=== PATIENT | male | born 1955 | race Caucasian/White ===

== ENCOUNTER 2018-10-26 09:11 | Outpatient (CLI) | payer MEDICARE | END 2018-10-26 09:12 | disposition critical access hospital (66) | LOC: EMS 09:11 | PROVIDERS: ATTEND Surgery | DX: M54.2 Cervicalgia (principal); S01.111A Laceration without foreign body of right eyelid and periocular area, initial encounter; R11.2 Nausea with vomiting, unspecified; R07.81 Pleurodynia; W18.30XA Fall on same level, unspecified, initial encounter; Y92.009 Unspecified place in unspecified non-institutional (private) residence as the place of occurrence of the external cause | CPT/HCPCS: A0425; A0427 ==

== ENCOUNTER 2018-10-26 09:36 | Emergency (ER) | payer MEDICARE ==
[2018-10-26] MEDS ORDERED: SODIUM CHLORIDE 0.9% 1,000 ML IV ONE (09:45)
[2018-10-26] MEDS ORDERED: PROMETHAZINE INJ 25 MG in SODIUM CHLORIDE 0.9% 50 ML IV STA (09:45)
[2018-10-26] MEDS ORDERED: MORPHINE 2 MG/ML CARPUJECT IVP STA ×2 (09:45→11:02)
--- NOTE | 2018-10-26 09:50 | ED Physician Documentation ---
History of Present Illness - Stated complaint Stated Complaint: GLF - Chief complaint Chief Complaint: Trauma Hd/Nk - Additonal information Additional information: hx from pt 62 male fell 2 days ago - approx 10 PM Sat night states the power was out in his house he got up to turn off the space heater thinks he tripped and fell hit right side of head awoke 6 hr later about 4 AM Friday morning had R ALMENDAREZ, blood on floor, neck pain, R rib pain, RUQ pain no arm leg hip pain too painful to get up so was on floor another 24 + hr incont of urine no blood thinners denies illness CP palp etc prior to fall and HI with syncope only drinks rarely (so doubt DT / seizure) Review of Systems Constitutional: denies: Fever Ears: denies: Drainage/discharge Nose: denies: Epistaxis Cardiac: reports: Chest pain / pressure (R ribs) Respiratory: denies: Dyspnea GI: reports: Abdominal Pain (RUQ) : reports: Incontinent (due to not being able to get up off floor) Skin: reports: Laceration (s) Musculoskeletal: reports: Neck pain. denies: Joint pain Neurologic: reports: Generalized weakness, Headache, Head injury. denies: Focal weakness, Numbness Endocrine: denies: Easy bruising / bleeding Immunocompromised: denies: Immunocompromised PD PAST MEDICAL HISTORY - Present Medications Home Medications: Ambulatory Orders Medication Instructions Recorded Confirmed Lidocaine Patch 5% [Lidoderm Patch] 1 patch TOP DAILY PRN #10 patch 10/26/18 - Allergies Allergies/Adverse Reactions: Allergies Allergy/AdvReac Type Severity Reaction Status Date / Time No Known Drug Allergies Allergy Verified 10/26/18 09:43 PD ED PE NORMAL - Vitals Vital signs reviewed: Yes - General General: Alert and oriented X 3 (GCS 15) - HEENT HEENT: PERRL, Other (early ecchymosis to R periorbital and posterior parietal region, lac lateral to right eye appears superfical, EOMI, no proptosis, no hyphema) - Neck Neck: No: No bony TTP (+ TTP - pt could not tolerate collare or towel bolster) - Cardiac Cardiac: RRR - Respiratory Respiratory: No respiratory distress, Clear bilaterally, Other (TTP right mid to lower ribs) - Abdomen Abdomen: Other (TTP RUQ s peritoneal sx or distension) - Derm Derm: Normal color - Extremities Extremities: No deformity, No tenderness to palpate - Neuro Neuro: Alert and oriented X 3, 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, No motor deficit, No sensory deficit, Normal speech Eye Opening: Spontaneous Motor: Obeys Commands Verbal: Oriented GCS Score: 15 Results - Vitals Vitals: Vital Signs - 24 hr 10/26/18 10/26/18 10/26/18 09:38 10:00 11:00 Temperature 36.3 C L Heart Rate 99 98 100 Respiratory 12 18 18 Rate Blood Pressure 162/95 H 149/90 H 124/77 O2 Saturation 96 95 95 10/26/18 10/26/18 10/26/18 11:30 12:00 12:30 Temperature Heart Rate 100 100 96 Respiratory 20 18 18 Rate Blood Pressure 136/78 H 129/88 H 153/90 H O2 Saturation 96 97 100 10/26/18 13:11 Temperature Heart Rate 98 Respiratory 24 Rate Blood Pressure 169/89 H O2 Saturation 100 Oxygen O2 Source Room air - EKG (time done) 0950 Rate: Rate (enter#) Rhythm: NSR Intervals: Normal [place] QRS: Normal Ischemia: Normal ST segments - Labs Labs: Laboratory Tests 10/26/18 10/26/18 10/26/18 09:53 09:53 09:53 WBC 6.7 RBC 4.55 L Hgb 15.2 Hct 45.2 MCV 99.3 H MCH 33.5 H MCHC 33.7 RDW 13.9 Plt Count 208 MPV 8.4 Neut # (Auto) 5.3 Lymph # (Auto) 1.0 L [place] # (Auto) 0.3 Eos # (Auto) 0.0 Baso # (Auto) 0.0 Absolute Nucleated RBC 0.00 Nucleated RBC % 0.0 Sodium 137 Potassium 3.9 Chloride 105 Carbon Dioxide 20 L Anion Gap 12.0 BUN 15 Creatinine 0.6 Estimated GFR (MDRD) 136 Glucose 89 Calcium 8.6 Total Bilirubin 1.2 H AST 45 H ALT 28 Alkaline Phosphatase 85 Total Creatine Kinase 60 Troponin I < 0.04 Total Protein 7.4 Albumin 4.4 Globulin 3.0 Albumin/Globulin Ratio 1.5 Lipase 30 Blood Type Antibody Screen 10/26/18 09:53 WBC RBC Hgb Hct MCV MCH MCHC RDW Plt Count MPV Neut # (Auto) Lymph # (Auto) [place] # (Auto) Eos # (Auto) Baso # (Auto) Absolute Nucleated RBC Nucleated RBC % Sodium Potassium Chloride Carbon Dioxide Anion Gap BUN Creatinine Estimated GFR (MDRD) Glucose Calcium Total Bilirubin AST ALT Alkaline Phosphatase Total Creatine Kinase Troponin I Total Protein Albumin Globulin Albumin/Globulin Ratio Lipase Blood Type AB POSITIVE Antibody Screen NEGATIVE - Rads (name of study) CTH Radiology: See rad report (neg) CTCS Radiology: See rad report (neg) CT chest Radiology: See rad report (no acute) CT AP Radiology: See rad report (no acute) PD MEDICAL DECISION MAKING - ED course ED course: all CTs neg pt given IVF lac is small sup not needing repair pt up and ambulating safely will dc if friend can stay with Departure - Departure Disposition: 01 Home, Self Care Clinical Impression: Fall Qualifiers: Encounter type: initial encounter Qualified Code(s): W19.XXXA - Unspecified fall, initial encounter Head injury Qualifiers: Encounter type: initial encounter Qualified Code(s): S09.90XA - Unspecified injury of head, initial encounter Acute neck sprain Qualifiers: Encounter type: initial encounter Qualified Code(s): S13.9XXA - Sprain of join ts and ligaments of unspecified parts of neck, initial encounter Chest wall contusion Qualifiers: Encounter type: initial encounter Laterality: right Qualified Code(s): S20.211A - Contusion of right front wall of thorax, initial encounter Condition: Good Instructions: ED Contusion Chest Wall, ED Head Injury Closed, ED Sprain Strain Neck Prescriptions: Lidocaine Patch 5% [Lidoderm Patch] 1 patch TOP DAILY PRN #10 patch PRN Reason: pain Comments: Thankfully all the CT scans were fine - no skull spine or rib fracture, no brain bleeding, no liver injury. So I actually think it is safe for you to go home I have prescribed lidocaine patches for the pain to your ribs - and you can take tylenol as well. Use the incentive spirometer we gave you to keep the lungs inflated and prevent collapse and infection Also zofran for the vomiting. Please rest. Drink plenty of fluids Stay with another responsible adult who can watch over you for the next 2 days. Return if worse in any way Discharge Date/Time: 10/26/18 14:00
[2018-10-26] MEDS ORDERED: IOVERSOL 320 100 ML VIAL IVP ONE ×2 (09:55→11:48)
[2018-10-26 10:04] LABS: BASOPHILS % (AUTO) 0.7 %; EOSINOPHILS % (AUTO) 0.3 %; HGB - HEMOGLOBIN 15.2 g/dL (14.0-18.0); LYMPHOCYTES % (AUTO) 14.4 %; MEAN CORPUSCULAR HEMOGLOBIN 33.5 pg (27.0-31.0); MEAN CORPUSCULAR HGB CONC 33.7 g/dL (32.0-36.0); MEAN CORPUSCULAR VOLUME 99.3 fL (80.0-94.0); MEAN PLATELET VOLUME 8.4 fL (7.4-11.4); MONOCYTES # (AUTO) 0.3 10^3/uL (0.0-1.0); MONOCYTES % (AUTO) 5.1 %; NEUTROPHILS # (AUTO) 5.3 10^3/uL (1.5-6.6); NEUTROPHILS % (AUTO) 79.5 %; PLT - PLATELET COUNT 208 10^3/uL (130-450); RED BLOOD COUNT 4.55 10^6/uL (4.70-6.10); RED CELL DISTRIBUTION WIDTH 13.9 % (12.0-15.0); WHITE BLOOD COUNT 6.7 x10^3/uL (4.8-10.8)
[2018-10-26 10:19] LABS: ALBUMIN 4.4 g/dL (3.2-5.5); ALBUMIN/GLOBULIN RATIO 1.5 (1.0-2.2); BILIRUBIN,TOTAL 1.2 mg/dL (0.2-1.0); CALCIUM 8.6 mg/dL (8.5-10.3); CREATININE 0.6 mg/dL (0.6-1.2); TOTAL PROTEIN 7.4 g/dL (6.7-8.2)
--- NOTE | 2018-10-26 11:12 | CT Report ---
Reason: fall HI LOC lac Procedure Date: 10/26/2018 Accession Number: [id number] / [id number] Procedure: CT - Head W/O CPT Code: FULL RESULT: EXAM: CT HEAD EXAM DATE: 10/26/2018 10:25 AM. CLINICAL HISTORY: Fall, head injury, laceration. COMPARISON: None. TECHNIQUE: Multiaxial CT images were obtained from the foramen magnum to the vertex. Reformats: Sagittal and coronal. IV contrast: None. In accordance with CT protocol optimization, one or more of the following dose reduction techniques were utilized for this exam: automated exposure control, adjustment of mA and/or KV based on patient size, or use of iterative reconstructive technique. FINDINGS: Parenchyma: No intraparenchymal hemorrhage. No evidence of mass, midline shift, or CT findings of infarction. Garvey-white differentiation is distinct. Extraaxial Spaces: Normal for age. No subdural or epidural collections identified. Ventricles: Normal in size and position. Sinuses and Orbits: Imaged paranasal sinuses, orbits, and mastoids show no significant abnormality. Bones: No evidence of fracture or calvarial defect. Other: Note is made of a bandage along the posterior head. IMPRESSION: No acute intracranial abnormalities detected. RADIA
--- NOTE | 2018-10-26 11:13 | CT Report ---
Reason: fall HI neck pain Procedure Date: 10/26/2018 Accession Number: [id number] / [id number] Procedure: CT - Cervical Spine W/O CPT Code: FULL RESULT: EXAM: CT CERVICAL SPINE WITHOUT CONTRAST DATE: 10/26/2018 10:25 AM. HISTORY: Fall, high neck pain. COMPARISONS: None. TECHNIQUE: Thin-section axial images were acquired of the cervical spine without contrast. Post-processing: Coronal and sagittal reformats. Other: None. In accordance with CT protocol optimization, one or more of the following dose reduction techniques were utilized for this exam: automated exposure control, adjustment of mA and/or KV based on patient size, or use of iterative reconstructive technique. FINDINGS: Alignment: No scoliosis or spondylolisthesis. Bones: No fracture or bone lesion. Interspace Levels/Facets: Mild multilevel degenerative changes are most pronounced at C6-C7. Musculature: Normal. No fatty atrophy. Other: The paravertebral and prevertebral soft tissues are unremarkable. The lung apices are clear. IMPRESSION: No acute osseous injury to the cervical spine. RADIA
--- NOTE | 2018-10-26 11:16 | CT Report ---
Reason: fall R rib pain Procedure Date: 10/26/2018 Accession Number: [id number] / [id number] Procedure: CT - Chest W/ CPT Code: FULL RESULT: EXAM: CT CHEST EXAM DATE: 10/26/2018 10:51 AM. CLINICAL HISTORY: Acute pain due to trauma. COMPARISONS: None. TECHNIQUE: Routine helical CT imaging was performed through the chest. IV contrast: 90 mL Optiray 320. Reconstructions: Coronal and sagittal. In accordance with CT protocol optimization, one or more of the following dose reduction techniques were utilized for this exam: automated exposure control, adjustment of mA and/or KV based on patient size, or use of iterative reconstructive technique. FINDINGS: Lungs/Pleura: Minor dependent atelectasis is seen. There is no effusion, pulmonary contusion, or pneumothorax. Mediastinum: Heart size is normal. Moderate calcified coronary artery disease is seen. There is no pericardial effusion or adenopathy. Bones: No displaced rib fracture or gross deformity of the osseous structures identified. Visualized Abdomen: See separate report. Other: None. IMPRESSION: No acute cardiopulmonary or osseous abnormality identified. RADIA
--- NOTE | 2018-10-26 11:20 | CT Report ---
Reason: trauma RUQ pain Procedure Date: 10/26/2018 Accession Number: [id number] / [id number] Procedure: CT - Abdomen/Pelvis W/ CPT Code: FULL RESULT: EXAM: CT ABDOMEN AND PELVIS EXAM DATE: 10/26/2018 10:51 AM. CLINICAL HISTORY: Right upper quadrant pain. Acute pain due to trauma. COMPARISONS: None. TECHNIQUE: Routine helical CT imaging was performed through the abdomen and pelvis. IV contrast: 90 mL Optiray 320. Enteric contrast: No. Reconstructions: Coronal and sagittal. In accordance with CT protocol optimization, one or more of the following dose reduction techniques were utilized for this exam: automated exposure control, adjustment of mA and/or KV based on patient size, or use of iterative reconstructive technique. FINDINGS: Lung Bases: See separate report. Liver: Normal. No masses. Gallbladder/Bile Ducts: Cholecystectomy changes are seen. There is no biliary dilation. Spleen: Normal. Pancreas: Normal. Adrenal Glands: Normal. Kidneys: Small exophytic cyst in the mid left kidney is seen. No masses or hydronephrosis. Peritoneal Cavity/Bowel: There is mild predominantly left hemicolon diverticulosis without evidence of diverticulitis. There is no obstruction or ileus. No free fluid or free air. The appendix is well visualized and normal. Pelvic Organs: Normal. The bladder and visualized pelvic organs are within normal limits. Vasculature: No aneurysms or other significant abnormality. Bones: There is deformity of bilateral obturator rings related to old trauma. Other: None. IMPRESSION: 1. No acute osseous abnormality demonstrated status post cholecystectomy. 2. Mild sigmoid diverticulosis without diverticula noticed. 3. Deformity of bilateral obturator rings related to old trauma. No acute osseous abnormality is demonstrated. RADIA
[2018-10-26] MEDS ORDERED: PROMETHAZINE INJ 12.5 MG in SODIUM CHLORIDE 0.9% 50 ML IV STA (12:08)
[2018-10-26] MEDS ORDERED: ACETAMINOPHEN 325 MG TABLET PO STA (12:18)
[2018-10-26] MEDS ORDERED: LIDOCAINE PATCH 5% TOP STA (12:18)
[2018-10-26 13:12] VITALS: BP 169/89
== END 2018-10-26 14:00 | disposition home or self-care (01) ==
LOC: EDUNIT# → ED 09:36
DX: S05.31XA Ocular laceration without prolapse or loss of intraocular tissue, right eye, initial encounter (principal); S09.90XA Unspecified injury of head, initial encounter; S13.9XXA Sprain of joints and ligaments of unspecified parts of neck, initial encounter; S20.211A Contusion of right front wall of thorax, initial encounter; W01.10XA Fall on same level from slipping, tripping and stumbling with subsequent striking against unspecified object, initial encounter; Y92.009 Unspecified place in unspecified non-institutional (private) residence as the place of occurrence of the external cause
CPT/HCPCS: 36415; 70450; 71260; 72125; 74177; 80053; 82550; 83690; 84484; 85025; 86850; 86900; 86901; 93005; 96361; 96365; 96375; 96376; 99284; A9270; J7040; Q9967

== ENCOUNTER 2019-06-24 09:40 | Outpatient (CLI) | payer MEDICARE | END 2019-06-24 09:41 | disposition short-term general hospital (02) | LOC: EMS 09:40 | PROVIDERS: ATTEND Surgery | DX: R51 Headache (principal); R11.2 Nausea with vomiting, unspecified ==

== ENCOUNTER 2020-01-01 16:47 | Outpatient (CLI) | payer MEDICARE | END 2020-01-01 23:59 | disposition critical access hospital (66) | LOC: EMS 16:47 | PROVIDERS: ATTEND Surgery | DX: R11.2 Nausea with vomiting, unspecified (principal); R19.7 Diarrhea, unspecified | CPT/HCPCS: A0425; A0427 ==

== ENCOUNTER 2020-01-01 17:14 | Emergency (ER) | payer MEDICARE ==
[2020-01-01] MEDS ORDERED: SODIUM CHLORIDE 0.9% 1,000 ML IV ONE (17:18)
[2020-01-01] MEDS ORDERED: LOPERAMIDE 2 MG CAPSULE PO STA (17:18)
[2020-01-01] MEDS ORDERED: PROMETHAZINE INJ 25 MG in SODIUM CHLORIDE 0.9% 50 ML IV STA ×2 (17:18→19:05)
--- NOTE | 2020-01-01 17:20 | ED Physician Documentation ---
PD HPI NVD - Stated complaint Stated Complaint: VOMITING - History obtained from History obtained from: Patient (Relatively healthy 64-year-old gentleman developed profuse vomiting and diarrhea starting last night. He tried a CBD tincture that was ineffective. There is minimal abdominal pain with it. No headache. No fevers. No recent travel.) - Additonal information Additional information: Received 4 mg of Zofran in route without improvement. Review of Systems Ten Systems: 10 systems reviewed and negative Constitutional: denies: Fever, Chills Cardiac: denies: Chest pain / pressure, Palpitations Respiratory: denies: Dyspnea, Cough GI: reports: Nausea, Vomiting, Diarrhea. denies: Abdominal Pain : denies: Dysuria, Frequency PD PAST MEDICAL HISTORY - Past Medical History Past Medical History: No - Past Surgical History Past Surgical History: Yes General: Cholecystectomy - Allergies Allergies/Adverse Reactions: Allergies Allergy/AdvReac Type Severity Reaction Status Date / Time doxycycline Allergy Unknown Verified 01/01/20 17:20 Penicillins Allergy Unknown Verified 01/01/20 17:20 - Social History Does the pt smoke?: No Smoking Status: Never smoker PD ED PE NORMAL - Vitals Vital signs reviewed: Yes - General General: Alert and oriented X 3, No acute distress - HEENT HEENT: PERRL, EOMI - Neck Neck: Supple, no meningeal sign, No bony TTP - Cardiac Cardiac: RRR, No murmur - Respiratory Respiratory: No respiratory distress, Clear bilaterally - Abdomen Abdomen: Normal bowel sounds, Soft, Non tender - Back Back: No CVA TTP, No spinal TTP - Derm Derm: Normal color, Warm and dry - Extremities Extremities: No edema, No calf tenderness / cord - Neuro Neuro: Alert and oriented X 3, No motor deficit, No sensory deficit, Normal speech Results - Vitals Vitals: Vital Signs - 24 hr 01/01/20 01/01/20 17:20 17:51 Temperature 37 C 37.2 C Heart Rate 99 105 H Respiratory 22 18 Rate Blood Pressure 167/90 H 158/89 H O2 Saturation 100 100 Oxygen O2 Source Room air - Labs Labs: Laboratory Tests 01/01/20 01/01/20 01/01/20 17:40 17:40 17:40 WBC 7.1 RBC 4.00 L Hgb 14.2 Hct 41.9 L MCV 104.8 H MCH 35.5 H MCHC 33.9 RDW 13.1 Plt Count 188 MPV 9.9 Neut # (Auto) 6.3 Lymph # (Auto) 0.4 L [place] # (Auto) 0.3 Eos # (Auto) 0.0 Baso # (Auto) 0.0 Absolute Nucleated RBC 0.00 Nucleated RBC % 0.0 Sodium 140 Potassium 3.1 L Chloride 102 Carbon Dioxide 23 Anion Gap 15.0 H BUN 12 Creatinine 0.7 Estimated GFR (MDRD) 113 Glucose 127 H Calcium 9.1 Total Bilirubin 2.2 H AST 56 H ALT 28 Alkaline Phosphatase 83 Total Protein 6.9 Albumin 4.0 Globulin 2.9 Albumin/Globulin Ratio 1.4 Lipase 35 Ethyl Alcohol < 5.0 PD MEDICAL DECISION MAKING - ED course ED course: 64-year-old gentleman with a clinical syndrome consistent with gastroenteritis with vomiting and diarrhea. Benign abdominal examination. He received Zofran in route without improvement and requested some Phenergan for specifically and this was administered along with some Imodium and IV fluids. He was doing much better after this, developed some leg cramps but that responded to Toradol. Nausea came back a little bit and was given some more Phenergan. Passed a p.o. challenge and requested discharge. Departure - Departure Disposition: 01 Home, Self Care Clinical Impression: Gastroenteritis Condition: Good Record reviewed to determine appropriate education?: Yes Instructions: ED Gastroenteritis Viral Comments: Return tomorrow morning if not better, anytime if worse. You do have mild elevation of your liver enzymes, please mention this in follow-up with your doctor, follow-up with your doctor next available appointment.
[2020-01-01 17:45] LABS: BASOPHILS % (AUTO) 0.4 %; HGB - HEMOGLOBIN 14.2 g/dL (14.0-18.0); LYMPHOCYTES # (AUTO) 0.4 10^3/uL (1.5-3.5); LYMPHOCYTES % (AUTO) 5.8 %; MEAN CORPUSCULAR HEMOGLOBIN 35.5 pg (27.0-31.0); MEAN CORPUSCULAR HGB CONC 33.9 g/dL (32.0-36.0); MEAN CORPUSCULAR VOLUME 104.8 fL (80.0-94.0); MEAN PLATELET VOLUME 9.9 fL (7.4-11.4); MONOCYTES # (AUTO) 0.3 10^3/uL (0.0-1.0); MONOCYTES % (AUTO) 4.4 %; NEUTROPHILS # (AUTO) 6.3 10^3/uL (1.5-6.6); PLT - PLATELET COUNT 188 10^3/uL (130-450); RED CELL DISTRIBUTION WIDTH 13.1 % (12.0-15.0); WHITE BLOOD COUNT 7.1 x10^3/uL (4.8-10.8)
[2020-01-01 18:00] LABS: ALBUMIN/GLOBULIN RATIO 1.4 (1.0-2.2); BILIRUBIN,TOTAL 2.2 mg/dL (0.2-1.0); CALCIUM 9.1 mg/dL (8.5-10.3); CREATININE 0.7 mg/dL (0.6-1.2); TOTAL PROTEIN 6.9 g/dL (6.7-8.2)
[2020-01-01] MEDS ORDERED: KETOROLAC 30 MG/ML VIAL IVP STA (18:14)
[2020-01-01] MEDS ORDERED: ONDANSETRON ODT 4 MG Prepack 2 TL STA (19:05)
[2020-01-01 19:54] VITALS: BP 153/68
== END 2020-01-01 19:55 | disposition home or self-care (01) ==
LOC: EDUNIT# → ED 17:14
DX: K52.9 Noninfective gastroenteritis and colitis, unspecified (principal)
CPT/HCPCS: 36415; 80053; 83690; 85025; 96365; 96366; 96375; 99283; A9270; J7040; 80320

== ENCOUNTER 2020-05-01 07:35 | Outpatient (CLI) | payer MEDICARE | END 2020-05-01 07:36 | disposition critical access hospital (66) | LOC: EMS 07:35 | PROVIDERS: ATTEND Surgery | DX: R11.2 Nausea with vomiting, unspecified (principal) | CPT/HCPCS: A0425; A0427 ==

== ENCOUNTER 2020-05-01 08:00 | Emergency (ER) | payer MEDICARE ==
[2020-05-01] MEDS ORDERED: PROMETHAZINE INJ 25 MG in SODIUM CHLORIDE 0.9% 50 ML IV STA (08:28)
[2020-05-01] MEDS ORDERED: SODIUM CHLORIDE 0.9% 1,000 ML IV STA (08:28)
--- NOTE | 2020-05-01 08:31 | ED Physician Documentation ---
History of Present Illness - Stated complaint Stated Complaint: N/V - Chief complaint Chief Complaint: Abd Pain - History obtained from History obtained from: Patient - Additonal information Additional information: Patient comes emergency department complaining of nausea and vomiting for the last 6 3 days. He states that he was previously feeling well, and was not exposed to any sick contacts that he knows of. He states he has not had any diarrhea or fevers. He states his entire abdomen feels "sore" from all the vomiting, but denies any deeper pain. He states that he has not been able to hold anything down since the symptoms started. Patient denies any chest symptoms. No other complaints at this time. He states he has had a cholecystectomy. No history of any other intra-abdominal issues. No history of cyclical vomiting. Patient states he had a similar episode 6 months ago and that Phenergan was very helpful. He had a work-up at that time, but no distinct cause of the symptoms was found. Review of Systems Ten Systems: 10 systems reviewed and negative Constitutional: reports: Reviewed and negative Eyes: reports: Reviewed and negative Ears: reports: Reviewed and negative Nose: reports: Reviewed and negative Throat: reports: Reviewed and negative Cardiac: reports: Reviewed and negative Respiratory: reports: Reviewed and negative GI: reports: Abdominal Pain, Nausea, Vomiting : reports: Reviewed and negative Skin: reports: Reviewed and negative Musculoskeletal: reports: Reviewed and negative Neurologic: reports: Reviewed and negative Psychiatric: reports: Reviewed and negative Endocrine: reports: Reviewed and negative Immunocompromised: reports: Reviewed and negative PD PAST MEDICAL HISTORY - Past Medical History Cardiovascular: None Respiratory: None Neuro: None Endocrine/Autoimmune: None GI: GERD : Other HEENT: None Psych: Depression Musculoskeletal: None Derm: None - Past Surgical History Past Surgical History: Yes General: Cholecystectomy - Present Medications Home Medications: Ambulatory Orders Medication Instructions Recorded Confirmed Ondansetron Odt [Zofran] 4 mg TL Q6H PRN #10 tablet 05/01/20 Promethazine Supp [Phenergan Supp] 25 mg MN Q6H PRN #25 supp 05/01/20 - Allergies Allergies/Adverse Reactions: Allergies Allergy/AdvReac Type Severity Reaction Status Date / Time doxycycline Allergy Unknown Verified 01/01/20 17:20 Penicillins Allergy Unknown Verified 01/01/20 17:20 - Social History Does the pt smoke?: No Smoking Status: Never smoker Does the pt drink ETOH?: Yes Does the pt have substance abuse?: Yes - Immunizations Immunizations are current?: No Immunizations: TDAP >10years/unknown - POLST Patient has POLST: No PD ED PE NORMAL - Vitals Vital signs reviewed: Yes - General General: Alert and oriented X 3, No acute distress - HEENT HEENT: Atraumatic, PERRL, EOMI, Moist mucous membranes - Neck Neck: Supple, no meningeal sign - Cardiac Cardiac: RRR, No murmur - Respiratory Respiratory: No respiratory distress, Clear bilaterally - Abdomen Abdomen: Soft, Non distended, Other (Patient has moderate diffuse tenderness without rebound or guarding) - Derm Derm: Normal color, Warm and dry, No rash - Extremities Extremities: No deformity, No edema, No calf tenderness / cord - Neuro Neuro: Alert and oriented X 3, Other (Grossly normal) - Psych Psych: Normal mood, Normal affect Results - Vitals Vitals: Vital Signs - 24 hr 05/01/20 05/01/20 12:16 13:43 Temperature 37.2 C Heart Rate 80 70 Respiratory 16 18 Rate Blood Pressure 144/76 H 140/89 H O2 Saturation 97 95 Oxygen O2 Source Room air - Labs Labs: Laboratory Tests 05/01/20 05/01/20 09:46 09:46 WBC 6.0 RBC 3.79 L Hgb 13.9 L Hct 40.5 L MCV 106.9 H MCH 36.7 H MCHC 34.3 RDW 13.1 Plt Count 107 L MPV 10.6 Neut # (Auto) 5.3 Lymph # (Auto) 0.2 L [place] # (Auto) 0.3 Eos # (Auto) 0.1 Baso # (Auto) 0.0 Absolute Nucleated RBC 0.02 Nucleated RBC % 0.3 Sodium 137 Potassium 3.5 Chloride 104 Carbon Dioxide 20 L Anion Gap 13.0 BUN 9 Creatinine 0.7 Estimated GFR (MDRD) 113 Glucose 84 Calcium 8.1 L Total Bilirubin 2.0 H AST 75 H ALT 38 Alkaline Phosphatase 86 Total Protein 6.0 L Albumin 3.5 Globulin 2.5 Albumin/Globulin Ratio 1.4 Lipase 50 PD MEDICAL DECISION MAKING - ED course Complexity details: reviewed results, re-evaluated patient, considered differential, d/w patient ED course: Patient was treated symptomatically with IV fluids and Phenergan, and worked up with labs. Labs were unremarkable. Pt had been feeling better, but vomited a couple more times in the ED. He was given a dose of Zofran, and ultimately, another 12.5 mg of Phenergan, before he was feeling well enough to go home. He has been given prescriptions for antiemetics. We have discussed home management of the sx, as well as the usual indications for return. Departure - Departure Disposition: 01 Home, Self Care Clinical Impression: Vomiting Qualifiers: Vomiting type: bilious vomiting Nausea presence: with nausea Qualified Code(s): R11.14 - Bilious vomiting Condition: Stable Instructions: ED Nausea Vomiting Prescriptions: Promethazine Supp [Phenergan Supp] 25 mg [place] Q6H PRN #25 supp PRN Reason: nausea Ondansetron Odt [Zofran] 4 mg TL Q6H PRN #10 tablet PRN Reason: Nausea / Vomiting Comments: Your labs look good. Most likely, you have contracted 1 of the many viruses that cause nausea and vomiting. In general, these are self-limited and you should be feeling better in the next few days. However, if you continue to have issues with unexplained vomiting, you may need to see your doctor for referral to gastroenterology to determine whether you have any underlying issues that may be predisposing you to nausea and vomiting. Discharge Date/Time: 05/01/20 13:45
[2020-05-01 09:52] LABS: BASOPHILS % (AUTO) 0.3 %; EOSINOPHILS # (AUTO) 0.1 10^3/uL (0.0-0.7); EOSINOPHILS % (AUTO) 1.7 %; HGB - HEMOGLOBIN 13.9 g/dL (14.0-18.0); LYMPHOCYTES # (AUTO) 0.2 10^3/uL (1.5-3.5); MEAN CORPUSCULAR HEMOGLOBIN 36.7 pg (27.0-31.0); MEAN CORPUSCULAR HGB CONC 34.3 g/dL (32.0-36.0); MEAN CORPUSCULAR VOLUME 106.9 fL (80.0-94.0); MEAN PLATELET VOLUME 10.6 fL (7.4-11.4); MONOCYTES # (AUTO) 0.3 10^3/uL (0.0-1.0); MONOCYTES % (AUTO) 5.7 %; NEUTROPHILS # (AUTO) 5.3 10^3/uL (1.5-6.6); NEUTROPHILS % (AUTO) 87.6 %; PLT - PLATELET COUNT 107 10^3/uL (130-450); RED BLOOD COUNT 3.79 10^6/uL (4.70-6.10); RED CELL DISTRIBUTION WIDTH 13.1 % (12.0-15.0)
[2020-05-01 10:04] LABS: ALBUMIN 3.5 g/dL (3.2-5.5); ALBUMIN/GLOBULIN RATIO 1.4 (1.0-2.2); CALCIUM 8.1 mg/dL (8.5-10.3); CREATININE 0.7 mg/dL (0.6-1.2)
[2020-05-01] MEDS ORDERED: diphenhydrAMINE INJ 50 MG/ML VIAL IVP STA (10:52)
[2020-05-01] MEDS ORDERED: ONDANSETRON 4 MG/2 ML VIAL IVP STA (10:52)
[2020-05-01] MEDS ORDERED: KETOROLAC 30 MG/ML VIAL IVP STA (10:52)
[2020-05-01] MEDS ORDERED: PROMETHAZINE INJ 12.5 MG in SODIUM CHLORIDE 0.9% 50 ML IV STA (12:52)
[2020-05-01 13:44] VITALS: BP 140/89
== END 2020-05-01 13:45 | disposition home or self-care (01) ==
LOC: EDUNIT# → ED 08:00
DX: R11.14 Bilious vomiting (principal); Z90.49 Acquired absence of other specified parts of digestive tract
CPT/HCPCS: 36415; 80053; 83690; 85025; 96365; 96366; 96375; 99284; J1200; J7040

== ENCOUNTER 2021-11-13 10:36 | Outpatient (CLI) | payer MEDICARE | END 2021-11-13 10:37 | disposition critical access hospital (66) | LOC: EMS 10:36 | DX: M25.562 Pain in left knee (principal); M25.462 Effusion, left knee; M54.2 Cervicalgia | CPT/HCPCS: A0425; A0429 ==

== ENCOUNTER 2021-11-13 11:01 | Emergency (ER) | payer MEDICARE ==
[2021-11-13] MEDS ORDERED: HYDROmorphone 1 MG/ML CARPUJECT IM STA (11:49)
[2021-11-13] MEDS ORDERED: ACETAMINOPHEN 325 MG TABLET PO STA (11:50)
--- NOTE | 2021-11-13 11:58 | ED Physician Documentation ---
History of Present Illness - Stated complaint Stated Complaint: LT KNEE PX - Chief complaint Chief Complaint: Ext Problem - Additonal information Additional information: 65-year-old male presents to the emergency department for evaluation of 1 week neck pain as well as left knee pain. Denies any fevers, no falls or trauma. He has been taking Advil PM but only once daily without relief of pain. He was supposed to see his primary care provider yesterday but due to pain he missed the appointment therefore he presents today via EMS. Over the last week he has had some mild swelling of the left knee. No erythema. He is ambulatory on the knee though it is painful. He is also begun to develop some cervical neck pain with radiation down his back. Difficulty moving his head to the right. No paresthesias. He did speak with his primary doctor and is scheduled to see her now on the . He is concerned that he could have psoriatic arthritis. He reports that a prescription for a steroid burst has been sent to the [email or web address] but they were out of the medication so it may be a few days before can be filled. He is requesting analgesia here in the ER. Review of Systems Constitutional: denies: Fever, Chills Eyes: reports: Reviewed and negative Nose: reports: Reviewed and negative Cardiac: reports: Reviewed and negative Respiratory: reports: Reviewed and negative GI: reports: Reviewed and negative : reports: Reviewed and negative Musculoskeletal: reports: Neck pain, Joint pain, Joint swelling Neurologic: reports: Reviewed and negative PD PAST MEDICAL HISTORY - Past Medical History Cardiovascular: None Respiratory: None Neuro: None Endocrine/Autoimmune: None GI: GERD : Other HEENT: None Psych: Depression Musculoskeletal: None Derm: None - Past Surgical History Past Surgical History: Yes General: Cholecystectomy - Present Medications Home Medications: Ambulatory Orders Medication Instructions Recorded Confirmed Ondansetron Odt [Zofran] 4 mg TL Q6H PRN #10 tablet 05/01/20 Promethazine Supp [Phenergan Supp] 25 mg [place] Q6H PRN #25 supp 05/01/20 HYDROcod/ACETAM 5/325 [[place] 5/325] 1 tab PO BID PRN #5 tablet 11/13/21 - Allergies Allergies/Adverse Reactions: Allergies Allergy/AdvReac Type Severity Reaction Status Date / Time doxycycline Allergy Unknown Verified 11/13/21 11:10 Penicillins Allergy Unknown Verified 11/13/21 11:10 - Social History Does the pt smoke?: No Smoking Status: Never smoker Does the pt drink ETOH?: Yes Does the pt have substance abuse?: Yes - Immunizations Immunizations are current?: No Immunizations: TDAP >10years/unknown - POLST Patient has POLST: No PD ED PE EXPANDED - General General: Alert, No acute distress, Well developed/nourished - Neck Neck: Limited ROM (Reduced right lateral rotation secondary to pain. No midline spinous tenderness. Mild right lateral paraspinous tenderness. No swelling or erythema. Normal forward flexion and extension.). No: Bony TTP - Cardiac Cardiac: Regular Rate, Radial strong equal, Pedal strong equal, Cap refill < 2 sec - Respiratory Respiratory: Clear to ausultation jaquan. No: Distress, Labored - Abdomen Abdomen: Normal Bowel sounds. No: Tender to palpation - Extremities Extremities: Left knee (Mild swelling without erythema. No joint laxity. No pain with micromotion tenderness but active range of motion induces pain medially. Palpable effusion.), Other (motor strength 5/5 BUE at shoulder, elbow and wrists) - Neuro Neuro: Alert and Oriented X 3, CNII-XII intact - GCS Eye Opening: Spontaneous Motor: Obeys Commands Verbal: Oriented Total: 15 Results - Vitals Vitals: Vital Signs - 24 hr 11/13/21 11:10 Temperature 37.1 C Heart Rate 86 Respiratory 16 Rate Blood Pressure 138/76 H O2 Saturation 99 Oxygen O2 Source Room air - Rads (name of study) Left knee Radiology: Final report received (Mild medial femoral-tibial compartment osteoarthritis and moderate joint effusion. No fracture or dislocation.) PD MEDICAL DECISION MAKING - ED course Complexity details: reviewed results, re-evaluated patient, considered differential, d/w patient ED course: 65-year-old male presents emergency department with 1 week of acute left knee pain as well as neck pain. He has difficulty moving his neck to the right. Denies any falls or trauma. There have been no fevers. He missed an appointment with his primary care provider yesterday to discuss the joint pain secondary to being in severe pain thus he presents here via EMS. On exam there is mild swelling and tenderness of the left knee medially. No micromotion tenderness. He is able to bear full weight though he does have an antalgic gait. X-ray is suggestive of medial knee compartment arthritis. Patient was given a dose of Dilaudid here in the emergency department with good improvement in his pain and symptoms. He does report that his primary care provider have written a prescription for some outpatient steroids that the patient has yet to fill. Given the lack of suspicion for a septic arthritis will defer any labs. A limited prescription for hydrocodone is going to be sent to the pharmacy. Patient was advised on the appropriate dosing of outpatient tnrs-cns-ugrpbpu medications for Tylenol and ibuprofen in the absence of steroids. Emergent and worsening return precautions were discussed. I am prescribing a short course of short-acting opioid pain medication for this patient. I have reviewed the patients [employer] and no concerning findings were noted. I have discussed that the opioids are for short term therapy only, and will not be refilled from the ED. Departure - Departure Disposition: Home, Self Care Clinical Impression: Arthritis of knee, left, Neck pain Condition: Stable Record reviewed to determine appropriate education?: Yes Follow-Up: THONY RUTH ARNP [Primary Care Provider] - Prescriptions: HYDROcod/ACETAM 5/325 [[place] 5/325] 1 tab PO BID PRN #5 tablet PRN Reason: Pain Comments: Pedro Pablo you are seen in the emergency department today for neck and knee pain. The x-ray of your knee suggest that it you have a mild arthritis that is developing. This is the most likely cause of the pain. Please fill the prescription for the steroid to the your primary care provider prescribed. I suspect that when she began taking these your symptoms will feel a lot better over the next 12 to 36 hours. While you are taking the steroids it is important that you avoid taking an NSAID medication like ibuprofen, Motrin or Advil. When you are not taking the steroids it is safe to take an appropriate dose of ptjj-ysx-anufacp pain medication such as ibuprofen, Motrin or Advil. The recommended dose would be 600 mg 2 or 3 times a day for any discomfort. Alternatively you can take Tylenol 500 mg with food 2-3 times a day as well. When you see your primary care provider on the please discuss this ED visit. They may want to consider outpatient laboratory testing. If at any point you find that your symptoms are worsening, he has knee redness, develop any fevers, have chest pain or shortness of air then please return immediately to the ER for second evaluation. I am prescribing a short course of narcotic pain medication for you. These are potentially dangerous and addictive medications that should be used carefully. These medications may constipate you. Take an ogvx-nks-ivnnlvt stool softener (docusate) twice daily with plenty of water while taking these medications. If you go 24 hours without a bowel movement, take bejo-bny-trgjars miralax, per package instructions. Do not drink or drive while taking these medications. If you received narcotic or sedating medications while in the emergency department, do not drive for 24 hours. Store this medication in a safe, secure place and out of reach of children. It is a violation of federal law to give or sell this medication to another person or to use in a manner other than prescribed. The ED will not refill narcotic prescriptions, including prescriptions lost or stolen. To dispose of unwanted medications: 1. [facility] at [address] in [place] has a medication drop box. They accept prescription medications (in pill form) Friday through Friday 9:00 a.m. to 5:00 p.m. 2. The [facility] [employer] accepts prescription medications (in pill form only) for disposal year round. Call for more informa tion. 3. Contact the [facility] for the next [facility] sponsored prescription drug collection event. , [phone], or [phone]; Note that many narcotic pain relievers also contain Tylenol/acetaminophen. Please ensure that your total dose of acetaminophen from all sources does not exceed 3 g (3000 mg) per day.
--- NOTE | 2021-11-13 12:18 | XRAY Report ---
PROCEDURE: Knee 2 View LT INDICATIONS: pain and swellign X 1 week TECHNIQUE: 2 views of the left knee(s) were acquired. COMPARISON: None. FINDINGS: Bones: No fractures or dislocations. Mild medial femoral tibial compartment osteoarthritis is seen with joint space narrowing. No suspicious bony lesions. Soft tissues: Moderate suprapatellar joint effusion is seen. No suspicious soft tissue calcification s. IMPRESSION: Mild medial femoral tibial compartment osteoarthritis and moderate joint effusion. No fr acture or dislocation. If indicated, MRI of knee can be done for evaluation of internal derangement. Reviewed by: Manuel Angela MD on 11/13/2021 12:16 PM PST Approved by: Manuel Angela MD on 11/13/2021 12:16 PM PST Station ID: [id number]
[2021-11-13 12:46] VITALS: BP 128/78
== END 2021-11-13 12:44 | disposition home or self-care (01) ==
LOC: EDUNIT# → EDBD → ED 11:01
DX: M17.12 Unilateral primary osteoarthritis, left knee (principal); M19.09 Primary osteoarthritis, other specified site
CPT/HCPCS: 73560; 96372; 99283; A9270; J1170

== ENCOUNTER 2022-04-15 08:17 | Outpatient (CLI) | payer MEDICARE | END 2022-04-15 08:18 | disposition short-term general hospital (02) | LOC: EMS 08:17 | DX: R11.2 Nausea with vomiting, unspecified (principal) | CPT/HCPCS: A0425; A0427 ==

== ENCOUNTER 2022-12-30 12:45 | Outpatient (CLI) | payer MEDICARE | END 2022-12-30 12:46 | disposition critical access hospital (66) | LOC: EMS 12:45 | DX: R07.9 Chest pain, unspecified (principal); M25.511 Pain in right shoulder | CPT/HCPCS: A0425; A0429 ==

== ENCOUNTER 2022-12-30 13:14 | Emergency (ER) | payer MEDICARE ==
[2022-12-30 13:50] VITALS: BP 127/85
--- NOTE | 2022-12-30 14:15 | XRAY Report ---
PROCEDURE: Chest 1 View X-Ray INDICATIONS: Chest pain TECHNIQUE: One view of the chest was acquired. COMPARISON: None. FINDINGS: Surgical changes and devices: None. Lungs and pleura: No pleural effusions or pneumothorax. Lungs are clear. Mediastinum: Mediastinal contours appear normal. Heart size is normal. Bones and chest wall: No suspicious bony lesions. Overlying soft tissues appear unremarkable. IMPRESSION: No acute cardiopulmonary process. Reviewed by: Giacomo Hinds on 12/30/2022 2:13 PM [facility] Approved by: Giacomo Hinds on 12/30/2022 2:13 PM [facility] Station ID: [id number]
[2022-12-30 14:19] LABS: BASOPHILS # (AUTO) 0.1 10^3/uL (0.0-0.1); EOSINOPHILS # (AUTO) 0.1 10^3/uL (0.0-0.7); EOSINOPHILS % (AUTO) 2.1 %; HCT - HEMATOCRIT 44.8 % (42.0-52.0); HGB - HEMOGLOBIN 14.5 g/dL (14.0-18.0); LYMPHOCYTES # (AUTO) 1.6 10^3/uL (1.5-3.5); LYMPHOCYTES % (AUTO) 30.2 %; MEAN CORPUSCULAR HEMOGLOBIN 31.7 pg (27.0-31.0); MEAN CORPUSCULAR HGB CONC 32.4 g/dL (32.0-36.0); MEAN PLATELET VOLUME 10.1 fL (7.4-11.4); MONOCYTES # (AUTO) 0.4 10^3/uL (0.0-1.0); MONOCYTES % (AUTO) 6.7 %; NEUTROPHILS # (AUTO) 3.2 10^3/uL (1.5-6.6); NEUTROPHILS % (AUTO) 59.8 %; PLT - PLATELET COUNT 200 10^3/uL (130-450); RED BLOOD COUNT 4.57 10^6/uL (4.70-6.10); RED CELL DISTRIBUTION WIDTH 13.2 % (12.0-15.0); WHITE BLOOD COUNT 5.3 x10^3/uL (4.8-10.8)
--- NOTE | 2022-12-30 14:25 | ED Physician Documentation ---
PD HPI CHEST PAIN - Stated complaint Stated Complaint: LIGHTHEADED - Chief complaint Chief Complaint: Cardiac - History obtained from History obtained from: Patient - Additional information Additional information: Patient is a 67-year-old male presenting for evaluation of chest pain that he states he has been having regularly for the last year and believes he has had this nearly every day. He has it as soon as he wakes up and it lasts all day long. He reports usually ignoring it. It is in the middle of the chest and it radiates to the right shoulder and is achy. Nothing makes it better or worse.He was at the walk-in clinic today for follow-up regarding recent carotid ultrasound. He has been having a work-up for vertigo and the carotid studies were done. Due to the reports of chest pain that they felt he required evaluation. Patient denies any cardiac history. He does not take any current medications. He did receive aspirin prior to arrival. He denies any fever, cough, difficulty breathing, back pain, abdominal pain, vomiting or diarrhea. Review of Systems Constitutional: denies: Fever Cardiac: reports: Chest pain / pressure Respiratory: denies: Dyspnea GI: denies: Abdominal Pain, Vomiting : denies: Dysuria Musculoskeletal: denies: Back pain Neurologic: denies: Headache PD PAST MEDICAL HISTORY - Past Medical History Past Medical History: Yes Cardiovascular: None Respiratory: None Neuro: None Endocrine/Autoimmune: None GI: GERD : Other HEENT: None Psych: Depression Musculoskeletal: None Derm: None - Past Surgical History Past Surgical History: Yes General: Cholecystectomy - Present Medications Home Medications: Ambulatory Orders Medication Instructions Recorded Confirmed Ondansetron Odt [Zofran] 4 mg TL Q6H PRN #10 tablet 05/01/20 Promethazine Supp [Phenergan Supp] 25 mg [place] Q6H PRN #25 supp 05/01/20 HYDROcod/ACETAM 5/325 [[place] 5/325] 1 tab PO BID PRN #5 tablet 11/13/21 - Allergies Allergies/Adverse Reactions: Allergies Allergy/AdvReac Type Severity Reaction Status Date / Time doxycycline Allergy Unknown Verified 12/30/22 13:26 Penicillins Allergy Unknown Verified 12/30/22 13:26 - Social History Does the pt smoke?: No Smoking Status: Never smoker Does the pt drink ETOH?: Yes Does the pt have substance abuse?: Yes - Immunizations Immunizations are current?: No Immunizations: TDAP >10years/unknown - POLST Patient has POLST: No PD ED PE NORMAL - General General: Alert and oriented X 3, No acute distress, Well developed/nourished - HEENT HEENT: Atraumatic - Neck Neck: Supple, no meningeal sign - Cardiac Cardiac: RRR, No murmur - Respiratory Respiratory: No respiratory distress, Clear bilaterally - Abdomen Abdomen: Soft, Non tender - Derm Derm: Warm and dry - Extremities Extremities: No edema, No calf tenderness / cord Results - Vitals Vitals: Vital Signs - 24 hr 12/30/22 12/30/22 13:20 13:48 Temperature 36.4 C L Heart Rate 85 80 Respiratory 20 19 Rate Blood Pressure 141/77 H 127/85 H O2 Saturation 99 99 Oxygen O2 Source Room air - EKG (time done) 1353 Rate: Rate (enter#) (72) Rhythm: NSR Ischemia: No: ST elevation c/w ischemia Compare to prior EKG: Unchanged from prior EKG (10/26/2018) - Labs Labs: Laboratory Tests 12/30/22 12/30/22 12/30/22 14:10 14:10 14:10 WBC 5.3 RBC 4.57 L Hgb 14.5 Hct 44.8 MCV 98.0 H MCH 31.7 H MCHC 32.4 RDW 13.2 Plt Count 200 MPV 10.1 Neut # (Auto) 3.2 Lymph # (Auto) 1.6 [place] # (Auto) 0.4 Eos # (Auto) 0.1 Baso # (Auto) 0.1 Absolute Nucleated RBC 0.00 Nucleated RBC % 0.0 Sodium 140 Potassium 3.9 Chloride 103 Carbon Dioxide 27 Anion Gap 10.0 BUN 13 Creatinine 0.7 Estimated GFR (MDRD) 112 Glucose 87 Calcium 9.1 Total Bilirubin 0.7 AST 34 ALT 25 Alkaline Phosphatase 61 Troponin I High Sens 3.2 Total Protein 7.5 Albumin 4.4 Globulin 3.1 Albumin/Globulin Ratio 1.4 Lipase 51 PD Medical Decision Making - ED course Complexity details: reviewed results, re-evaluated patient, d/w patient ED course: Patient presenting for evaluation of chest pain that he states has been ongoing for at least a year and has daily. The pain has not worsened today. Nothing makes it better or worse and there is no associated shortness of breath. His EKG is a normal sinus rhythm without signs of acute ischemia and appears unchanged from EKG in 2018. Labs are also reviewed including high-sensitivity troponin which is negative. His chest x-ray is clear. ACS seems unlikely given duration of symptoms for 1 year and negative troponin with reassuring EKG.PE and dissection also seem unlikely given the duration of his symptoms. Patient counseled on need for close follow-up with PCP. Patient counseled on concerning symptoms to return for. Departure - Departure Disposition: 01 Home, Self Care Clinical Impression: Chest pain Condition: Stable Instructions: ED Chest Pain Atypical Unkn Cause Comments: The exact cause of your Chest pain is unclear. I would recommend close follow- up with your primary care doctor. You may need further testing such as an ultrasound of your heart or a stress test.In the meanwhile please continue to take it easy and if your symptoms worsen in any way please consider return to the emergency department. Discharge Date/Time: 12/30/22 15:21
[2022-12-30 14:40] LABS: ALBUMIN 4.4 g/dL (3.2-5.5); ALBUMIN/GLOBULIN RATIO 1.4 (1.0-2.2); BILIRUBIN,TOTAL 0.7 mg/dL (0.2-1.0); CALCIUM 9.1 mg/dL (8.5-10.3); CREATININE 0.7 mg/dL (0.6-1.2); POTASSIUM 3.9 mmol/L (3.5-5.0); TOTAL PROTEIN 7.5 g/dL (6.7-8.2)
== END 2022-12-30 15:21 | disposition home or self-care (01) ==
LOC: EDUNIT# → ED 13:14
DX: R07.9 Chest pain, unspecified (principal)
CPT/HCPCS: 36415; 80053; 83690; 84484; 85025; 93005; 99284

== ENCOUNTER 2023-05-24 10:12 | Outpatient (CLI) | payer MEDICARE | END 2023-05-24 10:13 | disposition critical access hospital (66) | LOC: EMS 10:12 | DX: R11.2 Nausea with vomiting, unspecified (principal); R68.83 Chills (without fever); R19.7 Diarrhea, unspecified | CPT/HCPCS: A0425; A0427 ==

== ENCOUNTER 2023-06-18 07:27 | Outpatient (CLI) | payer MEDICARE | END 2023-06-18 07:28 | disposition critical access hospital (66) | LOC: EMS 07:27 | DX: R11.2 Nausea with vomiting, unspecified (principal); R10.84 Generalized abdominal pain | CPT/HCPCS: A0425; A0427 ==

== ENCOUNTER 2023-06-18 07:56 | Emergency (ER) | payer MEDICARE ==
--- NOTE | 2023-06-18 08:13 | ED Physician Documentation ---
History of Present Illness - Stated complaint Stated Complaint: NV - History obtained from History obtained from: Patient - History of Present Illness Pain level max: 8 Pain level now: 8 - Additonal information Additional information: Patient is a 67-year-old male who presents to the emergency department with abdominal pain since yesterday, diffuse, mainly across the lower abdomen. Started having nausea and vomiting yesterday. Similar symptoms about a month ago, emergency department work-up was negative at that time. He states he does not drink alcohol often, occasionally will use an edible marijuana gummy. He states has been unable to tolerate anything orally for the last 24 hours. He states Zofran does not work for him and he does better with Phenergan. He st ates he has not had any recent abdominal surgeries but did have a pelvic fracture when he was younger and had surgery for that. No fevers, has had chills. The pain is mainly periumbilical and lower. Review of Systems Constitutional: denies: Fever Ears: denies: Ear pain Nose: denies: Rhinorrhea / runny nose, Congestion GI: reports: Nausea, Vomiting, Constipation. denies: Diarrhea, Hematemesis : denies: Dysuria, Frequency, Hesitancy Skin: denies: Rash Musculoskeletal: denies: Neck pain, Back pain Neurologic: denies: Headache PD PAST MEDICAL HISTORY - Past Medical History Past Medical History: Yes Other Past Medical History: Psoriatic arthritis - Past Surgical History Past Surgical History: Yes Other past surgical history: Pelvic surgery - Present Medications Home Medications: Ambulatory Orders Medication Instructions Recorded Confirmed Ondansetron Odt [Zofran] 4 mg TL Q6H PRN #10 tablet 05/01/20 Promethazine Supp [Phenergan Supp] [address] Q6H PRN #25 supp 05/01/20 HYDROcod/ACETAM 5/325 [[place] 5/325] 1 tab PO BID PRN #5 tablet 11/13/21 HYDROcod/ACETAM 5/325 [[place] 5/325] 1 tablet PO Q6H PRN #14 tablet 05/24/23 Promethazine Supp [Phenergan Supp] [address] Q6HR PRN #15 supp 05/24/23 Promethazine Supp [Phenergan Supp] [address] Q6H PRN #20 supp 06/18/23 - Allergies Allergies/Adverse Reactions: Allergies Allergy/AdvReac Type Severity Reaction Status Date / Time doxycycline Allergy Unknown Verified 06/18/23 09:20 methotrexate Allergy Anxiety Verified 06/18/23 09:20 Penicillins Allergy Unknown Verified 06/18/23 09:20 prednisone Allergy Hallucinati Verified 06/18/23 09:20 ons abx Allergy Unknown Uncoded 06/18/23 09:20 - Social History Does the pt smoke?: No Does the pt drink ETOH?: No Does the pt have substance abuse?: Yes Substance Use and Type: Marijuana - Family History Family history: reports: Non contributory PD ED PE NORMAL - Vitals Vital signs reviewed: Yes - General General: Alert and oriented X 3, No acute distress - HEENT HEENT: PERRL, Moist mucous membranes - Neck Neck: Supple, no meningeal sign - Cardiac Cardiac: RRR, Strong equal pulses - Respiratory Respiratory: No respiratory distress, Clear bilaterally - Abdomen Abdomen: Soft, Non distended, Other (Diffusely tender to palpation across the lower abdomen. No rebound or guarding.) - Derm Derm: Warm and dry - Neuro Neuro: Alert and oriented X 3 - Psych Psych: Normal mood, Normal affect Results - Vitals Vitals: Vital Signs - 24 hr 06/18/23 06/18/23 06/18/23 08:00 08:14 10:25 Temperature 36.6 C Heart Rate 82 82 84 Respiratory 16 20 13 Rate Blood Pressure 167/81 H 155/81 H 144/128 H O2 Saturation 100 100 100 Oxygen O2 Source Room air - Labs Labs: Laboratory Tests 06/18/23 06/18/23 06/18/23 08:19 08:19 10:20 WBC 5.6 RBC 4.47 L Hgb 14.7 Hct 44.1 MCV 98.7 H MCH 32.9 H MCHC 33.3 RDW 13.1 Plt Count 165 MPV 10.8 Neut # (Auto) 4.6 Lymph # (Auto) 0.6 L [place] # (Auto) 0.3 Eos # (Auto) 0.0 Baso # (Auto) 0.0 Absolute Nucleated RBC 0.00 Nucleated RBC % 0.0 Sodium 134 L Potassium 4.4 Chloride 96 L Carbon Dioxide 18 L Anion Gap 20.0 H BUN 14 Creatinine 0.6 Estimated GFR (MDRD) 134 Glucose 66 L POC Whole Bld Glucose Calcium 9.7 Total Bilirubin 1.2 H AST 30 ALT 23 Alkaline Phosphatase 76 Total Protein 7.3 Albumin 4.6 Globulin 2.7 Albumin/Globulin Ratio 1.7 Lipase 34 Urine Color YELLOW Urine Clarity CLEAR Urine pH 6.5 Ur Specific [place] 1.020 Urine Protein NEGATIVE Urine Glucose (UA) NEGATIVE Urine Ketones 40 H Urine Occult Blood NEGATIVE Urine Nitrite NEGATIVE Urine Bilirubin NEGATIVE Urine Urobilinogen 0.2 (NORMAL) Ur Leukocyte Esterase NEGATIVE Ur Microscopic Review NOT INDICATED Urine Culture Comments NOT INDICATED 06/18/23 10:29 WBC RBC Hgb Hct MCV MCH MCHC RDW Plt Count MPV Neut # (Auto) Lymph # (Auto) [place] # (Auto) Eos # (Auto) Baso # (Auto) Absolute Nucleated RBC Nucleated RBC % Sodium Potassium Chloride Carbon Dioxide Anion Gap BUN Creatinine Estimated GFR (MDRD) Glucose POC Whole Bld Glucose 77 Calcium Total Bilirubin AST ALT Alkaline Phosphatase Total Protein Albumin Globulin Albumin/Globulin Ratio Lipase Urine Color Urine Clarity Urine pH Ur Specific [place] Urine Protein Urine Glucose (UA) Urine Ketones Urine Occult Blood Urine Nitrite Urine Bilirubin Urine Urobilinogen Ur Leukocyte Esterase Ur Microscopic Review Urine Culture Comments - Rads (name of study) CT abdomen pelvis Relevant Findings:: Final report received, See rad report PD Medical Decision Making - ED course Complexity details: reviewed results, re-evaluated patient, considered differential, d/w patient ED course: 67-year-old male presents to the emergency room with nausea and vomiting and abdominal pain. Nausea, vomiting and abdominal pain resolved in the emergency department with morphine, Phenergan and droperidol. Given IV fluids. Tolerating p.o. without difficulty. Noted to have urinary retention on CT scan, postvoid residual showed approximately 487 mL left in the bladder. We will have him follow-up with urology for this. He does not have any symptoms with this, likely chronic retention. Abdomen soft, nontender nondistended on serial exam. This been a chronic ongoing issue for the patient as well, recommend GI follow- up. Patient counseled regarding signs and symptoms for which I believe and urgent re-evaluation would be necessary. Patient with good understanding of and agreement to plan and is comfortable going home at this time This document was made in part using voice recognition software. While efforts are made to proofread this document, sound alike and grammatical errors may o ccur. Departure - Departure Disposition: Home, Self Care Clinical Impression: Urinary retention Nausea & vomiting Qualifiers: Vomiting type: unspecified Qualified Code(s): R11.2 - Nausea with vomiting, unspecified Instructions: ED Nausea Vomiting Follow-Up: your,doctor in 1 week [Other] Mario High MD [Provider Admit Priv/Credential] - Prescriptions: Promethazine Supp [Phenergan Supp] [address] Q6H PRN #20 supp PRN Reason: Nausea / Vomiting Comments: Your prescriptions were sent to [facility] in [place]. Use the medications as needed at home. Please follow-up with your doctor for further care. You also have urinary retention, this appears to be a chronic condition and but can cause issues of left unaddressed, would recommend that you follow-up with urology for further care. I included Dr. High's contact information on your paperwork today. Forms: PCP List Discharge Date/Time: 06/18/23 11:42
[2023-06-18 08:16] VITALS: O2SAT 100
[2023-06-18] MEDS ORDERED: DROPERIDOL 5 MG/2 ML VIAL IVP STA (08:17)
[2023-06-18] MEDS ORDERED: PROMETHAZINE INJ 25 MG in SODIUM CHLORIDE 0.9% 50 ML IV STA (08:17)
[2023-06-18] MEDS ORDERED: MORPHINE 2 MG/ML CARPUJECT IVP STA (08:18)
[2023-06-18 08:27] LABS: BASOPHILS % (AUTO) 0.7 %; EOSINOPHILS % (AUTO) 0.2 %; HCT - HEMATOCRIT 44.1 % (42.0-52.0); HGB - HEMOGLOBIN 14.7 g/dL (14.0-18.0); LYMPHOCYTES # (AUTO) 0.6 10^3/uL (1.5-3.5); LYMPHOCYTES % (AUTO) 10.8 %; MEAN CORPUSCULAR HEMOGLOBIN 32.9 pg (27.0-31.0); MEAN CORPUSCULAR HGB CONC 33.3 g/dL (32.0-36.0); MEAN CORPUSCULAR VOLUME 98.7 fL (80.0-94.0); MEAN PLATELET VOLUME 10.8 fL (7.4-11.4); MONOCYTES # (AUTO) 0.3 10^3/uL (0.0-1.0); MONOCYTES % (AUTO) 5.6 %; NEUTROPHILS # (AUTO) 4.6 10^3/uL (1.5-6.6); NEUTROPHILS % (AUTO) 82.3 %; PLT - PLATELET COUNT 165 10^3/uL (130-450); RED BLOOD COUNT 4.47 10^6/uL (4.70-6.10); RED CELL DISTRIBUTION WIDTH 13.1 % (12.0-15.0); WHITE BLOOD COUNT 5.6 x10^3/uL (4.8-10.8)
[2023-06-18] MEDS ORDERED: MORPHINE 2 MG/ML CARPUJECT ONE (08:33)
[2023-06-18] MEDS ORDERED: DROPERIDOL 5 MG/2 ML VIAL ONE (08:33)
[2023-06-18 08:48] LABS: ALBUMIN 4.6 g/dL (3.2-5.5)
[2023-06-18 08:49] LABS: ALBUMIN/GLOBULIN RATIO 1.7 (1.0-2.2); BILIRUBIN,TOTAL 1.2 mg/dL (0.2-1.0); CALCIUM 9.7 mg/dL (8.5-10.3); CREATININE 0.6 mg/dL (0.6-1.3); POTASSIUM 4.4 mmol/L (3.5-4.5); TOTAL PROTEIN 7.3 g/dL (6.4-8.9)
[2023-06-18] MEDS ORDERED: SODIUM CHLORIDE 0.9% 1,000 ML IV STA ×2 (09:32)
[2023-06-18 10:28] VITALS: BP 144/128
[2023-06-18 10:30] LABS: BILIRUBIN,URINE NEGATIVE (NEGATIVE); GLUCOSE, URINE (UA) NEGATIVE (NEGATIVE); KETONES,URINE (UA) 40 mg/dL (NEGATIVE); LEUKOCYTE ESTERASE, URINE NEGATIVE (NEGATIVE); NITRITE,URINE NEGATIVE (NEGATIVE); OCCULT BLOOD,URINE NEGATIVE (NEGATIVE); PH,URINE 6.5 PH (5.0-7.5); PROTEIN,URINE NEGATIVE (NEGATIVE); UROBILINOGEN,URINE 0.2 (NORMAL) E.U./dL (NORMAL)
--- NOTE | 2023-06-18 11:03 | CT Report ---
PROCEDURE: ABDOMEN/PELVIS WO INDICATIONS: diffuse abd pain, nausea/vomiting TECHNIQUE: A CT scan of the abdomen and pelvis was performed without the use of intravenous contrast. Images we re recorded and evaluated at appropriate window settings. Reformats: coronal and sagittal. For radiat ion dose reduction, the following was used: automated exposure control, adjustment of mA and/or kV ac cording to patient size. COMPARISON: CT abdomen and pelvis with contrast dated 05/24/2023.. FINDINGS: Image quality: Excellent. Lung bases and heart: Unremarkable. Liver: No solid mass. No significant hepatic steatosis. Gallbladder and biliary tree: Surgically absent. Spleen: Borderline splenomegaly, 13.4 cm. Pancreas: No pancreatic ductal dilation. Adrenals: No adrenal nodule. Kidneys and ureters: No hydronephrosis. No renal cystic lesion which requires follow up. No solid mas s. Bowel and peritoneum: No bowel distension. No pathologic free fluid. Mild diverticulosis. Lymph nodes: No central or retroperitoneal adenopathy. Vessels: No infrarenal aortic aneurysm. PELVIS Reproductive organs: Unremarkable. Bladder: Markedly distended bladder. Moderate enlargement of the prostate. No bladder wall thickening . No bladder stones or gas in the bladder. Pelvic lymph nodes: No pelvic adenopathy by size criteria. Bones: No aggressive osseous abnormality. Other: Small fat-containing left inguinal hernia. IMPRESSION: 1. Marked bladder distention without bladder wall thickening or gas in the bladder. Findings are cons istent with bladder outlet obstruction secondary to moderate prostate hypertrophy. 2. No acute abdominal process. 3. Very mild diffuse hepatic steatosis. Reviewed by: Syed Chau MD on 06/18/2023 11:02 AM PDT Approved by: Syed Chau MD on 06/18/2023 11:02 AM PDT Station ID: [id number]
[2023-06-18 11:13] LABS: CLARITY,URINE CLEAR (CLEAR)
== END 2023-06-18 11:42 | disposition home or self-care (01) ==
LOC: EDBD → ED 07:56 → MERGE 07:56 → ED 11:42
DX: R33.9 Retention of urine, unspecified (principal); R11.2 Nausea with vomiting, unspecified
CPT/HCPCS: 36415; 74176; 80053; 81003; 83690; 85025; 96365; 96375; 99283; 99284; J7040; 81001; 87086

== ENCOUNTER 2023-09-10 08:00 | Outpatient (CLI) | payer MEDICARE ==
--- NOTE | 2023-09-10 11:58 | XRAY Report ---
PROCEDURE: Shoulder 2 View RT INDICATIONS: PAIN IN RIGHT SHOULDER TECHNIQUE: 2 views of the shoulder were acquired. COMPARISON: None. FINDINGS: Bones: No fractures or dislocations. No suspicious bony lesions. Visualized ribs appear intact. Soft tissues: No suspicious soft tissue calcifications. The visualized lungs are within normal limi ts. IMPRESSION: No acute bony abnormality. Reviewed by: Giacomo Hinds on 09/10/2023 11:56 AM [facility] Approved by: Giacomo Hinds on 09/10/2023 11:56 AM [facility] Station ID: [id number]
--- NOTE | 2023-09-10 12:00 | XRAY Report ---
PROCEDURE: Wrist 3 View RT INDICATIONS: PAIN IN RIGHT WRIST TECHNIQUE: 3 views of the wrist were acquired. COMPARISON: None. FINDINGS: Bones: No fractures or dislocations. No suspicious bony lesions. Soft tissues: No suspicious soft tissue calcifications or masses. IMPRESSION: No acute bony abnormality. Reviewed by: Giacomo Hinds on 09/10/2023 11:59 AM [facility] Approved by: Giacomo Hinds on 09/10/2023 11:59 AM [facility] Station ID: [id number]
== END 2023-09-10 23:59 | disposition home or self-care (01) ==
LOC: DI.S 08:00 → MERGE 10:27 → DI.S 23:59
PROVIDERS: ATTEND Registered Nurse
DX: M25.531 Pain in right wrist (principal); M25.511 Pain in right shoulder

== ENCOUNTER 2023-09-18 08:00 | Outpatient (CLI) | payer MEDICARE ==
--- NOTE | 2023-09-18 14:18 | XRAY Report ---
PROCEDURE: Hand 3 View RT INDICATIONS: RIGHT THUMB PAIN TECHNIQUE: 3 views of the hand(s) acquired. COMPARISON: None. FINDINGS: Bones: No fractures or dislocations. Mild degenerative changes of the interphalangeal joints. No macdonald spicious bony lesions. Soft tissues: No suspicious soft tissue calcifications or masses. IMPRESSION: No acute bony abnormality. Degenerative changes of interphalangeal joints. Reviewed by: Sebastian Bowden MD on 09/18/2023 2:17 PM PST Approved by: Sebastian Bowden MD on 09/18/2023 2:17 PM PST Station ID: [id number]
--- NOTE | 2023-09-18 14:20 | XRAY Report ---
PROCEDURE: Wrist 4 View RT INDICATIONS: RIGHT WRIST PAIN TECHNIQUE: 4 views of the wrist were acquired. COMPARISON: None. FINDINGS: Bones: No fractures or dislocations. Decreased osseous mineralization. No suspicious bony lesions. Soft tissues: No suspicious soft tissue calcifications or masses. IMPRESSION: No acute bony abnormality. If pain persists with conservative management, consider repeat x-ray in 10 -14 days or cross-sectional imaging. Reviewed by: Sebastian Bowden MD on 09/18/2023 2:19 PM PST Approved by: Sebastian Bowden MD on 09/18/2023 2:19 PM PST Station ID: [id number]
== END 2023-09-18 23:59 | disposition home or self-care (01) ==
LOC: DI.WOS 08:00
PROVIDERS: ATTEND Physician Assistant Surgical
DX: S63.591A Other specified sprain of right wrist, initial encounter (principal); M19.041 Primary osteoarthritis, right hand

== ENCOUNTER 2023-11-15 08:54 | Outpatient (CLI) | payer MEDICARE | END 2023-11-15 08:55 | disposition critical access hospital (66) | LOC: EMS 08:54 | DX: R11.2 Nausea with vomiting, unspecified (principal) | CPT/HCPCS: A0425; A0427 ==

== ENCOUNTER 2023-11-15 09:23 | Emergency (ER) | payer MEDICARE ==
[2023-11-15] MEDS ORDERED: SODIUM CHLORIDE 0.9% 1,000 ML IV STA (09:29)
[2023-11-15] MEDS ORDERED: PROMETHAZINE INJ 25 MG in SODIUM CHLORIDE 0.9% 50 ML IV STA (09:29)
[2023-11-15] MEDS ORDERED: iohexoL-300 100 ML VIAL ONE (09:32)
[2023-11-15] MEDS ORDERED: METOCLOPRAMIDE 10 MG/2 ML VIAL IVP STA (09:34)
[2023-11-15 09:36] VITALS: O2SAT 98
[2023-11-15 10:01] LABS: BASOPHILS # (AUTO) 0.1 10^3/uL (0.0-0.1); EOSINOPHILS % (AUTO) 0.4 %; HCT - HEMATOCRIT 40.2 % (42.0-52.0); HGB - HEMOGLOBIN 13.4 g/dL (14.0-18.0); LYMPHOCYTES # (AUTO) 0.6 10^3/uL (1.5-3.5); LYMPHOCYTES % (AUTO) 12.2 %; MEAN CORPUSCULAR HEMOGLOBIN 33.8 pg (27.0-31.0); MEAN CORPUSCULAR HGB CONC 33.3 g/dL (32.0-36.0); MEAN CORPUSCULAR VOLUME 101.3 fL (80.0-94.0); MEAN PLATELET VOLUME 10.4 fL (7.4-11.4); MONOCYTES # (AUTO) 0.3 10^3/uL (0.0-1.0); MONOCYTES % (AUTO) 6.1 %; NEUTROPHILS # (AUTO) 3.9 10^3/uL (1.5-6.6); NEUTROPHILS % (AUTO) 80.1 %; PLT - PLATELET COUNT 173 10^3/uL (130-450); RED BLOOD COUNT 3.97 10^6/uL (4.70-6.10); RED CELL DISTRIBUTION WIDTH 12.8 % (12.0-15.0); WHITE BLOOD COUNT 4.9 x10^3/uL (4.8-10.8)
[2023-11-15] MEDS ORDERED: MORPHINE 2 MG/ML CARPUJECT IVP STA (10:07)
[2023-11-15 10:15] LABS: ALBUMIN/GLOBULIN RATIO 1.7 (1.0-2.2); BILIRUBIN,TOTAL 0.7 mg/dL (0.2-1.0); CALCIUM 8.7 mg/dL (8.5-10.3); CREATININE 0.6 mg/dL (0.6-1.3); MAGNESIUM 1.5 mg/dL (1.7-2.3); POTASSIUM 4.3 mmol/L (3.5-4.5); TOTAL PROTEIN 6.3 g/dL (6.4-8.9)
[2023-11-15] MEDS ORDERED: DROPERIDOL 5 MG/2 ML VIAL IVP STA (10:42)
--- NOTE | 2023-11-15 12:30 | CT Report ---
PROCEDURE: Abdomen/Pelvis W INDICATIONS: N/V/MIDEPIGASTRIC ABD PAIN CONTRAST: Omni 300 100ml TECHNIQUE: After the administration of intravenous contrast, a CT scan of the abdomen and pelvis was performed. Images were recorded and evaluated at appropriate window settings. Reformats: coronal and sagittal. F or radiation dose reduction, the following was used: automated exposure control, adjustment of mA and /or kV according to patient size. COMPARISON: None. FINDINGS: Image quality: Excellent. Lung bases and heart: Unremarkable. Liver: Hepatic steatosis. Small hepatic cyst. No concerning mass. Gallbladder and biliary tree: Surgically absent. No biliary dilation, accounting for post-cholecystec lachelle state. Spleen: No splenomegaly. Pancreas: No pancreatic ductal dilation. Adrenals: No adrenal nodule. Kidneys and ureters: No hydronephrosis. No renal cystic lesion which requires follow up. No solid mas s. Perinephric edema consistent with senescent changes. Bowel and peritoneum: No bowel distension. No pathologic free fluid. Diverticulosis without evidence of diverticulitis. Lymph nodes: No central or retroperitoneal adenopathy. Vessels: No infrarenal aortic aneurysm. PELVIS Reproductive organs: Unremarkable. Bladder: No abnormal wall thickening, accounting for underdistention. Pelvic lymph nodes: No pelvic adenopathy by size criteria. Bones: No aggressive osseous abnormality. Other: No significant ventral or inguinal hernia. IMPRESSION: No acute findings of the abdomen or pelvis to explain the patient's symptoms. Diverticulosis without evidence of acute diverticulitis Hepatic steatosis. Additional chronic findings as above. Reviewed by: Johnathon Snider MD on 11/15/2023 11:[address] [facility] Approved by: Johnathon Snider MD on 11/15/2023 11:[address] [facility] Station ID: [id number]
[2023-11-15] MEDS ORDERED: iohexoL-300 100 ML VIAL IVP ONE (12:36)
--- NOTE | 2023-11-15 12:36 | ED Physician Documentation ---
PD HPI NVD - Stated complaint Stated Complaint: VOMITING - Chief complaint Chief Complaint: Abd Pain - History obtained from History obtained from: Patient, EMS - Additonal information Additional information: 68-year-old male with no reported past medical history presents by EMS from home for nausea and vomiting since earlier this morning. Denies new or strange foods, denies known sick contacts. Patient was given 4 mg of IV Zofran and IV fluids were initiated by EMS prior to arrival. Patient has been seen in our ED several times prior, most recently in May and June 2023 for what appears to be nearly identical presentation. Review of Systems Constitutional: denies: Fever, Chills Throat: denies: Dental pain / toothache, Oral lesions / sores, Sore throat Cardiac: denies: Chest pain / pressure, Palpitations, Calf pain Respiratory: denies: Dyspnea, Cough, Wheezing GI: reports: Nausea, Vomiting. denies: Abdominal Swelling, Constipation, Diarrhea : denies: Dysuria, Frequency, Hesitancy, Unable to Void Skin: denies: Rash, Lesions, Abrasion (s) Musculoskeletal: denies: Neck pain, Back pain, Extremity pain PD PAST MEDICAL HISTORY - Past Medical History Cardiovascular: None Respiratory: None Neuro: None Endocrine/Autoimmune: None GI: GERD : Other HEENT: None Psych: Depression Musculoskeletal: None Derm: None - Past Surgical History Past Surgical History: Yes General: Cholecystectomy - Present Medications Home Medications: Ambulatory Orders Medication Instructions Recorded Confirmed Ondansetron Odt [Zofran] 4 mg TL Q6H PRN #30 tablet 11/15/23 Promethazine [Phenergan] 25 mg PO Q6H PRN #20 tab 11/15/23 - Allergies Allergies/Adverse Reactions: Allergies Allergy/AdvReac Type Severity Reaction Status Date / Time doxycycline Allergy Unknown Verified 09/11/23 11:41 ibuprofen Allergy Emesis Verified 11/15/23 10:31 methotrexate Allergy Anxiety Verified 09/11/23 11:41 Penicillins Allergy Unknown Verified 09/11/23 11:41 prednisone Allergy Hallucinati Verified 09/11/23 11:41 ons abx Allergy Unknown Uncoded 09/11/23 11:41 - Social History Does the pt smoke?: No Smoking Status: Never smoker Does the pt drink ETOH?: No Does the pt have substance abuse?: Yes - Immunizations Immunizations are current?: No Immunizations: TDAP >10years/unknown - POLST Patient has POLST: No PD ED PE NORMAL - Vitals Vital signs reviewed: Yes - General General: Alert and oriented X 3, No acute distress, Well developed/nourished - Cardiac Cardiac: RRR, Strong equal pulses - Respiratory Respiratory: No respiratory distress, Clear bilaterally - Abdomen Abdomen: Soft, Non distended, Other (diffuse tenderness to deep palpation, no rebound, no guarding) - Derm Derm: Normal color, Warm and dry, No rash - Extremities Extremities: No deformity, No tenderness to palpate, Normal ROM s pain, No edema - Neuro Neuro: Alert and oriented X 3, cleat blanker 2-12 intact, No motor deficit, Normal speech - Psych Psych: Normal mood, Normal affect Results - Vitals Vitals: Oxygen O2 Source Room air - Labs Labs: Laboratory Tests 11/15/23 11/15/23 09:56 09:56 WBC 4.9 RBC 3.97 L Hgb 13.4 L Hct 40.2 L MCV 101.3 H MCH 33.8 H MCHC 33.3 RDW 12.8 Plt Count 173 MPV 10.4 Neut # (Auto) 3.9 Lymph # (Auto) 0.6 L [place] # (Auto) 0.3 Eos # (Auto) 0.0 Baso # (Auto) 0.1 Absolute Nucleated RBC 0.00 Nucleated RBC % 0.0 Sodium 141 Potassium 4.3 Chloride 106 Carbon Dioxide 22 Anion Gap 13.0 BUN 8 Creatinine 0.6 Estimated GFR (MDRD) 134 Glucose 91 Calcium 8.7 Magnesium 1.5 L Total Bilirubin 0.7 AST 44 H ALT 34 Alkaline Phosphatase 84 Total Protein 6.3 L Albumin 4.0 Globulin 2.3 Albumin/Globulin Ratio 1.7 Lipase 60 PD Medical Decision Making - ED course Complexity details: reviewed old records, reviewed results, re-evaluated patien t, considered differential, d/w patient ED course: Nontoxic patient with nausea and vomiting. Abdomen soft but patient does have diffuse tenderness to deep palpation. Will order labs, CT. Patient continuing to complain of nausea. Phenergan is on backorder, so Reglan ordered for nausea. Patient continued to complain of nausea, now complaining of abdominal pain. Droperidol and morphine ordered for symptoms. CT imaging negative for acute findings. Patient able to tolerate PO. Patient was informed of lab and imaging results, will send home with antiemetics for sympto ms. Close PCP follow-up advised. Patient expressed understanding of plan and is in agreement this time. All questions answered at time of discharge. Departure - Departure Disposition: 01 Home, Self Care Clinical Impression: Nausea & vomiting Qualifiers: Vomiting type: unspecified Qualified Code(s): R11.2 - Nausea with vomiting, unspecified Condition: Stable Instructions: ED Diet Vomiting Diarrhea Prescriptions: Promethazine [Phenergan] 25 mg PO Q6H PRN #20 tab PRN Reason: Nausea / Vomiting Ondansetron Odt [Zofran] 4 mg TL Q6H PRN #30 tablet PRN Reason: Nausea / Vomiting Forms: PCP List Discharge Date/Time: 11/15/23 13:25
[2023-11-15 13:29] VITALS: BP 152/94
== END 2023-11-15 13:25 | disposition home or self-care (01) ==
LOC: EDUNIT# → ED 09:23
DX: R11.2 Nausea with vomiting, unspecified (principal); R10.84 Generalized abdominal pain
CPT/HCPCS: 36415; 74177; 80053; 83690; 83735; 85025; 93005; 96374; 96375; 99284; J2765; Q9967

== ENCOUNTER 2024-01-28 10:46 | Outpatient (CLI) | payer MEDICARE | END 2024-01-28 23:59 | disposition critical access hospital (66) | LOC: EMS 10:46 | DX: R07.89 Other chest pain (principal); R07.1 Chest pain on breathing; R11.2 Nausea with vomiting, unspecified | CPT/HCPCS: A0425; A0427 ==

== ENCOUNTER 2024-01-28 11:21 | Emergency (ER) | payer MEDICARE ==
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
--- NOTE | 2024-01-28 11:47 | XRAY Report ---
PROCEDURE: Chest 1V INDICATIONS: Chest pain TECHNIQUE: One view of the chest was acquired. COMPARISON: 12/30/2022 FINDINGS: Surgical changes and devices: None. Lungs and pleura: No pleural effusions or pneumothorax. Lungs are clear. Mediastinum: Mediastinal contours appear normal. Heart size is normal. Bones and chest wall: No suspicious bony lesions. Overlying soft tissues appear unremarkable. IMPRESSION: No acute cardiopulmonary process. Reviewed by: Emiliano Liriano MD on 01/28/2024 11:45 AM PDT Approved by: Emiliano Liriano MD on 01/28/2024 11:45 AM PDT Station ID: [id number]
[2024-01-28] MEDS: ONDANSETRON 4 MG/2 ML VIAL IVP STA ×2 (11:50→16:04)
[2024-01-28] MEDS: HYDROmorphone 1 MG/ML CARPUJECT IVP STA ×2 (11:50→12:37)
[2024-01-28] MEDS ORDERED: iohexoL-300 100 ML VIAL ONE (12:07)
[2024-01-28 12:11] LABS: BASOPHILS % (AUTO) 0.9 %; EOSINOPHILS % (AUTO) 0.6 %; HCT - HEMATOCRIT 43.7 % (42.0-52.0); HGB - HEMOGLOBIN 14.6 g/dL (14.0-18.0); LYMPHOCYTES # (AUTO) 0.6 10^3/uL (1.5-3.5); MEAN CORPUSCULAR HEMOGLOBIN 34.2 pg (27.0-31.0); MEAN CORPUSCULAR HGB CONC 33.4 g/dL (32.0-36.0); MEAN CORPUSCULAR VOLUME 102.3 fL (80.0-94.0); MEAN PLATELET VOLUME 10.3 fL (7.4-11.4); MONOCYTES # (AUTO) 0.3 10^3/uL (0.0-1.0); NEUTROPHILS # (AUTO) 3.7 10^3/uL (1.5-6.6); NEUTROPHILS % (AUTO) 80.3 %; PLT - PLATELET COUNT 144 10^3/uL (130-450); RED BLOOD COUNT 4.27 10^6/uL (4.70-6.10); RED CELL DISTRIBUTION WIDTH 13.6 % (12.0-15.0); WHITE BLOOD COUNT 4.7 x10^3/uL (4.8-10.8)
[2024-01-28 12:28] LABS: ALBUMIN 4.4 g/dL (3.2-5.5); ALBUMIN/GLOBULIN RATIO 1.8 (1.0-2.2); BILIRUBIN,TOTAL 1.2 mg/dL (0.2-1.0); CALCIUM 9.7 mg/dL (8.5-10.3); CREATININE 0.7 mg/dL (0.6-1.3); POTASSIUM 4.3 mmol/L (3.5-4.5); TOTAL PROTEIN 6.8 g/dL (6.4-8.9)
[2024-01-28 12:31] LABS: TROPONIN I HIGH SENSITIVITY 4.6 ng/L (2.3-19.7)
[2024-01-28] MEDS: LORazepam 2 MG/ML VIAL IVP STA (13:20)
[2024-01-28] MEDS: LIDOCAINE VISCOUS 2% 15 ML ORAL SYRINGE MM STA (14:37)
[2024-01-28] MEDS: MAG HYDROX/AL HYDROX/SIMETH 30 ML UDC PO STA (14:37)
[2024-01-28] MEDS: iohexoL-300 100 ML VIAL IVP ONE (14:37)
--- NOTE | 2024-01-28 15:16 | CT Report ---
PROCEDURE: Abdomen/Pelvis W INDICATIONS: IV only, left upper quadrant pain CONTRAST: See chart TECHNIQUE: After the administration of intravenous contrast, a CT scan of the abdomen and pelvis was performed. Images were recorded and evaluated at appropriate window settings. Reformats: coronal and sagittal. F or radiation dose reduction, the following was used: automated exposure control, adjustment of mA and /or kV according to patient size. COMPARISON: 11/15/2023. FINDINGS: Image quality: Diagnostic. Lower chest: Small hiatal hernia. Severe coronary artery calcifications. Normal heart size. No focal basilar pulmonary infiltrates. Liver: Moderate diffuse hepatic steatosis. No focal liver mass. Gallbladder and biliary tree: Surgically absent. No biliary dilation, accounting for post-cholecystec lachelle state. Spleen: No splenomegaly. Pancreas: No pancreatic ductal dilation. Adrenals: No adrenal nodule. Kidneys and ureters: No hydronephrosis. No renal cystic lesion which requires follow up. No solid mas s. Stomach, bowel and peritoneum: No bowel distension. No pathologic free fluid. Mild diverticulosis wit hout evidence of diverticulitis. Lipomatous ileocecal valve. Lymph nodes: No central or retroperitoneal adenopathy. Vessels: No infrarenal aortic aneurysm. PELVIS Reproductive organs: Mild to moderate enlargement of the prostate.. Bladder. Severely distended bladder with mild wall thickening and bladder wall trabeculations. Consid er neurogenic bladder. Pelvic lymph nodes: No pelvic adenopathy by size criteria. Bones: No aggressive osseous abnormality. Other: Small fat-containing left inguinal hernia. IMPRESSION: 1. Small hiatal hernia. 2. Moderate diffuse hepatic steatosis. 3. Moderate diffuse hepatic steatosis. 4. Mild diverticulosis without evidence of diverticulitis. 5. Severely distended bladder with wall thickening and wall trabeculations. Consider neurogenic bladd er. Also, consider bladder outlet obstruction. However, the prostate is only mildly to moderately enl arged. Reviewed by: Syed Chau MD on 01/28/2024 3:15 PM PDT Approved by: Syed Chau MD on 01/28/2024 3:15 PM PDT Station ID: [id number]
[2024-01-28 16:01] VITALS: BP 152/90; O2SAT 99
[2024-01-28] MEDS: ONDANSETRON ODT 4 MG TABLET TL STA (16:14)
== END 2024-01-28 16:15 | disposition home or self-care (01) ==
LOC: EDUNIT# → ED 11:21
DX: K29.00 Acute gastritis without bleeding (principal)
CPT/HCPCS: 36415; 71045; 74177; 80053; 83690; 84484; 85025; 93005; 96374; 96375; 96376; 99284; A9270; J1170; J2060; Q0162; Q9967

== ENCOUNTER 2024-04-09 16:08 | Outpatient (CLI) | payer MEDICARE | END 2024-04-09 23:59 | disposition critical access hospital (66) | LOC: EMS 16:08 | DX: R55 Syncope and collapse (principal); R63.8 Other symptoms and signs concerning food and fluid intake | CPT/HCPCS: A0425; A0427 ==

== ENCOUNTER 2024-04-09 16:36 | Emergency (ER) | payer MEDICARE ==
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
[2024-04-09] MEDS: ONDANSETRON 4 MG/2 ML VIAL IVP STA (16:51)
[2024-04-09] MEDS: HYDROmorphone 1 MG/ML CARPUJECT IVP STA ×2 (16:51→18:54)
[2024-04-09] MEDS: SODIUM CHLORIDE 0.9% 1,000 ML IV STA (17:04)
[2024-04-09] MEDS: LACTATED RINGERS 1,000 ML IV STA (17:06)
[2024-04-09 17:27] LABS: BASOPHILS # (AUTO) 0.1 10^3/uL (0.0-0.1); BASOPHILS % (AUTO) 1.7 %; EOSINOPHILS # (AUTO) 0.1 10^3/uL (0.0-0.7); EOSINOPHILS % (AUTO) 2.1 %; HCT - HEMATOCRIT 40.1 % (42.0-52.0); HGB - HEMOGLOBIN 13.1 g/dL (14.0-18.0); LYMPHOCYTES # (AUTO) 1.3 10^3/uL (1.5-3.5); LYMPHOCYTES % (AUTO) 30.4 %; MEAN CORPUSCULAR HEMOGLOBIN 34.5 pg (27.0-31.0); MEAN CORPUSCULAR HGB CONC 32.7 g/dL (32.0-36.0); MEAN CORPUSCULAR VOLUME 105.5 fL (80.0-94.0); MEAN PLATELET VOLUME 10.4 fL (7.4-11.4); MONOCYTES # (AUTO) 0.3 10^3/uL (0.0-1.0); MONOCYTES % (AUTO) 7.8 %; NEUTROPHILS # (AUTO) 2.4 10^3/uL (1.5-6.6); NEUTROPHILS % (AUTO) 57.8 %; PLT - PLATELET COUNT 198 10^3/uL (130-450); RED CELL DISTRIBUTION WIDTH 13.2 % (12.0-15.0); WHITE BLOOD COUNT 4.2 x10^3/uL (4.8-10.8)
[2024-04-09 17:41] LABS: ALBUMIN/GLOBULIN RATIO 2.1 (1.0-2.2); BILIRUBIN,TOTAL 0.7 mg/dL (0.2-1.0); CALCIUM 8.9 mg/dL (8.5-10.3); CREATININE 0.6 mg/dL (0.6-1.3); MAGNESIUM 1.8 mg/dL (1.7-2.3); POTASSIUM 4.4 mmol/L (3.5-4.5); TOTAL PROTEIN 5.9 g/dL (6.4-8.9)
--- NOTE | 2024-04-09 18:16 | XRAY Report ---
PROCEDURE: Sacrum/Coccyx INDICATIONS: sacrum inj TECHNIQUE: 2 views of the sacrum and coccyx acquired. COMPARISON: None. FINDINGS: Bones: No fractures or dislocations. No suspicious bony lesions. Chronic appearing diastases of the pubic symphysis. Soft tissues: Visualized bowel gas pattern is normal. No suspicious soft tissue densities. IMPRESSION: No acute bony abnormality identified on plain films. Reviewed by: Syed Chau MD on 04/09/2024 6:14 PM PDT Approved by: Syed Chau MD on 04/09/2024 6:14 PM PDT Station ID: [id number]
[2024-04-09 19:18] VITALS: BP 135/84; O2SAT 97
== END 2024-04-09 19:12 | disposition home or self-care (01) ==
LOC: EDUNIT# → ED 16:36
DX: R55 Syncope and collapse (principal); E86.0 Dehydration; S30.0XXA Contusion of lower back and pelvis, initial encounter; W19.XXXA Unspecified fall, initial encounter; Z79.899 Other long term (current) drug therapy
CPT/HCPCS: 36415; 72220; 80053; 83735; 85025; 93005; 96361; 96374; 96376; 99284; 99285; J1170; J7120

== ENCOUNTER 2024-04-14 11:23 | Outpatient (CLI) | payer MEDICARE | END 2024-04-14 23:59 | disposition critical access hospital (66) | LOC: EMS 11:23 | DX: M53.3 Sacrococcygeal disorders, not elsewhere classified (principal); S32.10XA Unspecified fracture of sacrum, initial encounter for closed fracture; Z91.81 History of falling | CPT/HCPCS: A0425; A0427 ==

== ENCOUNTER 2024-04-14 11:50 | Emergency (ER) | payer MEDICARE ==
[2024-04-14] MEDS: HYDROmorphone 1 MG/ML CARPUJECT IVP STA (12:23)
--- NOTE | 2024-04-14 13:27 | CT Report ---
PROCEDURE: Lumbar Spine WO INDICATIONS: lower back/saccrum pain after fall TECHNIQUE: Noncontrast 3 mm thick sections acquired from the T12 level to the sacrum. Sagittal and coronal refo rmats were constructed. For radiation dose reduction, the following was used: automated exposure co ntrol, adjustment of mA and/or kV according to patient size. COMPARISON: None. FINDINGS: Image quality: Excellent. Bones: There is normal bony alignment. No acute vertebral body compression fractures. Question very subtle sacral insufficiency fractures bilaterally with a horizontal component through S1. No suspici ous lytic or blastic bony lesions. Central spinal caliber is of normal overall caliber. No pars def ects. T12-L1: Normal in appearance. L1-L2: Normal in appearance. L2-L3: Normal in appearance. L3-L4: Facet hypertrophy. Disc bulge. Mild canal stenosis. L4-L5: Facet hypertrophy. Disc bulge, mild canal stenosis.. L5-S1: Normal in appearance. Soft tissues: No retroperitoneal masses or hematomas. Visualized aorta is normal in caliber. Marke dly distended bladder. Mild prostate enlargement. Prostate is incompletely imaged. IMPRESSION: 1. Question of very subtle bilateral sacral insufficiency fractures with S1 horizontal component. 2. Mild canal stenosis at L3-L4 and L4-L5. 3. Marked distention of the bladder. Comment: Consider lumbar spine MRI for confirmation of sacral insufficiency fractures. Reviewed by: Syed Chau MD on 04/14/2024 1:25 PM PDT Approved by: Syed Chau MD on 04/14/2024 1:25 PM PDT Station ID: [id number]
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
[2024-04-14] MEDS: oxyCODONE 5 MG TABLET PO STA (13:59)
[2024-04-14 14:34] VITALS: BP 146/80; O2SAT 96
== END 2024-04-14 14:43 | disposition home or self-care (01) ==
LOC: EDUNIT# → ED 11:50
DX: S32.10XA Unspecified fracture of sacrum, initial encounter for closed fracture (principal); W19.XXXA Unspecified fall, initial encounter; Z79.899 Other long term (current) drug therapy
CPT/HCPCS: 51798; 72131; 99283; A9270; J1170

== ENCOUNTER 2024-04-22 10:15 | Outpatient (CLI) | payer MEDICARE | END 2024-04-22 23:59 | disposition critical access hospital (66) | LOC: EMS 10:15 | DX: S32.2XXD Fracture of coccyx, subsequent encounter for fracture with routine healing (principal); W19.XXXD Unspecified fall, subsequent encounter | CPT/HCPCS: A0425; A0427 ==

== ENCOUNTER 2024-04-22 10:42 | Emergency (ER) | payer MEDICARE ==
--- NOTE | 2024-04-22 10:50 | ED Physician Documentation ---
PD HPI BACK PAIN - Stated complaint Stated Complaint: TAILBONE PX - History obtained from History obtained from: Patient, EMS - History of Present Illness Timing - onset: How many weeks ago (2) Timing - duration: Weeks (2) Timing - details: Abrupt onset, Still present (had fallen and had sacral fracture about 2 weeks ago, Rx with hydrocodone with some improvement but only small scripts, and had not been able to get appt with PMD until May. Unable to get more med refill, and the pain meds only moderate help. Continued pain, worse with movement.) Location: Lower (sacral area pain with movement and even at rest.) Quality: Pain, Spasm, Aching Associated symptoms: No: Fever, Weakness, Numbness, Incontinent of urine Improves with: Rest. No: Meds (moderate improvement with pain meds but only got small Rx.) Worsened by: Movement Contributing factors: Trauma (sacral fracture 2 weeks ago. Still hurting a lot.) Review of Systems Constitutional: denies: Fever, Chills Skin: denies: Rash, Lesions PD PAST MEDICAL HISTORY - Past Medical History Cardiovascular: None Respiratory: None Neuro: None Endocrine/Autoimmune: None GI: GERD : Other HEENT: None Psych: Depression Musculoskeletal: None Derm: None - Past Surgical History Past Surgical History: Yes General: Cholecystectomy - Present Medications Home Medications: Ambulatory Orders Medication Instructions Recorded Confirmed Docusate Sodium 100Mg Capsule 100 mg PO DAILY #20 cap 04/22/24 [Colace 100Mg Capsule] Gabapentin [Neurontin] 100 mg PO BID 15 Days #30 cap 04/22/24 HYDROcodone/ACET 7.5/325 [[place] 1 each PO Q6H PRN #15 tablet 04/22/24 7.5/325] Meloxicam [Mobic] 7.5 mg PO BID 10 Days #20 tablet 04/22/24 Omeprazole 20 mg PO DAILY 04/22/24 04/22/24 fentaNYL 12 MCG PATCH [Duragesic 12 mcg TOP Q3D #2 patch 04/22/24 12mcg patch] - Allergies Allergies/Adverse Reactions: Allergies Allergy/AdvReac Type Severity Reaction Status Date / Time doxycycline Allergy Unknown Verified 04/22/24 10:57 ibuprofen Allergy Emesis Verified 04/22/24 10:57 methotrexate Allergy Anxiety Verified 04/22/24 10:57 Penicillins Allergy Unknown Verified 04/22/24 10:57 prednisone Allergy Hallucinati Verified 04/22/24 10:57 ons abx Allergy Unknown Uncoded 04/22/24 10:57 - Social History Does the pt smoke?: No Smoking Status: Never smoker Does the pt drink ETOH?: No Does the pt have substance abuse?: Yes - Immunizations Immunizations are current?: No Immunizations: TDAP >10years/unknown - POLST Patient has POLST: No PD ED PE NORMAL - Vitals Vital signs reviewed: Yes - General General: Alert and oriented X 3, Well developed/nourished - Derm Derm: Normal color, Warm and dry - Neuro Neuro: Alert and oriented X 3, No motor deficit, No sensory deficit, Normal speech Results - Vitals Vitals: Vital Signs - 24 hr 04/22/24 04/22/24 10:51 14:54 Temperature 36.6 C Heart Rate 87 73 Respiratory 20 20 Rate Blood Pressure 148/90 H 136/72 H O2 Saturation 99 100 Oxygen O2 Source Room air PD Medical Decision Making - ED course Complexity details: reviewed old records (orior ED visits seen. Review pharmacy list and pt had not gotten pain meds elsewhere:hydrocodone 15 tabs on 04/09 and oxycodone 14 tabs on 04/14.), reviewed results, considered differential (The patient had a sacral fracture diagnosed by CT recently. He had been prescribed hydrocodone and then oxycodone. These did provide moderate improvement in his pain but wore off of course. He ran out due to the size of the prescription and unable to get into his primary care till next week.), d/w patient ED course: Given the continuous pain that he has, I feel a baseline level of pain medicine would be appropriate with as needed on top. I ordered a fentanyl patch at 25 mcg but in discussion with the pharmacist here, we down graded to 12 mcg patch so as to not over dose. In addition to this a regular dosing of anti-inflammatory would be appropriate. Given a lot of nerve plexuses in the pelvis, he likely would also benefit from some gabapentin 2 or 3 times daily over the next week or 2. Add Tylenol 4 times daily. I will prescribe some more pain medicines to use periodically on top but hopefully he will have less peak and trough pain from the short acting opiates. Departure - Departure Disposition: 01 Home, Self Care Clinical Impression: Sacral back pain Sacral fracture, closed Qualifiers: Encounter type: subsequent encounter Zone of sacrum fracture: unspecified portion of sacrum Fracture healing: with routine healing Qualified Code(s): S32.10XD - Unspecified fracture of sacrum, subsequent encounter for fracture with routine healing Condition: Stable Record reviewed to determine appropriate education?: Yes Prescriptions: Docusate Sodium 100Mg Capsule [Colace 100Mg Capsule] 100 mg PO DAILY #20 cap fentaNYL 12 MCG PATCH [Duragesic 12mcg patch] 12 mcg TOP Q3D #2 patch Meloxicam [Mobic] 7.5 mg PO BID 10 Days #20 tablet Gabapentin [Neurontin] 100 mg PO BID 15 Days #30 cap HYDROcodone/ACET 7.5/325 [[place] 7.5/325] 1 each PO Q6H PRN #15 tablet PRN Reason: Pain 5-7 Comments: Given the continuous nests of your pain, I believe you will benefit from a long- acting pain medicine. We supplied you with a fentanyl/Duragesic patch at the lowest dose. This remains on for 3 days. It can then be changed to another patch after that. I prescribed 2 more. In addition I would suggest some regular anti-inflammatories in the short-term, the next week and a half or so. Meloxicam twice daily with food. To that add acetaminophen/Tylenol 500 to 650 mg 4 times daily. Add short acting and pain medicine hydrocodone every 6 hours if needed for pain. Hopefully this will be less frequent need given the consistent pain medicine from the patch. There are a lot of nerve bundles in the pelvis so pelvic injuries can often benefit from a nerve pain type medicine. I would suggest gabapentin 100 mg twice daily for the next couple of weeks. The fracture pain should be improving a fair amount over the next couple of weeks as the bone heals more firmly. Follow-up with your primary care or walk-in clinic or such if not improving well sufficiently over the next several days to week or so. Return to the ER if needed. I sent your prescriptions to your preferred pharmacy. I am prescribing a short course of narcotic pain medication for you. These are potentially dangerous and addictive medications that should be used carefully. These medications may constipate you. Take an [id number] stool softener such as docusate twice daily with plenty of water while taking these medications. If you go 24 hours without a bowel movement, take vjsg-bhy-bydqubb MiraLAX, per package instructions. Do not drink or drive while taking these medications. If you received narcotic or sedating medications while in the emergency department do not drive for 24 hours. Store this medication in a safe, secure place and out of reach of children. It is a violation of federal law to give or sell this medication to another person or to use in a manner other than prescribed. The ED will not refill narcotic prescriptions, including prescriptions lost or stolen. You can dispose of unwanted medications at the [facility]'s office or at several pharmacies such as [facility]. It would be prudent to do a stool softener daily as well. Discharge Date/Time: 04/22/24 14:56
[2024-04-22] MEDS: KETOROLAC 15 MG/ML VIAL IVP STA (11:52)
[2024-04-22] MEDS: GABAPENTIN 100 MG CAPSULE PO STA (11:52)
[2024-04-22] MEDS: HYDROmorphone 1 MG/ML CARPUJECT IVP STA ×2 (11:53→13:49)
[2024-04-22] MEDS: ACETAMINOPHEN 500 MG TABLET PO STA (13:49)
[2024-04-22] MEDS: fentaNYL 25 MCG PATCH TOP STA (13:50)
[2024-04-22] MEDS: fentaNYL 12 MCG PATCH TOP STA (13:58)
[2024-04-22 15:08] VITALS: BP 136/72; O2SAT 100
== END 2024-04-22 14:56 | disposition home or self-care (01) ==
LOC: EDUNIT# → ED 10:42
DX: S32.10XD Unspecified fracture of sacrum, subsequent encounter for fracture with routine healing (principal); W19.XXXD Unspecified fall, subsequent encounter
CPT/HCPCS: 96374; 96375; 96376; 99283; A9270; J1170

== ENCOUNTER 2024-05-20 21:53 | Outpatient (CLI) | payer MEDICARE | END 2024-05-20 23:59 | disposition critical access hospital (66) | LOC: EMS 21:53 | DX: R55 Syncope and collapse (principal); K46.9 Unspecified abdominal hernia without obstruction or gangrene | CPT/HCPCS: A0425; A0427 ==

== ENCOUNTER 2024-05-20 22:21 | Inpatient (IN) | payer MEDICARE ==
--- NOTE | 2024-05-20 22:28 | ED Physician Documentation ---
History of Present Illness - Stated complaint Stated Complaint: SYNCOPE - History obtained from History obtained from: Patient, EMS - Additonal information Additional information: 68-year-old man with history of alcohol abuse, chronic hernia pain, presents with 2 syncopal episodes that were unwitnessed over the past couple of days. he also has had decreased p.o. intake. EMS reports that he took tramadol and drank alcohol this evening. PD PAST MEDICAL HISTORY - Past Medical History Cardiovascular: None Respiratory: None Neuro: None Endocrine/Autoimmune: None GI: GERD : Other HEENT: None Psych: Depression Musculoskeletal: None Derm: None - Past Surgical History Past Surgical History: Yes General: Cholecystectomy - Present Medications Home Medications: Ambulatory Orders Medication Instructions Recorded Confirmed Docusate Sodium 100Mg Capsule 100 mg PO DAILY #20 cap 04/22/24 [Colace 100Mg Capsule] Gabapentin [Neurontin] 100 mg PO BID 15 Days #30 cap 04/22/24 HYDROcodone/ACET 7.5/325 [[place] 1 each PO Q6H PRN #15 tablet 04/22/24 7.5/325] Meloxicam [Mobic] 7.5 mg PO BID 10 Days #20 tablet 04/22/24 Omeprazole 20 mg PO DAILY 04/22/24 04/22/24 fentaNYL 12 MCG PATCH [Duragesic 12 mcg TOP Q3D #2 patch 04/22/24 12mcg patch] - Allergies Allergies/Adverse Reactions: Allergies Allergy/AdvReac Type Severity Reaction Status Date / Time doxycycline Allergy Unknown Verified 05/20/24 22:32 ibuprofen Allergy Emesis Verified 05/20/24 22:32 methotrexate Allergy Anxiety Verified 05/20/24 22:32 Penicillins Allergy Unknown Verified 05/20/24 22:32 prednisone Allergy Hallucinati Verified 05/20/24 22:32 ons abx Allergy Unknown Uncoded 05/20/24 22:32 - Social History Does the pt smoke?: No Smoking Status: Never smoker Does the pt drink ETOH?: No Does the pt have substance abuse?: Yes - Immunizations Immunizations are current?: No Immunizations: TDAP >10years/unknown - POLST Patient has POLST: No PD ED PE NORMAL - Vitals Vital signs reviewed: Yes - General General: Alert and oriented X 3, No acute distress, Well developed/nourished - HEENT HEENT: Atraumatic, PERRL, EOMI - Neck Neck: Supple, no meningeal sign - Cardiac Cardiac: RRR - Respiratory Respiratory: No respiratory distress, Clear bilaterally - Abdomen Abdomen: Non tender, Non distended - Derm Derm: Normal color, Warm and dry - Extremities Extremities: No deformity - Neuro Neuro: Alert and oriented X 3, clam shucker 2-12 intact, No motor deficit, No sensory deficit Eye Opening: Spontaneous Motor: Obeys Commands Verbal: Oriented GCS Score: 15 - Psych Psych: Other (Clinically intoxicated) Results - Vitals Vitals: Vital Signs - 24 hr 05/20/24 05/20/24 05/21/24 22:28 22:32 00:31 Temperature 36.2 C L Heart Rate 75 76 75 Respiratory 18 16 Rate Blood Pressure 128/82 H 117/74 O2 Saturation 97 98 05/21/24 05/21/24 05/21/24 01:57 04:00 05:11 Temperature Heart Rate 88 82 74 Respiratory 16 16 16 Rate Blood Pressure 114/81 H 110/76 138/88 H O2 Saturation 100 98 97 Oxygen O2 Source Room air - EKG (time done) 2226 EKG releavant findings:: EKG personally interpreted by author of this note. Relevant findings are: Rate: Rate (enter#) (73) Rhythm: NSR [place]: Normal Ischemia: Other (old ischemic changes) - Labs Labs: Laboratory Tests 05/20/24 05/20/24 05/21/24 22:28 22:28 00:31 WBC 4.0 L RBC 3.96 L Hgb 13.4 L Hct 40.2 L MCV 101.5 H MCH 33.8 H MCHC 33.3 RDW 12.9 Plt Count 159 MPV 10.3 Neut # (Auto) 1.3 L Lymph # (Auto) 2.3 Al[place] # (Auto) 0.3 Eos # (Auto) 0.1 Baso # (Auto) 0.0 Absolute Nucleated RBC 0.00 Nucleated RBC % 0.0 Sodium 138 Potassium 4.3 Chloride 103 Carbon Dioxide 28 Anion Gap 7.0 BUN 9 Creatinine 0.6 Estimated GFR (MDRD) 134 Glucose 90 Calcium 8.7 Total Bilirubin 0.5 AST 28 ALT 16 Alkaline Phosphatase 67 Total Protein 6.5 Albumin 4.0 Globulin 2.5 Albumin/Globulin Ratio 1.6 Lipase 58 Urine Opiates Screen NEGATIVE Ur Buprenorphine Scrn NEGATIVE Ur Oxycodone Screen NEGATIVE Urine Methadone Screen NEGATIVE Ur Barbiturates Screen NEGATIVE Ur Tricyclics Screen NEGATIVE Ur Phencyclidine Scrn NEGATIVE Ur Amphetamine Screen NEGATIVE U Methamphetamines Scrn NEGATIVE U Benzodiazepines Scrn NEGATIVE Urine Cocaine Screen NEGATIVE U Cannabinoids Screen POSITIVE H Ur Drug Screen Comment CUTOFF CONC BELOW: Ethyl Alcohol 376.5 PD Medical Decision Making - ED course ED course: 68-year-old man presents with multiple syncopal episodes over the past 48 hours along with alcohol use in addition to his tramadol pain medication. Plan to undergo workup including labs, cardiac monitoring, EKG and then reevaluate. Unremarkable cardiac monitoring and workup aside from significantly elevated alcohol level. patient is intoxicated and may stay here until clinically sober vs dc home with reliable family member or friend. Note patient clinically sober at 6am, ambulatory without difficulty. return precautions given. plan to f/u with pcp for further management. May benefit from outpatient echocardiogram, zio monitoring, and further cardiac evaluation. Alcohol cessation counseling provided. Departure - Departure Disposition: 01 Home, Self Care Clinical Impression: Alcohol abuse, Syncope, Decreased appetite Condition: Stable Instructions: Syncope, Addiction Alcohol Comments: You are seen in the emergency department for fainting episode and for alcohol intoxication. Please follow-up with your primary care provider for further evaluation since you may benefit from an outpatient echocardiogram and cardiology Referral. Outpatient heart monitoring can be done as well for patients with Multiple fainting episodes. Return to the emergency department if you have new or worsening symptoms or other concerns. Please consider cutting back on the amount of alcohol you are drinking because this is significantly affecting your health.
[2024-05-20] MEDS: SODIUM CHLORIDE 0.9% 1,000 ML IV STA (22:38)
[2024-05-20 22:40] LABS: EOSINOPHILS # (AUTO) 0.1 10^3/uL (0.0-0.7); EOSINOPHILS % (AUTO) 3.3 %; HCT - HEMATOCRIT 40.2 % (42.0-52.0); HGB - HEMOGLOBIN 13.4 g/dL (14.0-18.0); LYMPHOCYTES # (AUTO) 2.3 10^3/uL (1.5-3.5); LYMPHOCYTES % (AUTO) 56.7 %; MEAN CORPUSCULAR HEMOGLOBIN 33.8 pg (27.0-31.0); MEAN CORPUSCULAR HGB CONC 33.3 g/dL (32.0-36.0); MEAN CORPUSCULAR VOLUME 101.5 fL (80.0-94.0); MEAN PLATELET VOLUME 10.3 fL (7.4-11.4); MONOCYTES # (AUTO) 0.3 10^3/uL (0.0-1.0); MONOCYTES % (AUTO) 6.5 %; NEUTROPHILS # (AUTO) 1.3 10^3/uL (1.5-6.6); NEUTROPHILS % (AUTO) 32.2 %; PLT - PLATELET COUNT 159 10^3/uL (130-450); RED BLOOD COUNT 3.96 10^6/uL (4.70-6.10); RED CELL DISTRIBUTION WIDTH 12.9 % (12.0-15.0)
[2024-05-20 22:56] LABS: ALBUMIN/GLOBULIN RATIO 1.6 (1.0-2.2); BILIRUBIN,TOTAL 0.5 mg/dL (0.2-1.0); CALCIUM 8.7 mg/dL (8.5-10.3); CREATININE 0.6 mg/dL (0.6-1.3); ETOH - ETHANOL 376.5 mg/dL; POTASSIUM 4.3 mmol/L (3.5-4.5); TOTAL PROTEIN 6.5 g/dL (6.4-8.9)
[2024-05-20] MEDS: HYDROmorphone 0.5 MG/0.5 ML SYRINGE IVP STA (23:31)
[2024-05-21 00:50] LABS: AMPHETAMINE SCREEN,URINE NEGATIVE (NEGATIVE); BARBITURATE SCREEN,UR NEGATIVE (NEGATIVE); BENZODIAZEPINES SCREEN, URINE NEGATIVE (NEGATIVE); BUPRENORPHINE SCREEN, URINE NEGATIVE (NEGATIVE); COCAINE SCREEN URINE NEGATIVE (NEGATIVE); METHADONE SCREEN, URINE NEGATIVE (NEGATIVE); METHAMPHETAMINES SCREEN, URINE NEGATIVE (NEGATIVE); OPIATE SCREEN, URINE NEGATIVE (NEGATIVE); OXYCODONE SCREEN, URINE NEGATIVE (NEGATIVE); TRICYCLIC ANTIDEPRESSANT,URINE NEGATIVE (NEGATIVE)
[2024-05-21 00:51] LABS: THC CANNABINOID SCREEN, URINE POSITIVE (NEGATIVE)
--- NOTE | 2024-05-21 01:31 | XRAY Report ---
PROCEDURE: Chest 1V INDICATIONS: Chest Pain TECHNIQUE: One view of the chest was acquired. COMPARISON: None. FINDINGS: Surgical changes and devices: None. Lungs and pleura: No pleural effusions or pneumothorax. Lungs are clear. Mediastinum: Mediastinal contours appear normal. Heart size is minimally prominent. Bones and chest wall: No suspicious bony lesions. Overlying soft tissues appear unremarkable. IMPRESSION: No acute cardiopulmonary process. The above findings are concordant with preliminary report. Reviewed by: Andreia Palmer MD on 05/21/2024 1:29 AM PDT Approved by: Andreia Palmer MD on 05/21/2024 1:29 AM PDT Station ID: [id number]
[2024-05-21] MEDS: HYDROmorphone 0.5 MG/0.5 ML SYRINGE IVP STA (05:23)
[2024-05-21] MEDS: MORPHINE 2 MG/ML CARPUJECT IVP STA (05:30)
[2024-05-21] MEDS: LORazepam 1 MG TABLET PO STA (06:48)
[2024-05-21 09:00] LABS: BASOPHILS % (AUTO) 0.9 %; EOSINOPHILS # (AUTO) 0.1 10^3/uL (0.0-0.7); EOSINOPHILS % (AUTO) 2.3 %; HCT - HEMATOCRIT 42.3 % (42.0-52.0); HGB - HEMOGLOBIN 13.5 g/dL (14.0-18.0); LYMPHOCYTES # (AUTO) 1.1 10^3/uL (1.5-3.5); LYMPHOCYTES % (AUTO) 26.2 %; MEAN CORPUSCULAR HEMOGLOBIN 33.7 pg (27.0-31.0); MEAN CORPUSCULAR HGB CONC 31.9 g/dL (32.0-36.0); MEAN CORPUSCULAR VOLUME 105.5 fL (80.0-94.0); MEAN PLATELET VOLUME 10.6 fL (7.4-11.4); MONOCYTES # (AUTO) 0.3 10^3/uL (0.0-1.0); MONOCYTES % (AUTO) 6.8 %; NEUTROPHILS # (AUTO) 2.7 10^3/uL (1.5-6.6); NEUTROPHILS % (AUTO) 63.6 %; PLT - PLATELET COUNT 144 10^3/uL (130-450); RED BLOOD COUNT 4.01 10^6/uL (4.70-6.10); RED CELL DISTRIBUTION WIDTH 13.2 % (12.0-15.0); WHITE BLOOD COUNT 4.3 x10^3/uL (4.8-10.8)
[2024-05-21] MEDS ORDERED: traMADol 50 MG TABLET PO PRN (09:00)
[2024-05-21 09:04] LABS: INR 1.1 (0.8-1.2); PT - PROTHROMBIN TIME 12.6 secs (9.9-12.6)
[2024-05-21 09:15] LABS: ALBUMIN/GLOBULIN RATIO 1.7 (1.0-2.2); BILIRUBIN,TOTAL 0.6 mg/dL (0.2-1.0); CALCIUM 8.9 mg/dL (8.5-10.3); CREATININE 0.5 mg/dL (0.6-1.3); TOTAL PROTEIN 6.4 g/dL (6.4-8.9)
[2024-05-21] MEDS: DOCUSATE SODIUM 100 MG CAPSULE PO SCH (09:54)
[2024-05-21] MEDS: HYDROcod/ACETAM 5/325 MG TABLET PO PRN (09:54)
[2024-05-21] MEDS: THIAMINE 100 MG TABLET PO SCH (09:55)
[2024-05-21] MEDS: GABAPENTIN 300 MG CAPSULE PO SCH (09:55)
[2024-05-21] MEDS: MELOXICAM 7.5 MG TABLET PO SCH (09:55)
[2024-05-21] MEDS: ENOXAPARIN 40 MG/0.4 ML SYRINGE SUBQ SCH (09:56)
[2024-05-21] MEDS: ACETAMINOPHEN 1,000 MG/100 ML 1,000 MG/100 ML BAG IV PRN (10:50)
--- NOTE | 2024-05-21 11:22 | HISTORY & PHYSICAL EXAMINATION ---
Chief Complaint - Chief Complaint Chief Complaint: Syncope History of Present Illness - Admitted From Admitted From:: ED - History of Present Illness HPI Comment/Other: The patient is a pleasant 68 year old male. He has a past mendical history significant for a hiatal hernia, currently going through outpatient process of getting set up for surgical repair. In addition the patient has a history of significant PTSD. He has a history of alcohol abuse. He had a fall last month and injured his lower back and coccyx. He says he has 2 fractures in the coccyx. Since then he has had terrible pain. Yesterday he says he stood up and passed out and fell. He is having even worse pain now. Work up in the ED revealed an alcohol level History - Past Medical History Cardiovascular: reports: None Respiratory: reports: None Neuro: reports: None Endocrine/Autoimmune: reports: None GI: reports: GERD : reports: Other HEENT: reports: None Psych: reports: Depression Musculoskeletal: reports: None Derm: reports: None MRSA Hx?: No - Past Surgical History General: reports: Cholecystectomy - POLST Patient has POLST: No Meds/Allgy - Home Medications Home Medications: Ambulatory Orders Medication Instructions Recorded Confirmed Docusate Sodium 100Mg Capsule 100 mg PO DAILY #20 cap 04/22/24 05/21/24 [Colace 100Mg Capsule] Gabapentin [Neurontin] 100 mg PO BID 15 Days #30 cap 04/22/24 05/21/24 Meloxicam [Mobic] 7.5 mg PO BID 10 Days #20 tablet 04/22/24 05/21/24 Omeprazole 20 mg PO DAILY 04/22/24 05/21/24 Ondansetron HCl 4 mg PO Q8H PRN 05/21/24 05/21/24 Prazosin [Minipress] 4 - 6 mg PO QPM PRN 05/21/24 05/21/24 Promethazine [Phenergan] 12.5 mg PO Q6H PRN 05/21/24 05/21/24 traMADol [Ultram] 50 mg PO Q4-6H PRN 05/21/24 05/21/24 - Allergies Allergies/Adverse Reactions: Allergies Allergy/AdvReac Type Severity Reaction Status Date / Time doxycycline Allergy Unknown Verified 05/20/24 22:32 ibuprofen Allergy Emesis Verified 05/20/24 22:32 methotrexate Allergy Anxiety Verified 05/20/24 22:32 Penicillins Allergy Unknown Verified 05/20/24 22:32 prednisone Allergy Hallucinati Verified 05/20/24 22:32 ons abx Allergy Unknown Uncoded 05/20/24 22:32 Review of Systems - Constitutional Constitutional: reports: Fatigue, Weakness, Poor appetite, Other (syncope) - Musculoskeletal Musculoskeletal: reports: Back pain - Neurological Neurological: reports: General weakness - Psychiatric Psychiatric: reports: Anxiety Exam - Vital Signs Vital Signs: Vital Signs x48h Temp Pulse Pulse Resp BP BP Pulse Ox 05/21/24 09:35 36.4 C L 77 18 156/90 H 98 05/21/24 09:00 36.8 C 73 10 L 140/80 H 97 05/21/24 07:30 76 11 L 125/75 95 05/21/24 06:15 77 114/73 94 05/21/24 05:11 74 16 138/88 H 97 05/21/24 04:00 82 16 110/76 98 Conclusion/Plan - Lab Results Fish Bones: 05/21/24 08:52 05/21/24 08:52
[2024-05-21] MEDS: HYDROmorphone 0.5 MG/0.5 ML SYRINGE IVP PRN (12:08)
[2024-05-21] MEDS: SODIUM CHLORIDE FLUSH 0.9% 10 ML SYRINGE IVP SCH (12:09)
--- NOTE | 2024-05-21 12:33 | PHARMACY PROGRESS NOTE ---
- Best Possible Medication History Admit Date and Time: 05/21/24 0816 Processed by: Pharmacy Medications reviewed in ED?: Yes Medication History completed: Yes Patient Interview: Completed Secondary Source(s): Pharmacy records, Insurance records As the person ultimately responsible for medication therapy, providers are able to order a medication from an existing home medication list in [facility] via the "Reconcile Routine" prior to Confirmation of that medication by clinical support specialist. Such practice is discouraged except when the physician, in their clinical judgment, deems that a medical need exists for a medication without regard to previous use.
[2024-05-21] MEDS: MULTIVITAMIN 10 ML, THIAMINE INJ 100 MG, FOLIC ACID INJ 1 MG in SODIUM CHLORIDE 0.9% 1,... IV SCH (12:45)
[2024-05-21] MEDS ORDERED: ONDANSETRON 4 MG/2 ML VIAL ONE (14:46)
[2024-05-21] MEDS: ONDANSETRON 4 MG/2 ML VIAL IVP PRN (14:48)
--- NOTE | 2024-05-21 15:05 | HISTORY & PHYSICAL EXAMINATION ---
Chief Complaint - Chief Complaint Chief Complaint: Fall History of Present Illness - History of Present Illness HPI Comment/Other: The patient is a pleasant 68 year old male. He has a past mendical history significant for a hiatal hernia, currently going through outpatient process of getting set up for surgical repair. In addition the patient has a history of significant PTSD. He has a history of alcohol abuse. He had a fall last month and injured his lower back and coccyx. He says he has 2 fractures in the coccyx. Since then he has had terrible pain. Yesterday he says he stood up and passed out and fell. He is having even worse pain now. Work up in the ED revealed an alcohol level History - Past Medical History Cardiovascular: reports: None Respiratory: reports: None Neuro: reports: None Endocrine/Autoimmune: reports: None GI: reports: GERD : reports: Other HEENT: reports: None Psych: reports: Depression Musculoskeletal: reports: None Derm: reports: None MRSA Hx?: No - Past Surgical History General: reports: Cholecystectomy - POLST Patient has POLST: No Meds/Allgy - Home Medications Home Medications: Ambulatory Orders Medication Instructions Recorded Confirmed Docusate Sodium 100Mg Capsule 100 mg PO DAILY #20 cap 04/22/24 05/21/24 [Colace 100Mg Capsule] Gabapentin [Neurontin] 100 mg PO BID 15 Days #30 cap 04/22/24 05/21/24 Meloxicam [Mobic] 7.5 mg PO BID 10 Days #20 tablet 04/22/24 05/21/24 Omeprazole 20 mg PO DAILY 04/22/24 05/21/24 Ondansetron HCl 4 mg PO Q8H PRN 05/21/24 05/21/24 Prazosin [Minipress] 4 - 6 mg PO QPM PRN 05/21/24 05/21/24 Promethazine [Phenergan] 12.5 mg PO Q6H PRN 05/21/24 05/21/24 traMADol [Ultram] 50 mg PO Q4-6H PRN 05/21/24 05/21/24 - Allergies Allergies/Adverse Reactions: Allergies Allergy/AdvReac Type Severity Reaction Status Date / Time doxycycline Allergy Unknown Verified 05/20/24 22:32 ibuprofen Allergy Emesis Verified 05/20/24 22:32 methotrexate Allergy Anxiety Verified 07/18/24 22:32 Penicillins Allergy Unknown Verified 05/20/24 22:32 prednisone Allergy Hallucinati Verified 05/20/24 22:32 ons abx Allergy Unknown Uncoded 05/20/24 22:32 Review of Systems - Constitutional Constitutional: reports: Fatigue, Weakness - Musculoskeletal Musculoskeletal: reports: Muscle pain, Back pain - Neurological Neurological: reports: General weakness - Psychiatric Psychiatric: reports: Anxiety - All Other Systems All Other Systems: reports: Reviewed and negative Prior Level of Functionality: Normally is independent with ADL's Exam - Vital Signs Reviewed Vital Signs: Yes Vital Signs: Vital Signs x48h Temp Pulse Pulse Resp BP BP Pulse Ox 05/21/24 13:52 36.6 C 87 18 125/82 H 98 05/21/24 09:35 36.4 C L 77 18 156/90 H 98 05/21/24 09:00 36.8 C 73 10 L 140/80 H 97 05/21/24 07:30 76 11 L 125/75 95 - Physical Exam General Appearance: positive: Mild distress, Other (Quite anxious) Eyes Bilateral: positive: Normal inspection ENT: positive: ENT inspection nml Neck: positive: Nml inspection Respiratory: positive: Chest non-tender, No respiratory distress, Breath sounds nml Cardiovascular: positive: No murmur, No gallop, Tachycardia. negative: Friction rub Abdomen: positive: Non-tender, No organomegaly, Nml bowel sounds Skin: positive: Color nml, No rash, Warm Extremities: positive: Non-tender. negative: Full ROM Neurologic/Psychiatric: positive: Oriented x3, CN's nml (2-12), Other (Quite anxious and somewhat tremulous) Conclusion/Plan - Problem List (1) Fractured coccyx Conclusion/Plan: He had a CT scan last month and a MRI was recommended. The patient refused due to his extreme anxiety. Supportive care. Will have PT/OT see the patient (2) Acute on chronic low back pain Conclusion/Plan: Will try IV tylenol. He will also have hydrocodone and IV dilaudid available for severe pain (3) Alcohol use disorder Conclusion/Plan: CIWA protocol. The patient minimizes his drinking. However alcohol level on admission was 376 (4) Alcohol withdrawal Conclusion/Plan: CIWA. Patient having nausea and vomiting this afternoon. He will have IV zofran and po phenergan available as needed (5) Marijuana use Conclusion/Plan: Noted. He uses this for appetite and anxiety (6) Hiatal hernia Conclusion/Plan: He is seeing an outpatient provider for consideration of surgical repair (7) GERD (gastroesophageal reflux disease) Conclusion/Plan: Continue PPI (8) PTSD (post-traumatic stress disorder) Conclusion/Plan: Continue prazosin (9) Syncope Conclusion/Plan: Likely due to alcohol intoxication (10) Ambulatory dysfunction Conclusion/Plan: Due to his coccyx fracture and alcohol. PT/OT have been ordered Disposition: The patient will be placed in observation in the hospital. He is showing mild alcohol withdrawal symptoms. He has uncontrolled pain. Will make further decisions after we see how he does over the next 24 hours Time spent: 35 minutes - Lab Results Lab results reviewed: No Fish Bones: 05/21/24 08:52 05/21/24 08:52
[2024-05-21] MEDS: PROMETHAZINE 25 MG TABLET PO PRN (15:51)
[2024-05-21] MEDS: LORazepam 2 MG/ML VIAL IVP PRN (18:12)
[2024-05-21] MEDS: METOCLOPRAMIDE 10 MG/2 ML VIAL IVP PRN (18:18)
[2024-05-22] MEDS: SODIUM CHLORIDE FLUSH 0.9% 10 ML SYRINGE IVP PRN (05:23)
[2024-05-22 05:35] LABS: RED BLOOD COUNT 3.58 10^6/uL (4.70-6.10); RED CELL DISTRIBUTION WIDTH 12.9 % (12.0-15.0)
[2024-05-22 05:41] LABS: BASOPHILS % (AUTO) 0.7 %; EOSINOPHILS # (AUTO) 0.1 10^3/uL (0.0-0.7); EOSINOPHILS % (AUTO) 2.8 %; HCT - HEMATOCRIT 37.3 % (42.0-52.0); HGB - HEMOGLOBIN 12.5 g/dL (14.0-18.0); LYMPHOCYTES # (AUTO) 0.9 10^3/uL (1.5-3.5); LYMPHOCYTES % (AUTO) 29.8 %; MEAN CORPUSCULAR HEMOGLOBIN 34.9 pg (27.0-31.0); MEAN CORPUSCULAR HGB CONC 33.5 g/dL (32.0-36.0); MEAN CORPUSCULAR VOLUME 104.2 fL (80.0-94.0); MEAN PLATELET VOLUME 10.8 fL (7.4-11.4); MONOCYTES # (AUTO) 0.4 10^3/uL (0.0-1.0); MONOCYTES % (AUTO) 13.7 %; NEUTROPHILS # (AUTO) 1.5 10^3/uL (1.5-6.6); PLT - PLATELET COUNT 103 10^3/uL (130-450); WHITE BLOOD COUNT 2.9 x10^3/uL (4.8-10.8)
[2024-05-22] MEDS: PANTOPRAZOLE 40 MG TABLET PO SCH (06:04)
[2024-05-22 06:08] LABS: ALBUMIN 3.9 g/dL (3.2-5.5); CALCIUM 9.1 mg/dL (8.5-10.3); CREATININE 0.7 mg/dL (0.6-1.3); MAGNESIUM 1.8 mg/dL (1.7-2.3); PHOSPHORUS 4.3 mg/dL (2.5-5.0)
[2024-05-22 06:15] LABS: SLIDE REVIEW? Indicated
[2024-05-22 07:00] LABS: PLATELET MORPHOLOGY NORMAL APPEARANCE (NORMAL)
[2024-05-22 07:01] LABS: PLATELET ESTIMATE, MANUAL DECREASED (<130,000) (NORMAL)
--- NOTE | 2024-05-22 08:40 | PROVIDER PROGRESS NOTE ---
Subjective - Prog Note Date Prog Note Date: 05/22/24 Prog Note Time: 08:40 - Subjective Pt reports feeling: Improved, No change Subjective: The patient continues to have quite a bit of pain this morning. He also took a sip of his orange juice this morning and had an episode of vomiting. He was given some IV Zofran with relief. The patient has been somewhat agitated as well. He denies fever or chills. No chest pain or heart palpitations. He has had ongoing nausea and vomiting that is poorly controlled. No significant abdominal pain. He continues to have severe pain in the sacral area. He has no urinary complaints. Current Medications - Current Medications Current Medications: Acetaminophen 650 mg p.o. every 4 hours IV acetaminophen every 6 hours as needed pain Hydrocodone 5/325 mg 1 p.o. every 4 hours as needed pain Colace 100 mg daily Lovenox 40 mg subcu daily Gabapentin 300 mg p.o. twice daily Haldol 2 mg IV every 6 hours as needed agitation Dilaudid 0.5 mg IV every 4 hours as needed severe pain CIWA protocol with lorazepam Meloxicam 15 mg daily Reglan 5 mg IV every 6 hours as needed nausea and vomiting Zofran 4 mg IV every 4 hours as needed nausea and vomiting Protonix 40 mg daily vitamin daily Promethazine 25 mg p.o. every 6 hours as needed nausea and vomiting Objective - Vital Signs/Intake & Output Reviewed Vital Signs: Yes Vital Signs: Vital Signs x48h Temp Pulse Resp BP Pulse Ox 05/22/24 07:43 36.5 C 71 17 153/82 H 98 05/22/24 05:50 36.5 C 85 20 143/88 H 97 Intake & Output: Intake & Output 05/19/24 05/20/24 05/21/24 05/22/24 23:59 23:59 23:59 23:59 Intake Total 1000 1431.2 Output Total 801 Balance 1000 630.2 - Objective General Appearance: positive: No acute distress, Anxious, Other (He looks as if he feels quite poorly and appears to be in pain moving around in the bed) Eyes Bilateral: positive: Normal inspection ENT: positive: ENT inspection nml Neck: positive: Nml inspection Respiratory: positive: Chest non-tender, No respiratory distress, Breath sounds nml Cardiovascular: positive: Regular rate & rhythm, No murmur, No gallop. negative: Friction rub Abdomen: positive: Non-tender, No organomegaly, Nml bowel sounds, No distention Skin: positive: Color nml, No rash, Warm, Dry Extremities: positive: Non-tender, Other (Quite a bit of low back pain whenever he moves) Neurologic/Psychiatric: positive: Oriented x3, CN's nml (2-12) - Lab Results Fish Bones: 05/22/24 05:07 05/22/24 05:07 Other Labs: Lab Results x24hrs 05/22/24 05/22/24 05/21/24 Range/Units 05:07 05:07 08:52 WBC 2.9 L (4.8-10.8) x10^3/uL RBC 3.58 L (4.70-6.10) 10^6/uL Hgb 12.5 L (14.0-18.0) g/dL Hct 37.3 L (42.0-52.0) % MCV 104.2 H (80.0-94.0) fL MCH 34.9 H (27.0-31.0) pg MCHC 33.5 (32.0-36.0) g/dL RDW 12.9 (12.0-15.0) % Plt Count 103 L (130-450) 10^3/uL MPV 10.8 (7.4-11.4) fL Neut # (Auto) 1.5 (1.5-6.6) 10^3/uL Lymph # (Auto) 0.9 L (1.5-3.5) 10^3/uL [place] # (Auto) 0.4 (0.0-1.0) 10^3/uL Eos # (Auto) 0.1 (0.0-0.7) 10^3/uL Baso # (Auto) 0.0 (0.0-0.1) 10^3/uL Absolute Nucleated RBC 0.00 x10^3/uL Nucleated RBC % 0.0 /100WBC Manual Slide Review Indicated Platelet Estimate DECREASED (<130,000) (NORMAL) Platelet Morphology NORMAL APPEARANCE (NORMAL) PT (9.9-12.6) secs INR (0.8-1.2) Sodium 138 139 (135-145) mmol/L Potassium 4.0 4.0 (3.5-4.5) mmol/L Chloride 103 105 (101-111) mmol/L Carbon Dioxide 27 23 (21-32) mmol/L Anion Gap 8.0 11.0 (6-13) BUN 15 9 (6-20) mg/dL Creatinine 0.7 0.5 L (0.6-1.3) mg/dL Estimated GFR (MDRD) 112 165 (>89) Glucose 92 80 (74-104) mg/dL Calcium 9.1 8.9 (8.5-10.3) mg/dL Phosphorus 4.3 (2.5-5.0) mg/dL Magnesium 1.8 (1.7-2.3) mg/dL Total Bilirubin 0.6 (0.2-1.0) mg/dL AST 34 (10-42) IU/L ALT 16 (10-60) IU/L Alkaline Phosphatase 70 (42-121) IU/L Total Protein 6.4 (6.4-8.9) g/dL Albumin 3.9 4.0 (3.2-5.5) g/dL Globulin 2.4 (2.1-4.2) g/dL Albumin/Globulin Ratio 1.7 (1.0-2.2) 05/21/24 05/21/24 Range/Units 08:52 08:52 WBC 4.3 L (4.8-10.8) x10^3/uL RBC 4.01 L (4.70-6.10) 10^6/uL Hgb 13.5 L (14.0-18.0) g/dL Hct 42.3 (42.0-52.0) % MCV 105.5 H (80.0-94.0) fL MCH 33.7 H (27.0-31.0) pg MCHC 31.9 L (32.0-36.0) g/dL RDW 13.2 (12.0-15.0) % Plt Count 144 (130-450) 10^3/uL MPV 10.6 (7.4-11.4) fL Neut # (Auto) 2.7 (1.5-6.6) 10^3/uL Lymph # (Auto) 1.1 L (1.5-3.5) 10^3/uL [place] # (Auto) 0.3 (0.0-1.0) 10^3/uL Eos # (Auto) 0.1 (0.0-0.7) 10^3/uL Baso # (Auto) 0.0 (0.0-0.1) 10^3/uL Absolute Nucleated RBC 0.00 x10^3/uL Nucleated RBC % 0.0 /100WBC Manual Slide Review Platelet Estimate (NORMAL) Platelet Morphology (NORMAL) PT 12.6 (9.9-12.6) secs INR 1.1 (0.8-1.2) Sodium (135-145) mmol/L Potassium (3.5-4.5) mmol/L Chloride (101-111) mmol/L Carbon Dioxide (21-32) mmol/L Anion Gap (6-13) BUN (6-20) mg/dL Creatinine (0.6-1.3) mg/dL Estimated GFR (MDRD) (>89) Glucose (74-104) mg/dL Calcium (8.5-10.3) mg/dL Phosphorus (2.5-5.0) mg/dL Magnesium (1.7-2.3) mg/dL Total Bilirubin (0.2-1.0) mg/dL AST (10-42) IU/L ALT (10-60) IU/L Alkaline Phosphatase (42-121) IU/L Total Protein (6.4-8.9) g/dL Albumin (3.2-5.5) g/dL Globulin (2.1-4.2) g/dL Albumin/Globulin Ratio (1.0-2.2) Assessment/Plan - Problem List (1) Acute on chronic low back pain Impression: The patient is having severe uncontrolled pain requiring parenteral narcotics. Will continue to adjust his pain regimen. (2) Fractured coccyx Impression: The patient should work with physical therapy and Occupational Therapy. We should try to get him up to a chair. The patient has been taking IV Dilaudid. Would encourage him to try some of the IV Tylenol as well. I am not sure he can go home in his present situation. We may need to consider placement for subacute rehabilitation (3) Intractable nausea and vomiting Impression: The patient has had fairly intractable nausea and vomiting that has been resistant to multiple agents. He has several options available. He tried to drink his orange juice this morning and vomited it up again. Continue antiemetics along with CIWA protocol. (4) Alcohol use disorder Impression: He is highly encouraged to quit drinking. Difficult to talk about because the patient minimizes his drinking quite a bit. (5) Alcohol withdrawal Impression: Continue CIWA protocol. I believe that some of his intractable nausea and vomiting is due to alcohol withdrawal in the setting of his hiatal hernia (6) Marijuana use Impression: He uses this for appetite and anxiety at home. He uses edibles (7) Hiatal hernia Impression: He has been following with surgery as an outpatient and is in the process of possibly getting set up for surgical repair due to the severity of his symptoms. Continue Protonix 40 mg daily (8) GERD (gastroesophageal reflux disease) Impression: Continue Protonix 40 mg daily (9) PTSD (post-traumatic stress disorder) Impression: The patient has rather significant anxiety at baseline. Continue prazosin (10) Syncope Impression: I believe this could have been due to alcohol intoxication. His alcohol level was 376 when he arrived at the hospital. No further workup unless he develops further symptoms. (11) Ambulatory dysfunction Impression: Continue to work with physical therapy and Occupational Therapy I believe since he lives alone and has no support system that he would be best served by going to subacute rehabilitation at discharge. Will discuss with the care management team. Disposition: The patient has ongoing nausea and vomiting requiring parenteral antiemetics. He continues to have severe pain requiring parenteral narcotics. He also is going through active alcohol withdrawal. Clearly he needs further hospitalization at this time Time spent: 35 minutes
[2024-05-22] MEDS: PRENATAL VITAMIN TABLET PO SCH (09:21)
[2024-05-22] MEDS: GI COCKTAIL 120 ML BOTTLE PO PRN (14:10)
[2024-05-22] MEDS: ACETAMINOPHEN 325 MG TABLET PO PRN (20:33)
[2024-05-23 05:19] LABS: BASOPHILS % (AUTO) 1.2 %; EOSINOPHILS # (AUTO) 0.1 10^3/uL (0.0-0.7); EOSINOPHILS % (AUTO) 3.7 %; HCT - HEMATOCRIT 35.1 % (42.0-52.0); HGB - HEMOGLOBIN 11.6 g/dL (14.0-18.0); LYMPHOCYTES # (AUTO) 0.9 10^3/uL (1.5-3.5); LYMPHOCYTES % (AUTO) 36.8 %; MEAN CORPUSCULAR HEMOGLOBIN 33.7 pg (27.0-31.0); MEAN PLATELET VOLUME 11.1 fL (7.4-11.4); MONOCYTES # (AUTO) 0.3 10^3/uL (0.0-1.0); MONOCYTES % (AUTO) 10.3 %; NEUTROPHILS # (AUTO) 1.2 10^3/uL (1.5-6.6); NEUTROPHILS % (AUTO) 47.6 %; PLT - PLATELET COUNT 92 10^3/uL (130-450); RED BLOOD COUNT 3.44 10^6/uL (4.70-6.10); RED CELL DISTRIBUTION WIDTH 12.8 % (12.0-15.0); WHITE BLOOD COUNT 2.4 x10^3/uL (4.8-10.8)
[2024-05-23 05:40] LABS: ALBUMIN 3.5 g/dL (3.2-5.5); CALCIUM 9.1 mg/dL (8.5-10.3); CREATININE 0.6 mg/dL (0.6-1.3); MAGNESIUM 1.5 mg/dL (1.7-2.3); PHOSPHORUS 3.2 mg/dL (2.5-5.0); POTASSIUM 3.7 mmol/L (3.5-4.5)
[2024-05-23] MEDS: MAGNESIUM SULFATE 2 GRAM 2 GM/50 ML BAG IV ONE (08:00)
[2024-05-23] MEDS ORDERED: iohexoL-300 100 ML VIAL ONE (08:57)
[2024-05-23] MEDS: polyethylene glycoL 3350 17 GM PACKET PO SCH (09:04)
[2024-05-23] MEDS: LACTULOSE 10 GM /15 ML UDC PO ONE (09:05)
[2024-05-23] MEDS: METOCLOPRAMIDE 10 MG/2 ML VIAL IVP SCH (10:41)
[2024-05-23] MEDS: SODIUM CHLORIDE 0.9% 1,000 ML IV SCH (10:53)
--- NOTE | 2024-05-23 11:15 | CT Report ---
PROCEDURE: Abdomen/Pelvis W INDICATIONS: nausea vomiting, intractable CONTRAST: 100ml omni 300 TECHNIQUE: After the administration of intravenous contrast, a CT scan of the abdomen and pelvis was performed. Images were recorded and evaluated at appropriate window settings. Reformats: coronal and sagittal. F or radiation dose reduction, the following was used: automated exposure control, adjustment of mA and /or kV according to patient size. COMPARISON: CT of lumbar spine dated . CT of abdomen and pelvis dated 01/28/2024. FINDINGS: Image quality: Diagnostic. Lower chest: Unremarkable. Liver: No solid mass. 3-4 tiny subcentimeter hypodensities are seen scattered in right hepatic lobe a nd measures up to 6 mm in size likely represent hepatic cysts. Moderate hepatic steatosis is again se en and unchanged. Gallbladder: Gallbladder is surgically absent. Biliary tree: No intrahepatic or extrahepatic dilation, accounting for age. Spleen: No splenomegaly. Pancreas: No pancreatic ductal dilation. Adrenals: No adrenal nodule. Kidneys and ureters: There is interval development of moderate right-sided hydronephrosis with right perinephric fat stranding. Right hydroureter is seen with focal caliber change and complained hyperde nsities measures 1 to 2 mm in size seen in distal right ureter concerning for distal ureteral stones series 2 image 105 at 104. No left-sided hydronephrosis or hydroureter. Simple appearing left renal c yst is seen. Stomach, bowel and peritoneum: There is a small hiatal hernia. No evidence of bowel obstruction. No a bnormal bowel wall thickening or mesenteric fat stranding. Postsurgical changes in right side of abdo men are seen. Postsurgical changes also seen in left lower quadrant abdomen with multiple. Questionab le sigmoid colon wall thickening. No abscess collection. No free fluid of free air. Lymph nodes: No c entral or retroperitoneal adenopathy. Vessels: No infrarenal aortic aneurysm. Patent portal vein. PELVIS Reproductive organs: Mildly enlarged prostate gland is seen. Bladder: .Markedly distended urinary bladder with mild diffuse bladder wall thickening and trabeculat ion concerning for outlet obstruction. Pelvic lymph nodes: No pelvic adenopathy by size criteria. Bones: No aggressive osseous abnormality. Subacute to chronic appearing fracture involving bilateral inferior pubic rami and left superior pubic ramus. Increased sclerosis involving left sacral alae, macdonald btle insufficiency fracture cannot be entirely excluded. No acute vertebral body compression fracture . Other: No significant ventral or inguinal hernia. IMPRESSION: 1. No evidence of bowel obstruction. Postsurgical changes in left lower quadrant abdomen right side o f abdomen suggest clinical correlation. Questionable sigmoid colon wall thickening which may represen t sigmoid colitis. This could also represent postsurgical reactive changes. No abscess collection. No free fluid of free air. Small hiatal hernia. 2. Interval development of moderate right-sided hydronephrosis and hydroureter. Questionable tiny 1 t o 2 mm calcification seen in distal right ureter proximal to the right UVJ, which could represent par tially obstructing stones. No left-sided hydronephrosis or hydroureter. 3. Markedly distended urinary bladder with bladder wall thickening and trabeculation. Mildly enlarged prostate gland. Finding may indicate chronic urinary outlet obstruction and suggest clinical correla tion. 4. Subacute to chronic appearing deformities involving bilateral pubic rami as above. Likely subacute insufficiency fracture involving left sacral cezar. Reviewed by: Manuel Angela MD on 05/23/2024 11:14 AM PDT Approved by: Manuel Angela MD on 05/23/2024 11:14 AM PDT Station ID: [id number]
[2024-05-23] MEDS: iohexoL-300 100 ML VIAL IVP ONE (11:43)
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
[2024-05-23] MEDS ORDERED: TAMSULOSIN 0.4 MG CAPSULE PO SCH (13:00)
[2024-05-23 13:04] LABS: BILIRUBIN,URINE NEGATIVE (NEGATIVE); GLUCOSE, URINE (UA) NEGATIVE (NEGATIVE); KETONES,URINE (UA) NEGATIVE (NEGATIVE); LEUKOCYTE ESTERASE, URINE NEGATIVE (NEGATIVE); NITRITE,URINE NEGATIVE (NEGATIVE); OCCULT BLOOD,URINE NEGATIVE (NEGATIVE); PH,URINE 7.5 PH (5.0-7.5); PROTEIN,URINE NEGATIVE (NEGATIVE); UROBILINOGEN,URINE 0.2 (NORMAL) E.U./dL (NORMAL)
[2024-05-23 13:05] LABS: CLARITY,URINE CLEAR (CLEAR)
[2024-05-23 13:12] LABS: BACTERIA,URINE Few /HPF (None Seen); RBC,URINE None Seen /HPF (0-5); SQUAMOUS EPITHELIAL CELL,UR NONE SEEN (<= Few); WBC,URINE 0-3 /HPF (0-3)
[2024-05-23] MEDS: cefTRIAXone 2 GM in SODIUM CHLORIDE 0.9% MINIBAG 100 ML IV SCH (13:14)
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
[2024-05-23] MEDS: DOCUSATE SODIUM 100 MG CAPSULE PO SCH (21:07)
[2024-05-24 05:47] LABS: EOSINOPHILS # (AUTO) 0.2 10^3/uL (0.0-0.7); EOSINOPHILS % (AUTO) 5.4 %; HCT - HEMATOCRIT 35.8 % (42.0-52.0); HGB - HEMOGLOBIN 11.9 g/dL (14.0-18.0); LYMPHOCYTES # (AUTO) 0.9 10^3/uL (1.5-3.5); LYMPHOCYTES % (AUTO) 31.4 %; MEAN CORPUSCULAR HEMOGLOBIN 34.3 pg (27.0-31.0); MEAN CORPUSCULAR HGB CONC 33.2 g/dL (32.0-36.0); MEAN CORPUSCULAR VOLUME 103.2 fL (80.0-94.0); MEAN PLATELET VOLUME 10.9 fL (7.4-11.4); MONOCYTES # (AUTO) 0.3 10^3/uL (0.0-1.0); MONOCYTES % (AUTO) 9.5 %; NEUTROPHILS # (AUTO) 1.6 10^3/uL (1.5-6.6); NEUTROPHILS % (AUTO) 52.7 %; PLT - PLATELET COUNT 106 10^3/uL (130-450); RED BLOOD COUNT 3.47 10^6/uL (4.70-6.10); RED CELL DISTRIBUTION WIDTH 12.9 % (12.0-15.0)
[2024-05-24 05:58] LABS: SLIDE REVIEW? Indicated
[2024-05-24 06:04] LABS: ALBUMIN 3.4 g/dL (3.2-5.5); CALCIUM 8.6 mg/dL (8.5-10.3); CREATININE 0.6 mg/dL (0.6-1.3); MAGNESIUM 1.4 mg/dL (1.7-2.3); PHOSPHORUS 3.8 mg/dL (2.5-5.0); POTASSIUM 3.7 mmol/L (3.5-4.5)
[2024-05-24 06:35] LABS: PLATELET ESTIMATE, MANUAL NORMAL (130-450,000) (NORMAL); PLATELET MORPHOLOGY NORMAL APPEARANCE (NORMAL)
--- NOTE | 2024-05-24 07:35 | PROVIDER PROGRESS NOTE ---
Subjective - General Admit Date: 05/22/24 - Review of Systems All Other Systems: positive: Reviewed and negative - Other Other Information/Narrative: No acute changes overnight. Objective - Patient Data Vital Signs: Vital Signs x48h Temp Pulse Resp BP Pulse Ox 05/23/24 23:37 36.8 C 77 18 157/87 H 98 Intake & Output: Intake and Output Totals x24h 05/22/24 05/23/24 05/24/24 23:59 23:59 23:59 Intake Total 1200 4350 Output Total 120 750 Balance 1080 3600 - Lab Results Lab Results: 05/24/24 05:31 05/24/24 05:31 Other Lab Results: Lab Results x24hrs 05/24/24 05/24/24 05/23/24 Range/Units 05:31 05:31 12:50 WBC 3.0 L (4.8-10.8) x10^3/uL RBC 3.47 L (4.70-6.10) 10^6/uL Hgb 11.9 L (14.0-18.0) g/dL Hct 35.8 L (42.0-52.0) % MCV 103.2 H (80.0-94.0) fL MCH 34.3 H (27.0-31.0) pg MCHC 33.2 (32.0-36.0) g/dL RDW 12.9 (12.0-15.0) % Plt Count 106 L (130-450) 10^3/uL MPV 10.9 (7.4-11.4) fL Neut # (Auto) 1.6 (1.5-6.6) 10^3/uL Lymph # (Auto) 0.9 L (1.5-3.5) 10^3/uL [place] # (Auto) 0.3 (0.0-1.0) 10^3/uL Eos # (Auto) 0.2 (0.0-0.7) 10^3/uL Baso # (Auto) 0.0 (0.0-0.1) 10^3/uL Absolute Nucleated RBC 0.00 x10^3/uL Nucleated RBC % 0.0 /100WBC Manual Slide Review Indicated Platelet Estimate NORMAL (130-450,000) (NORMAL) Platelet Morphology NORMAL APPEARANCE (NORMAL) Sodium 138 (135-145) mmol/L Potassium 3.7 (3.5-4.5) mmol/L Chloride 105 (101-111) mmol/L Carbon Dioxide 29 (21-32) mmol/L Anion Gap 4.0 L (6-13) BUN 6 (6-20) mg/dL Creatinine 0.6 (0.6-1.3) mg/dL Estimated GFR (MDRD) 134 (>89) Glucose 98 (74-104) mg/dL Calcium 8.6 (8.5-10.3) mg/dL Phosphorus 3.8 (2.5-5.0) mg/dL Magnesium 1.4 L (1.7-2.3) mg/dL Albumin 3.4 (3.2-5.5) g/dL Urine Color YELLOW Urine Clarity CLEAR (CLEAR) Urine pH 7.5 (5.0-7.5) PH Ur Specific [place] 1.015 (1.002-1.030) Urine Protein NEGATIVE (NEGATIVE) mg/dL Urine Glucose (UA) NEGATIVE (NEGATIVE) mg/dL Urine Ketones NEGATIVE (NEGATIVE) mg/dL Urine Occult Blood NEGATIVE (NEGATIVE) Urine Nitrite NEGATIVE (NEGATIVE) Urine Bilirubin NEGATIVE (NEGATIVE) Urine Urobilinogen 0.2 (NORMAL) (NORMAL) E.U./dL Ur Leukocyte Esterase NEGATIVE (NEGATIVE) Urine RBC None Seen (0-5) /HPF Urine WBC 0-3 (0-3) /HPF Ur Squamous Epith Cells NONE SEEN (<= Few) Urine Bacteria Few (None Seen) /HPF Urine Culture Comments NOT INDICATED - Current Medications Current Medications: Current Medications Generic Name Dose Route Start Last Admin Trade Name Liliane PRN Reason Stop Dose Admin Acetaminophen 650 mg 05/21/24 08:16 05/22/24 20:33 Acetaminophen 325 Mg Tablet PO 650 mg Q4HR PRN Administration Pain 1 to 4, or Fever Hydrocodone Bitart/Acetaminophen 1 tab 05/21/24 08:16 05/23/24 16:04 Hydrocod/Acetam 5/325 Mg Tablet PO 1 tab Q4HR PRN Administration Pain 5 to 7 Docusate Sodium 100 mg 05/23/24 21:00 05/24/24 07:24 Docusate Sodium 100 Mg Capsule PO Not Given BID [facility] Gabapentin 300 mg 05/21/24 09:00 05/23/24 21:07 Gabapentin 300 Mg Capsule PO 300 mg BID ROSA Administration Hydromorphone HCl 0.5 mg 05/21/24 08:16 05/24/24 05:25 Hydromorphone 0.5 Mg/0.5 Ml Syringe IVP 0.5 mg Q4H PRN Administration Pain 8 to 10 Acetaminophen 1,000 mg in 100 mls @ 400 mls/hr 05/21/24 08:21 05/21/24 18:33 Acetaminophen IV Infused Q6HR PRN Infusion Moderate Pain (Level 4-6) Sodium Chloride 1,000 mls @ 100 mls/hr 05/23/24 11:00 05/23/24 22:36 Normal Saline 0.9% IV 100 mls/hr .Q10H ROSA Administration Ceftriaxone Sodium 2 gm/ 100 mls @ 200 mls/hr 05/23/24 13:00 05/23/24 13:44 Sodium Chloride IV Infused DAILY ROSA Infusion Lorazepam 1 mg 05/21/24 08:27 05/22/24 14:11 Lorazepam 2 Mg/Ml Vial IVP 1 mg Q30M PRN Administration CIWA >8 Protocol Metoclopramide HCl 5 mg 05/23/24 11:00 05/24/24 06:44 Metoclopramide 10 Mg/2 Ml Vial IVP 5 mg ACHS ROSA Administration Multi-Ingredient Mouthwash/Gargle 30 ml 05/22/24 09:41 05/22/24 14:10 Gi Cocktail 120 Ml Bottle PO 30 ml Q4H PRN Administration HEARTBURN Ondansetron HCl 4 mg 05/21/24 14:44 05/24/24 01:08 Ondansetron 4 Mg/2 Ml Vial IVP 4 mg Q4HR PRN Administration Nausea / Vomiting Pantoprazole Sodium 40 mg 05/22/24 07:00 05/24/24 06:44 Pantoprazole 40 Mg Tablet PO 40 mg QDAC ROSA Administration Polyethylene Glycol 17 gm 05/23/24 09:00 05/24/24 07:24 Polyethylene Glycol 3350 17 Gm Packet PO Not Given DAILY ROSA Multivit/Folic Acid/Iron 1 tab 05/22/24 08:00 05/23/24 08:52 Vitamin Tablet PO 1 tab DAILYWM ROSA Administration Promethazine HCl 25 mg 05/21/24 14:44 05/23/24 09:05 Promethazine 25 Mg Tablet PO 25 mg Q6HR PRN Administration Nausea / Vomiting Sodium Chloride 10 ml 05/21/24 08:16 05/24/24 05:25 Sodium Chloride Flush 0.9% 10 Ml Syringe IVP 10 ml PRN PRN Administration NEEDED PER PROVIDER ORDERS Sodium Chloride 10 ml 05/21/24 09:00 05/24/24 07:25 Sodium Chloride Flush 0.9% 10 Ml Syringe IVP Not Given 0100,0900,1700 ROSA Thiamine HCl 100 mg 05/21/24 09:00 05/23/24 08:52 Thiamine 100 Mg Tablet PO 100 mg DAILY ROSA Administration - Physical Exam General Appearance: positive: No acute distress Respiratory: positive: Breath sounds nml Cardiovascular: positive: Regular rate & rhythm ABX Reporting Has patient been on IV antibiotics over the past 48 hours?: No Impression/Plan - Problem List Problem List: 68-year-old male with history of urethral injury and longstanding distended bladder now with persistent nausea and vomiting likely related to alcohol withdrawal along with new right-sided hydroureteronephrosis possibly related to ureteral stone though it seems unlikely. Will take the OR today for cystoscopy, urethral dilation, possible right ureteroscopy, possible laser lithotripsy, possible stent. We did discuss suprapubic tube which is also possible to perform during this procedure but I t hink unlikely that we will. We discussed the risk, benefits, alternatives with the patient and the patient states understanding and consents to the above plan N.p.o. for now
[2024-05-24] MEDS: MAGNESIUM SULFATE 1 GM in SODIUM CHLORIDE 0.9% 50 ML IV ONE (08:10)
--- NOTE | 2024-05-24 09:54 | ANESTHESIA ---
Pre-Anesthesia VS, & Labs - Diagnosis Diagnosis Distended bladder history of urethral injury Rigth hydroureteronephrosis - Procedure Cystoscopy Vital Signs: Temp Pulse Resp BP Pulse Ox O2 Flow Rate 36.8 C 72 18 152/91 H 95 05/24/24 09:41 05/24/24 09:41 05/24/24 09:41 05/24/24 09:41 05/24/24 09:41 Height: 6 ft 1 in Weight (kg): 76 kg Body Mass Index: 22.1 BMI Classification: Normal - Lab Results Current Lab Results: Laboratory Tests 05/24/24 05:31: Sodium 138, Potassium 3.7, Chloride 105, Carbon Dioxide 29, Anion Gap 4.0 L, BUN 6, Creatinine 0.6, Estimated GFR (MDRD) 134, Glucose 98, Calcium 8.6, Phosphorus 3.8, Magnesium 1.4 L, Albumin 3.4 05/24/24 05:31: WBC 3.0 L, RBC 3.47 L, Hgb 11.9 L, Hct 35.8 L, MCV 103.2 H, MCH 34.3 H, MCHC 33.2, RDW 12.9, Plt Count 106 L, MPV 10.9, Neut # (Auto) 1.6, Lymph # (Auto) 0.9 L, [place] # (Auto) 0.3, Eos # (Auto) 0.2, Baso # (Auto) 0.0, Absolute Nucleated RBC 0.00, Nucleated RBC % 0.0, Manual Slide Review Indicated, Platelet Estimate NORMAL (130-450,000), Platelet Morphology NORMAL APPEARANCE 05/23/24 04:55: Sodium 137, Potassium 3.7, Chloride 103, Carbon Dioxide 28, Anion Gap 6.0, BUN 15, Creatinine 0.6, Estimated GFR (MDRD) 134, Glucose 102, Calcium 9.1, Phosphorus 3.2, Magnesium 1.5 L, Albumin 3.5 05/23/24 04:55: WBC 2.4 L, RBC 3.44 L, Hgb 11.6 L, Hct 35.1 L, MCV 102.0 H, MCH 33.7 H, MCHC 33.0, RDW 12.8, Plt Count 92 L, MPV 11.1, Neut # (Auto) 1.2 L, Lymph # (Auto) 0.9 L, [place] # (Auto) 0.3, Eos # (Auto) 0.1, Baso # (Auto) 0.0, Absolute Nucleated RBC 0.00, Nucleated RBC % 0.0 05/22/24 05:07: Sodium 138, Potassium 4.0, Chloride 103, Carbon Dioxide 27, Anion Gap 8.0, BUN 15, Creatinine 0.7, Estimated GFR (MDRD) 112, Glucose 92, Calcium 9.1, Phosphorus 4.3, Magnesium 1.8, Albumin 3.9 05/22/24 05:07: WBC 2.9 L, RBC 3.58 L, Hgb 12.5 L, Hct 37.3 L, MCV 104.2 H, MCH 34.9 H, MCHC 33.5, RDW 12.9, Plt Count 103 L, MPV 10.8, Neut # (Auto) 1.5, Lymph # (Auto) 0.9 L, [place] # (Auto) 0.4, Eos # (Auto) 0.1, Baso # (Auto) 0.0, Absolute Nucleated RBC 0.00, Nucleated RBC % 0.0, Manual Slide Review Indicated, Platelet Estimate DECREASED (<130,000), Platelet Morphology NORMAL APPEARANCE 05/21/24 08:52: Sodium 139, Potassium 4.0, Chloride 105, Carbon Dioxide 23, Anion Gap 11.0, BUN 9, Creatinine 0.5 L, Estimated GFR (MDRD) 165, Glucose 80, Calcium 8.9, Total Bilirubin 0.6, AST 34, ALT 16, Alkaline Phosphatase 70, Total Protein 6.4, Albumin 4.0, Globulin 2.4, Albumin/Globulin Ratio 1.7 05/21/24 08:52: PT 12.6, INR 1.1 05/21/24 08:52: WBC 4.3 L, RBC 4.01 L, Hgb 13.5 L, Hct 42.3, MCV 105.5 H, MCH 33.7 H, MCHC 31.9 L, RDW 13.2, Plt Count 144, MPV 10.6, Neut # (Auto) 2.7, Lymph # (Auto) 1.1 L, [place] # (Auto) 0.3, Eos # (Auto) 0.1, Baso # (Auto) 0.0, Absolute Nucleated RBC 0.00, Nucleated RBC % 0.0 05/21/24 00:31: Urine Opiates Screen NEGATIVE, Ur Buprenorphine Scrn NEGATIVE, Ur Oxycodone Screen NEGATIVE, Urine Methadone Screen NEGATIVE, Ur Barbiturates Screen NEGATIVE, Ur Tricyclics Screen NEGATIVE, Ur Phencyclidine Scrn NEGATIVE, Ur Amphetamine Screen NEGATIVE, U Methamphetamines Scrn NEGATIVE, U Benzodiazepines Scrn NEGATIVE, Urine Cocaine Screen NEGATIVE, U Cannabinoids Screen POSITIVE H, Ur Drug Screen Comment CUTOFF CONC BELOW: 05/20/24 22:28: Sodium 138, Potassium 4.3, Chloride 103, Carbon Dioxide 28, Anion Gap 7.0, BUN 9, Creatinine 0.6, Estimated GFR (MDRD) 134, Glucose 90, Calcium 8.7, Total Bilirubin 0.5, AST 28, ALT 16, Alkaline Phosphatase 67, Total Protein 6.5, Albumin 4.0, Globulin 2.5, Albumin/Globulin Ratio 1.6, Lipase 58, Ethyl Alcohol 376.5 05/20/24 22:28: WBC 4.0 L, RBC 3.96 L, Hgb 13.4 L, Hct 40.2 L, MCV 101.5 H, MCH 33.8 H, MCHC 33.3, RDW 12.9, Plt Count 159, MPV 10.3, Neut # (Auto) 1.3 L, Lymph # (Auto) 2.3, [place] # (Auto) 0.3, Eos # (Auto) 0.1, Baso # (Auto) 0.0, Absolute Nucleated RBC 0.00, Nucleated RBC % 0.0 Fish Bones: 05/24/24 05:31 05/24/24 05:31 Home Medications and Allergies Home Medications: Ambulatory Orders Ondansetron HCl 4 mg PO Q8H PRN 05/21/24 Prazosin [Minipress] 4 - 6 mg PO QPM PRN 05/21/24 Promethazine [Phenergan] 12.5 mg PO Q6H PRN 05/21/24 traMADol [Ultram] 50 mg PO Q4-6H PRN 05/21/24 Active Medications Acetaminophen (Acetaminophen 325 Mg Tablet) 650 mg PO Q4HR PRN PRN Reason: Pain 1 to 4, or Fever Last Admin: 05/22/24 20:33 Dose: 650 mg Hydrocodone Bitart/Acetaminophen (Hydrocod/Acetam 5/325 Mg Tablet) 1 tab PO Q4HR PRN PRN Reason: Pain 5 to 7 Last Admin: 05/23/24 16:04 Dose: 1 tab Docusate Sodium (Docusate Sodium 100 Mg Capsule) 100 mg PO BID [facility] Last Admin: 05/24/24 07:24 Dose: Not Given Gabapentin (Gabapentin 300 Mg Capsule) 300 mg PO BID [facility] Last Admin: 05/24/24 08:16 Dose: 300 mg Haloperidol (Haloperidol 5 Mg/Ml Vial) 2 mg IVP Q6H PRN PRN Reason: Agitation Hydromorphone HCl (Hydromorphone 0.5 Mg/0.5 Ml Syringe) 0.5 mg IVP Q4H PRN PRN Reason: Pain 8 to 10 Last Admin: 05/24/24 05:25 Dose: 0.5 mg Acetaminophen (Acetaminophen) 1,000 mg in 100 mls @ 400 mls/hr IV Q6HR PRN PRN Reason: Moderate Pain (Level 4-6) Last Infusion: 05/21/24 18:33 Dose: Infused Sodium Chloride (Normal Saline 0.9%) 1,000 mls @ 100 mls/hr IV .Q10H [facility] Last Infusion: 05/24/24 08:10 Dose: 100 mls/hr Ceftriaxone Sodium 2 gm/ (Sodium Chloride) 100 mls @ 200 mls/hr IV DAILY [facility] Last Infusion: 05/23/24 13:44 Dose: Infused Lorazepam (Lorazepam 2 Mg/Ml Vial) 1 mg IVP Q30M PRN; Protocol PRN Reason: CIWA >8 Last Admin: 05/24/24 07:39 Dose: 1 mg Metoclopramide HCl (Metoclopramide 10 Mg/2 Ml Vial) 5 mg IVP ACHS [facility] Last Admin: 05/24/24 06:44 Dose: 5 mg Multi-Ingredient Mouthwash/Gargle (Gi Cocktail 120 Ml Bottle) 30 ml PO Q4H PRN PRN Reason: HEARTBURN Last Admin: 05/22/24 14:10 Dose: 30 ml Ondansetron HCl (Ondansetron 4 Mg/2 Ml Vial) 4 mg IVP Q4HR PRN PRN Reason: Nausea / Vomiting Last Admin: 05/24/24 01:08 Dose: 4 mg Pantoprazole Sodium (Pantoprazole 40 Mg Tablet) 40 mg PO QDAC [facility] Last Admin: 05/24/24 06:44 Dose: 40 mg Polyethylene Glycol (Polyethylene Glycol 3350 17 Gm Packet) 17 gm PO DAILY [facility] Last Admin: 05/24/24 07:24 Dose: Not Given Multivit/Folic Acid/Iron ( Vitamin Tablet) 1 tab PO DAILYWM [facility] Last Admin: 05/24/24 08:16 Dose: 1 tab Promethazine HCl (Promethazine 25 Mg Tablet) 25 mg PO Q6HR PRN PRN Reason: Nausea / Vomiting Last Admin: 05/23/24 09:05 Dose: 25 mg Sodium Chloride (Sodium Chloride Flush 0.9% 10 Ml Syringe) 10 ml IVP PRN PRN PRN Reason: NEEDED PER PROVIDER ORDERS Last Admin: 05/24/24 05:25 Dose: 10 ml Sodium Chloride (Sodium Chloride Flush 0.9% 10 Ml Syringe) 10 ml IVP 0100,0900,1700 [facility] Last Admin: 05/24/24 07:25 Dose: Not Given Thiamine HCl (Thiamine 100 Mg Tablet) 100 mg PO DAILY [facility] Last Admin: 05/24/24 08:16 Dose: 100 mg Omeprazole 20 mg PO DAILY 04/22/24 Ondansetron HCl 4 mg PO Q8H PRN 05/21/24 Prazosin [Minipress] 4 - 6 mg PO QPM PRN 05/21/24 Promethazine [Phenergan] 12.5 mg PO Q6H PRN 05/21/24 traMADol [Ultram] 50 mg PO Q4-6H PRN 05/21/24 Allergies/Adverse Reactions: Allergies Allergy/AdvReac Type Severity Reaction Status Date / Time doxycycline Allergy Unknown Verified 05/20/24 22:32 ibuprofen Allergy Emesis Verified 05/20/24 22:32 methotrexate Allergy Anxiety Verified 05/20/24 22:32 Penicillins Allergy Unknown Verified 05/20/24 22:32 prednisone Allergy Hallucinati Verified 05/20/24 22:32 ons abx Allergy Unknown Uncoded 05/20/24 22:32 Anes History & Medical History - Medical History Cardiovascular: reports: None Pulmonary: reports: None Gastrointestinal: reports: GERD Urinary: reports: Other Neuro: reports: None Musculoskeletal: reports: None Endocrine/Autoimmune: reports: None Blood Disorders: reports: None Skin: reports: None Smoking Status: Never smoker - Surgical History General: reports: Cholecystectomy Exam General: Alert, Oriented x3, Cooperative Dental: WNL Mouth Openin Fingerbreadth Mallampati classification: III Thyromental Distance: 4-6 cm Plan Anesthesia Type: General (Pt uses cannabis gummies frequently.) Consent for Procedure(s) Verified and Reviewed: Yes Code Status: Attempt Resuscitation ASA classification: 2-Mild systemic disease Is this case an emergency?: No
[2024-05-24] MEDS ORDERED: MORPHINE 2 MG/ML CARPUJECT IVP PRN (10:04)
[2024-05-24] MEDS ORDERED: ATROPINE ABBOJECT 1 MG/10 ML SYRINGE IVP PRN (10:04)
[2024-05-24] MEDS ORDERED: NALOXONE 0.4 MG/ML VIAL IVP PRN (10:04)
[2024-05-24] MEDS ORDERED: HYDROmorphone 0.5 MG/0.5 ML SYRINGE IVP PRN (10:04)
[2024-05-24] MEDS ORDERED: ePHEDrine 50 MG/ML VIAL IVP PRN (10:04)
[2024-05-24] MEDS: LACTATED RINGERS 1,000 ML IV SCH (11:06)
[2024-05-24] MEDS: ACETAMINOPHEN 1,000 MG/100 ML 1,000 MG/100 ML BAG IV SCH (11:06)
--- NOTE | 2024-05-24 11:26 | PROVIDER PROGRESS NOTE ---
Subjective - Prog Note Date Prog Note Date: 05/24/24 Prog Note Time: 11:25 - Subjective Pt reports feeling: Improved Subjective: The patient is resting in his bed. He had a difficult night overnight. He is continued to have nausea but is only vomited about 3-4 times since yesterday. He is awaiting going to the operating room today for cystoscopy. Currently NPO. Today he denies fever or chills. No chest pain or heart palpitations. He has ongoing nausea but has had no vomiting yet this morning however he is NPO. He has some abdominal pain diffusely. Continues to have flank pain bilaterally as well as significant pain in his pelvis and coccyx. He states that his anxiety and PTSD are out of control and he is asking if we have a counselor he can talk to during this hospitalization. He states that his anxiety and PTSD are out of control and he is asking if we have a counselor he can talk to during this hospitalization. He does have an outpatient counselor and I encouraged him to call our. Current Medications - Current Medications Current Medications: Acetaminophen 650 mg p.o. every 4 hours IV acetaminophen every 6 hours as needed pain Hydrocodone 5/325 mg 1 p.o. every 4 hours as needed pain Colace 100 mg daily Lovenox 40 mg subcu daily Gabapentin 300 mg p.o. twice daily Haldol 2 mg IV every 6 hours as needed agitation Dilaudid 0.5 mg IV every 4 hours as needed severe pain CIWA protocol with lorazepam Meloxicam 15 mg daily Reglan 5 mg IV every 6 hours as needed nausea and vomiting Zofran 4 mg IV every 4 hours as needed nausea and vomiting Protonix 40 mg daily vitamin daily Promethazine 25 mg p.o. every 6 hours as needed nausea and vomiting Objective - Vital Signs/Intake & Output Reviewed Vital Signs: Yes Vital Signs: Vital Signs x48h Temp Pulse Resp BP Pulse Ox 05/24/24 09:41 36.8 C 72 18 152/91 H 95 Intake & Output: Intake & Output 05/21/24 05/22/24 05/23/24 05/24/24 23:59 23:59 23:59 23:59 Intake Total 1431.2 1200 4350 1100 Output Total 801 120 750 Balance 630.2 1080 3600 1100 - Objective General Appearance: positive: Mild distress, Anxious Eyes Bilateral: positive: Normal inspection ENT: positive: ENT inspection nml Neck: positive: Nml inspection Respiratory: positive: Chest non-tender, No respiratory distress, Breath sounds nml Cardiovascular: positive: Regular rate & rhythm, No murmur, No gallop. negative: Friction rub Abdomen: positive: Tenderness (Mild tenderness to palpation diffusely. No rebound guarding or rigidity.) Skin: positive: Color nml, No rash, Warm Extremities: positive: Non-tender, Full ROM Neurologic/Psychiatric: positive: Oriented x3, CN's nml (2-12) - Lab Results Fish Bones: 05/24/24 05:31 05/24/24 05:31 Other Labs: Lab Results x24hrs 05/24/24 05/24/24 05/23/24 Range/Units 05:31 05:31 12:50 WBC 3.0 L (4.8-10.8) x10^3/uL RBC 3.47 L (4.70-6.10) 10^6/uL Hgb 11.9 L (14.0-18.0) g/dL Hct 35.8 L (42.0-52.0) % MCV 103.2 H (80.0-94.0) fL MCH 34.3 H (27.0-31.0) pg MCHC 33.2 (32.0-36.0) g/dL RDW 12.9 (12.0-15.0) % Plt Count 106 L (130-450) 10^3/uL MPV 10.9 (7.4-11.4) fL Neut # (Auto) 1.6 (1.5-6.6) 10^3/uL Lymph # (Auto) 0.9 L (1.5-3.5) 10^3/uL [place] # (Auto) 0.3 (0.0-1.0) 10^3/uL Eos # (Auto) 0.2 (0.0-0.7) 10^3/uL Baso # (Auto) 0.0 (0.0-0.1) 10^3/uL Absolute Nucleated RBC 0.00 x10^3/uL Nucleated RBC % 0.0 /100WBC Manual Slide Review Indicated Platelet Estimate NORMAL (130-450,000) (NORMAL) Platelet Morphology NORMAL APPEARANCE (NORMAL) Sodium 138 (135-145) mmol/L Potassium 3.7 (3.5-4.5) mmol/L Chloride 105 (101-111) mmol/L Carbon Dioxide 29 (21-32) mmol/L Anion Gap 4.0 L (6-13) BUN 6 (6-20) mg/dL Creatinine 0.6 (0.6-1.3) mg/dL Estimated GFR (MDRD) 134 (>89) Glucose 98 (74-104) mg/dL Calcium 8.6 (8.5-10.3) mg/dL Phosphorus 3.8 (2.5-5.0) mg/dL Magnesium 1.4 L (1.7-2.3) mg/dL Albumin 3.4 (3.2-5.5) g/dL Urine Color YELLOW Urine Clarity CLEAR (CLEAR) Urine pH 7.5 (5.0-7.5) PH Ur Specific [place] 1.015 (1.002-1.030) Urine Protein NEGATIVE (NEGATIVE) mg/dL Urine Glucose (UA) NEGATIVE (NEGATIVE) mg/dL Urine Ketones NEGATIVE (NEGATIVE) mg/dL Urine Occult Blood NEGATIVE (NEGATIVE) Urine Nitrite NEGATIVE (NEGATIVE) Urine Bilirubin NEGATIVE (NEGATIVE) Urine Urobilinogen 0.2 (NORMAL) (NORMAL) E.U./dL Ur Leukocyte Esterase NEGATIVE (NEGATIVE) Urine RBC None Seen (0-5) /HPF Urine WBC 0-3 (0-3) /HPF Ur Squamous Epith Cells NONE SEEN (<= Few) Urine Bacteria Few (None Seen) /HPF Urine Culture Comments NOT INDICATED ABX Reporting Has patient been on IV antibiotics over the past 48 hours?: No Assessment/Plan - Problem List (1) Hydronephrosis of right kidney Impression: The patient is going to the operating room today for cystoscopy. Plan of care per Dr. High (2) Pyelonephritis Impression: Continue 2 g of IV Rocephin daily. This is day #2 of treatment (3) Nephrolithiasis Impression: It is unclear whether these are just calcifications versus actual kidney stones. Dr. High will find out more information during cystoscopy. (4) Acute on chronic low back pain Impression: Due to fracture coccyx and bilateral pubic rami fractures. We are going to place him on scheduled IV Tylenol to try to minimize his narcotic usage. He will work with physical therapy and Occupational Therapy today. (5) Fractured coccyx Impression: Plan as above (6) Bilateral pubic rami fractures Impression: This was an incidental finding on CT scan. It certainly explains the severe pain that he has been having. Plan as outlined above (7) Intractable nausea and vomiting Impression: The patient is on scheduled IV red gland and has multiple antiemetics available including IV lorazepam for his alcohol withdrawal. He still is having significant nausea but he has not vomited as much over the past 24 hours. Continue to monitor. Currently n.p.o. for upcoming procedure (8) Alcohol use disorder Impression: The patient denies drinking alcohol on a regular basis however he does have evidence of alcohol withdrawal and diffuse fatty liver on imaging studies. Continue CIWA protocol for now (9) Alcohol withdrawal Impression: Improving. Continue CINV protocol (10) Marijuana use Impression: The patient states that he cannot afford to use marijuana Gummies on a regular basis. I do not think he has hyperemesis due to marijuana use. He uses Gummies occasionally for his anxiety and appetite (11) Hiatal hernia Impression: He is following with a physician at [facility]. I am changing his Protonix to 40 mg IV twice daily today. This is in light of his ongoing nausea and vomiting (12) GERD (gastroesophageal reflux disease) Impression: Plan as above (13) PTSD (post-traumatic stress disorder) Impression: The patient is having increasing worsening anxiety and requesting a counselor. Unfortunately we do not have any resources like that in this hospital. I have encouraged him to reach out to his outpatient counselor. Continue prazosin (14) Syncope Impression: No further episodes. This may be due to alcohol intoxication. No further workup unless he develops further symptoms (15) Constipation Impression: Continue bowel regimen. The patient had a good bowel movement yesterday after treatment (16) Ambulatory dysfunction Impression: The patient has ambulatory dysfunction due to his coccyx fracture and pubic rami fractures. Continue working with physical therapy and Occupational Therapy. He will require subacute rehabilitation prior to going home Disposition: Ongoing hospitalization remains necessary. The patient is going to the operating room today for cystoscopy. He continues to have nausea. He has not had as much vomiting but he has been n.p.o. so will need to see if we can successfully advance his diet. Timing of disposition will be determined by his clinical course Time spent: 25 minutes
[2024-05-24] MEDS ORDERED: fentaNYL 100 MCG/2 ML VIAL ONE ×2 (13:43→14:58)
[2024-05-24] MEDS ORDERED: PROPOFOL 200 MG/20 ML VIAL IVP ONE (13:43)
[2024-05-24] MEDS ORDERED: iohexoL-240 10 ML VIAL IVP ONE (13:51)
[2024-05-24] MEDS ORDERED: LIDOCAINE 2% URO-JET 5 ML SYRINGE UR ONE (13:52)
[2024-05-24] MEDS ORDERED: MIDAZOLAM 2 MG/2 ML VIAL ONE (13:55)
[2024-05-24] MEDS ORDERED: DEXAMETHASONE 4 MG/ML VIAL ONE (14:18)
[2024-05-24] MEDS ORDERED: ONDANSETRON 4 MG/2 ML VIAL ONE (14:19)
[2024-05-24] MEDS: LIDOCAINE 2% URO-JET 5 ML SYRINGE UR ONE (14:43)
[2024-05-24] MEDS: fentaNYL 100 MCG/2 ML VIAL IVP PRN (14:55)
[2024-05-24] MEDS: LACTATED RINGERS 100 ML IV ONE (15:12)
--- NOTE | 2024-05-24 15:55 | XRAY Report ---
PROCEDURE: OR C-Arm Procedure INDICATIONS: STENT PLACEMENT FLUORO TIME: 000.3 TECHNIQUE: Fluoroscopic guidance utilized for a stent placement COMPARISON: None. FINDINGS: Fluoroscopic guidance for a stent placement. IMPRESSION: Fluoroscopic guidance for a stent placement. Reviewed by: Giacomo Hinds MD on 05/24/2024 3:53 PM PDT Approved by: Giacomo Hinds MD on 05/24/2024 3:53 PM PDT Station ID: [id number]
--- NOTE | 2024-05-24 16:05 | OPERATIVE REPORT ---
Operative Report - General Admit Date: 05/22/24 Procedure Date: 05/24/24 Planned Procedure: Cystoscopy, urethral dilation, possible suprapubic tube, right ureteroscopy, laser lithotripsy, stent Pre-Op Diagnosis: Urethral stricture, right hydroureter Procedure Performed: Cystoscopy, urethral dilation, complex Eli placement, right ureteroscopy Post Op Diagnosis: Urethral stricture, right hydroureter - Procedure Note Primary Surgeon: Lennox Anesthesia Provider: SARI Maxwell Anesthesia Technique: General LMA Pathology: none Estimated Blood Loss (mL): 1 Findings: dense 8f stricture at bulbar urethra Large bladder Right hydroureter Complications: none - Other Other Information/Narrative: After informed sent was obtained the patient brought the OR and laid in supine position. The patient was anesthetized per anesthesia protocols and prepped draped in usual sterile fashion in the dorsolithotomy position. A timeout was performed reconfirming the patient, procedure and laterality. A 22 [place] scope was advanced easily to the bulbar urethra where a dense stricture was seen approximately 8 [place] in width. A sensor wire was placed through this under fluoroscopy into the bladder. An 8 [place] dilator was then placed the sensor wire was switched out for a Amplatz Super Stiff wire. With some effort this was dilated up to 24 [place]. A 22 [place] cystoscope was then advanced into the urinary bladder. He was noted very rigid scar tissue much like a wooden prostate. His bladder was enlarged but had normal mucosa. His ureteral orifices were orthotopic. A sensor wire was placed into the right ureter up into the kidney and this flexible ureteroscope was advanced up into the proximal ureter. The ureter was cleared under direct visualization and there were no stone seen. I suspect his hydroureter is related to his distended bladder. A 22 [place] tip catheter was placed over the Amplatz wire into the bladder. 10 cc placed in the balloon and this was left to gravity drainage. This concluded the procedure and the patient tolerated the procedure well. He will keep the catheter in place for 1 week's time. He will follow-up with me in 6 weeks time likely. All counts were correct he will return to medical service today
--- NOTE | 2024-05-24 17:15 | ANESTHESIA POST OP EVALUATION ---
Anesthesia Post Eval - Post Anesthesia Eval Vitals: Last Vital Signs Temp 36.4 C L 05/24/24 16:30 Pulse 65 05/24/24 16:30 Resp 16 05/24/24 16:30 BP 156/79 H 05/24/24 16:30 Pulse Ox 97 05/24/24 16:30 O2 Flow Rate CV Function Including HR & BP: Stable Pain Control: Satisfactory Nausea & Vomiting: Negative Mental Status: Baseline Respiratory Status: Airway Patent Hydration Status: Satisfactory Anesthesia Complications: None
[2024-05-24] MEDS: PANTOPRAZOLE 40 MG VIAL IV SCH (21:22)
[2024-05-25] MEDS ORDERED: SODIUM CHLORIDE 0.9% MINIBAG 100 ML IV ONE (08:00)
[2024-05-25] MEDS: MAGNESIUM SULFATE 2 GRAM 2 GM/50 ML BAG IV ONE (08:29)
[2024-05-25] MEDS: HALOPERIDOL 5 MG/ML VIAL IVP PRN (08:31)
--- NOTE | 2024-05-25 09:31 | PROVIDER PROGRESS NOTE ---
Subjective - General Admit Date: 05/22/24 Procedure Date: 05/24/24 Post Op Days: 1 Procedure Performed: cystoscopy, urethral dilation, complex palacio placement, right ureteroscopy - Review of Systems General: positive: No symptoms (no major issues overnight) All Other Systems: positive: Reviewed and negative Objective - Patient Data Reviewed Vital Signs: Yes Vital Signs: Vital Signs x48h Temp Pulse Resp BP Pulse Ox 05/25/24 07:34 36.5 C 77 18 143/87 H 99 05/25/24 04:16 36.5 C 67 18 117/64 95 Weight: Weight 05/23/24 05/24/24 05/25/24 23:59 23:59 23:59 Weight (kg) 76 kg Intake & Output: Intake and Output Totals x24h 05/23/24 05/24/24 05/25/24 23:59 23:59 23:59 Intake Total 4350 2055.333 1076.667 Output Total 750 1575 700 Balance 3600 480.333 376.667 - Lab Results Lab Results: 05/24/24 05:31 05/24/24 05:31 - Current Medications Current Medications: Current Medications Generic Name Dose Route Start Last Admin Trade Name Freq PRN Reason Stop Dose Admin Acetaminophen 650 mg 05/21/24 08:16 05/22/24 20:33 Acetaminophen 325 Mg Tablet PO 650 mg Q4HR PRN Administration Pain 1 to 4, or Fever Hydrocodone Bitart/Acetaminophen 1 tab 05/21/24 08:16 05/25/24 08:29 Hydrocod/Acetam 5/325 Mg Tablet PO 1 tab Q4HR PRN Administration Pain 5 to 7 Docusate Sodium 100 mg 05/23/24 21:00 05/25/24 08:30 Docusate Sodium 100 Mg Capsule PO 100 mg BID ROSA Administration Gabapentin 300 mg 05/21/24 09:00 05/25/24 08:31 Gabapentin 300 Mg Capsule PO 300 mg BID ROSA Administration Haloperidol 2 mg 05/21/24 18:01 05/25/24 08:31 Haloperidol 5 Mg/Ml Vial IVP 2 mg Q6H PRN Administration Agitation Hydromorphone HCl 0.5 mg 05/21/24 08:16 05/25/24 06:08 Hydromorphone 0.5 Mg/0.5 Ml Syringe IVP 0.5 mg Q4H PRN Administration Pain 8 to 10 Acetaminophen 1,000 mg in 100 mls @ 400 mls/hr 05/21/24 08:21 05/21/24 18:33 Acetaminophen IV Infused Q6HR PRN Infusion Moderate Pain (Level 4-6) Sodium Chloride 1,000 mls @ 100 mls/hr 05/23/24 11:00 05/25/24 01:45 Normal Saline 0.9% IV 100 mls/hr .Q10H ROSA Administration Ceftriaxone Sodium 2 gm/ 100 mls @ 200 mls/hr 05/23/24 13:00 05/24/24 11:10 Sodium Chloride IV Infused DAILY ROSA Infusion Acetaminophen 1,000 mg in 100 mls @ 400 mls/hr 05/24/24 11:00 05/25/24 00:09 Acetaminophen IV Infused Q6HR ROSA Infusion Lorazepam 1 mg 05/21/24 08:27 05/25/24 06:18 Lorazepam 2 Mg/Ml Vial IVP 1 mg Q30M PRN Administration CIWA >8 Protocol Metoclopramide HCl 5 mg 05/23/24 11:00 05/25/24 06:07 Metoclopramide 10 Mg/2 Ml Vial IVP 5 mg ACHS ROSA Administration Multi-Ingredient Mouthwash/Gargle 30 ml 05/22/24 09:41 05/22/24 14:10 Gi Cocktail 120 Ml Bottle PO 30 ml Q4H PRN Administration HEARTBURN Ondansetron HCl 4 mg 05/21/24 14:44 05/24/24 01:08 Ondansetron 4 Mg/2 Ml Vial IVP 4 mg Q4HR PRN Administration Nausea / Vomiting Pantoprazole Sodium 40 mg 05/24/24 21:00 05/25/24 08:29 Pantoprazole 40 Mg Vial IV 40 mg BID ROSA Administration Polyethylene Glycol 17 gm 05/23/24 09:00 05/25/24 08:31 Polyethylene Glycol 3350 17 Gm Packet PO 17 gm DAILY ROSA Administration Multivit/Folic Acid/Iron 1 tab 05/22/24 08:00 05/25/24 08:30 Vitamin Tablet PO 1 tab DAILYWM ROSA Administration Promethazine HCl 25 mg 05/21/24 14:44 05/23/24 09:05 Promethazine 25 Mg Tablet PO 25 mg Q6HR PRN Administration Nausea / Vomiting Sodium Chloride 10 ml 05/21/24 08:16 05/24/24 05:25 Sodium Chloride Flush 0.9% 10 Ml Syringe IVP 10 ml PRN PRN Administration NEEDED PER PROVIDER ORDERS Sodium Chloride 10 ml 05/21/24 09:00 05/25/24 06:08 Sodium Chloride Flush 0.9% 10 Ml Syringe IVP 10 ml 0100,0900,1700 ROSA Administration Thiamine HCl 100 mg 05/21/24 09:00 05/25/24 08:30 Thiamine 100 Mg Tablet PO 100 mg DAILY ROSA Administration ABX Reporting Has patient been on IV antibiotics over the past 48 hours?: No Impression/Plan - Problem List Problem List: Jose had his procedure and had a dense urethral stricture. I dilated this up. I was able to place a catheter. I evaluated his right ureter and found no evidence of stones or blockage. I suspect he just had reflux. It is unclear if this has had any measurable improvement in his nausea symptoms but he seems to be doing better. I recommend to keep the catheter in place for a week and he can remove it next Friday. He knows how to do this. I will have my office arrange follow-up with him in about 6 weeks
--- NOTE | 2024-05-25 14:27 | PROVIDER PROGRESS NOTE ---
Subjective - Prog Note Date Prog Note Date: 05/25/24 Prog Note Time: 14:25 - Subjective Pt reports feeling: Improved Subjective: Early this morning the nursing staff reported to me that the patient was significantly agitated and tearful. He was talking to his counselor online. He had received Ativan with no improvement. We gave him a dose of IV Haldol and everything settled down. I saw the patient this afternoon. He states that the Haldol worked amazingly well and he is wondering if he can have it tonight at bedtime. He said that it helped his mind from racing and he feels much better. He states he was able to take a nap and had not slept in several days and that he is feeling much better this afternoon. He also states that he has had absolutely no nausea and no vomiting. We are going to advance his diet today. I did discuss with the discharge planners to transition to subacute rehabilitation and they are working on getting him into 1 hopefully in the next day or 2. He denies fever or shaking chills. No chest pain or heart palpitations. No further episodes of nausea or vomiting. No abdominal pain. He has a Eli catheter in place. His anxiety is much better controlled this afternoon. Current Medications - Current Medications Current Medications: Acetaminophen 650 mg p.o. every 4 hours IV acetaminophen every 6 hours as needed pain Hydrocodone 5/325 mg 1 p.o. every 4 hours as needed pain Colace 100 mg daily Lovenox 40 mg subcu daily Gabapentin 300 mg p.o. twice daily Haldol 2 mg IV every 6 hours as needed agitation Dilaudid 0.5 mg IV every 4 hours as needed severe pain CIWA protocol with lorazepam Meloxicam 15 mg daily Reglan 5 mg IV every 6 hours as needed nausea and vomiting Zofran 4 mg IV every 4 hours as needed nausea and vomiting Protonix 40 mg daily vitamin daily Promethazine 25 mg p.o. every 6 hours as needed nausea and vomiting Objective - Vital Signs/Intake & Output Reviewed Vital Signs: Yes Vital Signs: Vital Signs x48h Temp Pulse Resp BP Pulse Ox 05/25/24 11:29 36.2 C L 70 18 125/70 95 05/25/24 07:34 36.5 C 77 18 143/87 H 99 Intake & Output: Intake & Output 07/20/05/23/24 05/24/24 05/25/24 23:59 23:59 23:59 23:59 Intake Total 1200 4350 2055.333 2556.667 Output Total 624 363 7151 1350 Balance 1080 3600 946.358 8252.667 - Objective General Appearance: positive: No acute distress, Anxious (Okay however his anxiety is much better controlled) Eyes Bilateral: positive: Normal inspection ENT: positive: ENT inspection nml Neck: positive: Nml inspection Respiratory: positive: Chest non-tender, No respiratory distress, Breath sounds nml Cardiovascular: positive: Regular rate & rhythm, No murmur, No gallop. negative: Friction rub Abdomen: positive: Non-tender, No organomegaly, Nml bowel sounds Skin: positive: Color nml, No rash, Warm, Dry Neurologic/Psychiatric: positive: Other (The patient is anxious however he is not tearful and his anxiety seems to be much better controlled) - Lab Results Fish Bones: 05/24/24 05:31 05/24/24 05:31 Assessment/Plan - Problem List (1) Hydronephrosis of right kidney Impression: He did not require stent placement yesterday. He did have a stricture in his urethra taken down and now has a Eli catheter in place. Hopefully this will improve. Certainly his nausea and vomiting has resolved. (2) Pyelonephritis Impression: Continue 2 g of IV Rocephin for now. (3) Nephrolithiasis Impression: Ruled out (4) Acute on chronic low back pain Impression: Continue current pain regimen (5) Fractured coccyx Impression: As above. Continue working with physical therapy and Occupational Therapy. He will pursue subacute rehabilitation at discharge (6) Bilateral pubic rami fractures Impression: As above (7) Intractable nausea and vomiting Impression: This could have been due to his hydronephrosis. He has had several days of intractable nausea and vomiting and he is not nauseated today and has not vomited since his cystoscopy yesterday. Will advance him back to a regular diet and see how he does. He has continued antiemetics available if needed. Also not sure if there was not a psychological reason for his nausea and vomiting. He seems to have responded beautifully to IV Haldol. (8) Alcohol use disorder Impression: The patient denies that he uses alcohol. He says that he only uses it when friends come over. Alcohol level was 376 when he came into the hospital. He has evidence of diffuse fatty liver disease on imaging study and I believe that he drinks a lot more than he says that he does (9) Alcohol withdrawal Impression: The patient was treated with CIWA protocol. Resolved. He did have evidence of withdrawal at the time of admission (10) Marijuana use Impression: The patient occasionally uses marijuana for appetite and anxiety. He states that he cannot afford to use it on a regular basis. I do not think that he had hyperemesis due to marijuana use (11) Hiatal hernia Impression: The patient was not on any PPI. He currently is on 40 mg of IV Protonix twice daily. Will likely change him over to p.o. if he can demonstrate that he can tolerate p.o. intake tomorrow. (13) PTSD (post-traumatic stress disorder) Impression: Patient responded beautifully to a one-time dose of IV Haldol. The patient has been increasingly anxious. Overnight he was calling his counselor all night and was panicking and tearful. This morning when I came in we gave him a one-time dose of IV Haldol and it worked beautifully. I am going to obtain a psychiatry consult to see if there is any maintenance medications I would recommend since the patient felt like he did so well with that. (14) Syncope Impression: I believe this was due to alcohol intoxication. No further workup unless he has further symptoms (15) Constipation Impression: Improved. Continue bowel regimen. He has been having bowel movements (16) Ambulatory dysfunction Impression: Continue to work with physical therapy and Occupational Therapy. He is pursuing subacute rehabilitation at discharge Disposition: The patient is finally improving. We are going to get a telepsych consult to see about maintenance medication for his severe anxiety and PTSD. We are going to advance his diet. I believe that he is stable and approaching maximum hospital benefit and likely will be ready to transition to subacute rehabilitation whenever a bed is found Time spent: 35 minutes
--- NOTE | 2024-05-26 08:36 | PROVIDER PROGRESS NOTE ---
Subjective - Prog Note Date Prog Note Date: 05/26/24 Prog Note Time: 08:35 - Subjective Subjective: The patient is resting in his bed. He is doing much better today. He is requesting a soft GI diet instead of a regular diet but overall has had no nausea or vomiting. He took some IV Haldol at bedtime last night and slept for the first time since he is came into the hospital. He thinks it is a miracle drug and is thankful that we may prescribe it at discharge. He states that he is feeling like he is ready to go to rehab. Today he denies fever or chills. No chest pain or heart palpitations. He has had no further episodes of nausea or vomiting. He has not yet had a bowel movement today. He remains with a Eli catheter in place Current Medications - Current Medications Current Medications: Acetaminophen 650 mg p.o. every 4 hours IV acetaminophen every 6 hours as needed pain Hydrocodone 5/325 mg 1 p.o. every 4 hours as needed pain Colace 100 mg daily Lovenox 40 mg subcu daily Gabapentin 300 mg p.o. twice daily Haldol 2 mg IV every 6 hours as needed agitation Dilaudid 0.5 mg IV every 4 hours as needed severe pain CIWA protocol with lorazepam Meloxicam 15 mg daily Reglan 5 mg IV every 6 hours as needed nausea and vomiting Zofran 4 mg IV every 4 hours as needed nausea and vomiting Protonix 40 mg daily vitamin daily Promethazine 25 mg p.o. every 6 hours as needed nausea and vomiting Objective - Vital Signs/Intake & Output Reviewed Vital Signs: Yes Vital Signs: Vital Signs x48h Temp Pulse Resp BP Pulse Ox 05/26/24 08:20 36.4 C L 79 18 141/84 H 97 05/26/24 05:07 76 16 135/76 H 95 05/26/24 01:08 37.2 C 81 16 147/86 H 97 Intake & Output: Intake & Output 05/23/24 05/24/24 05/25/24 05/26/24 23:59 23:59 23:59 23:59 Intake Total 4350 2055.333 3326.667 1000 Output Total 750 1575 2600 1050 Balance 3600 480.333 726.667 -50 - Objective General Appearance: positive: No acute distress, Anxious (However his anxiety is much better controlled than it has been previously) Eyes Bilateral: positive: Normal inspection ENT: positive: ENT inspection nml Neck: positive: Nml inspection Respiratory: positive: Chest non-tender, No respiratory distress, Breath sounds nml Cardiovascular: positive: Regular rate & rhythm, No murmur, No gallop. negative: Friction rub Abdomen: positive: Non-tender Skin: positive: Color nml, No rash, Warm, Dry Extremities: positive: Non-tender, Full ROM Neurologic/Psychiatric: positive: Oriented x3, CN's nml (2-12), Other (He remains somewhat anxious but greatly improved since the time of admission) - Lab Results Fish Bones: 05/24/24 05:31 05/24/24 05:31 Assessment/Plan - Problem List (1) Hydronephrosis of right kidney Impression: Status post cystoscopy. He did not require stent placement. The stricture in his urethra was taken down currently with a Eli catheter in place. Patient is feeling much better with less nausea and vomiting since the procedure (2) Pyelonephritis Impression: He has been receiving 2 g of IV Rocephin. Will change him over to an oral regimen with cefpodoxime 100 mg twice daily for now. (3) Nephrolithiasis Impression: This was actually ruled out. They were benign calcifications (4) Acute on chronic low back pain Impression: I would like the nursing staff to avoid giving him IV Dilaudid. I have ordered p.o. hydromorphone for the patient that I would like to try. Will also place him on scheduled p.o. Tylenol as well. (5) Fractured coccyx Impression: Plan as outlined above. Continue to work with physical therapy and Occupational Therapy. Currently awaiting subacute rehabilitation (6) Bilateral pubic rami fractures Impression: As above (7) Intractable nausea and vomiting Impression: Possibly due to his hydronephrosis and pyelonephritis. Improving (8) Alcohol use disorder Impression: The patient still denies using alcohol on a regular basis although his alcohol level was 376 at the time of admission. Would recommend abstaining from alcohol going forward. Perhaps the p.o. Haldol were going to place him on will help (9) Alcohol withdrawal Impression: Resolved (10) Marijuana use Impression: Occasional marijuana use for his anxiety and appetite (11) Hiatal hernia Impression: I will change his IV Protonix to p.o. Protonix twice daily for now. (12) GERD (gastroesophageal reflux disease) Impression: I given him changing his IV Protonix to p.o. Protonix today. (13) PTSD (post-traumatic stress disorder) Impression: The patient has severe PTSD and anxiety. He responded beautifully to IV Haldol. I spoke to telepsych yesterday who recommended when he gets out of the hospital to write a prescription for Haldol 2 mg p.o. twice daily as needed. For now I am going to order 2 mg of by mouth Haldol at bedtime. He will continue to have IV Haldol available for severe agitation. (14) Syncope Impression: I believe this was likely due to alcohol intoxication. No further workup unless he develops further symptoms (15) Constipation Impression: He finally had a good bowel movement. Continue bowel regimen in light of his narcotic use (16) Ambulatory dysfunction Impression: The patient has difficulty ambulating due to his pubic ramus fractures and coccyx fracture. Continue to work with physical therapy and Occupational Therapy. He is currently awaiting placement for subacute rehabilitation Disposition: Overall I am changing the patient over to an oral regimen of medications today. He is stable for transfer to rehab as soon as a bed is found Time spent: 35 minutes
[2024-05-26] MEDS: HYDROmorphone 2 MG TABLET PO PRN ×2 (08:48→18:54)
[2024-05-26] MEDS ORDERED: CEFPODOXIME PROXETIL 100 MG TABLET PO SCH (09:00)
[2024-05-26] MEDS: PANTOPRAZOLE 40 MG TABLET PO SCH (10:41)
[2024-05-26] MEDS: ACETAMINOPHEN 500 MG TABLET PO SCH (10:48)
[2024-05-26] MEDS: LIDOCAINE JELLY 2% 6 ML JEL.PF.APP TOP ONE (14:47)
[2024-05-26] MEDS: MAGNESIUM SULFATE 2 GRAM 2 GM/50 ML BAG IV ONE (21:29)
[2024-05-26] MEDS: haloperidoL 1 MG TABLET PO SCH (21:29)
[2024-05-27 05:50] LABS: BASOPHILS % (AUTO) 0.7 %; EOSINOPHILS # (AUTO) 0.3 10^3/uL (0.0-0.7); EOSINOPHILS % (AUTO) 6.1 %; HCT - HEMATOCRIT 35.3 % (42.0-52.0); HGB - HEMOGLOBIN 12.2 g/dL (14.0-18.0); LYMPHOCYTES # (AUTO) 1.1 10^3/uL (1.5-3.5); LYMPHOCYTES % (AUTO) 27.2 %; MEAN CORPUSCULAR HEMOGLOBIN 34.8 pg (27.0-31.0); MEAN CORPUSCULAR HGB CONC 34.6 g/dL (32.0-36.0); MEAN CORPUSCULAR VOLUME 100.6 fL (80.0-94.0); MEAN PLATELET VOLUME 10.3 fL (7.4-11.4); MONOCYTES # (AUTO) 0.4 10^3/uL (0.0-1.0); MONOCYTES % (AUTO) 10.7 %; NEUTROPHILS # (AUTO) 2.3 10^3/uL (1.5-6.6); NEUTROPHILS % (AUTO) 55.1 %; PLT - PLATELET COUNT 115 10^3/uL (130-450); RED BLOOD COUNT 3.51 10^6/uL (4.70-6.10); RED CELL DISTRIBUTION WIDTH 13.2 % (12.0-15.0); WHITE BLOOD COUNT 4.1 x10^3/uL (4.8-10.8)
[2024-05-27 05:56] LABS: ALBUMIN 3.2 g/dL (3.2-5.5); MAGNESIUM 1.8 mg/dL (1.7-2.3)
[2024-05-27 06:01] LABS: CALCIUM 8.9 mg/dL (8.5-10.3); CREATININE 0.5 mg/dL (0.6-1.3); PHOSPHORUS 4.7 mg/dL (2.5-5.0); POTASSIUM 4.2 mmol/L (3.5-4.5)
[2024-05-27] MEDS: CEFPODOXIME PROXETIL 100 MG TABLET PO SCH (08:15)
[2024-05-27] MEDS: LORazepam 1 MG TABLET PO PRN (09:30)
--- NOTE | 2024-05-27 11:59 | PROVIDER PROGRESS NOTE ---
Subjective - Prog Note Date Prog Note Date: 05/27/24 Prog Note Time: 12:00 - Subjective Pt reports feeling: No change Subjective: The patient had a difficult night last night. He states he had technical or nightmares after he took the Haldol. It has him quite shook up this morning. He also took all of his medications after drinking tea and eating watermelon and had an episode of vomiting. He is feeling a little nauseated at the time of my visit. Otherwise he does feel like he is much improved. Fever or chills. No chest pain or heart palpitations. Nausea and vomiting still present but greatly improved. No urinary complaints Current Medications - Current Medications Current Medications: Acetaminophen 650 mg p.o. every 4 hours IV acetaminophen every 6 hours as needed pain Hydrocodone 5/325 mg 1 p.o. every 4 hours as needed pain Colace 100 mg daily Lovenox 40 mg subcu daily Gabapentin 300 mg p.o. twice daily Haldol 2 mg IV every 6 hours as needed agitation Dilaudid 0.5 mg IV every 4 hours as needed severe pain CIWA protocol with lorazepam Meloxicam 15 mg daily Reglan 5 mg IV every 6 hours as needed nausea and vomiting Zofran 4 mg IV every 4 hours as needed nausea and vomiting Protonix 40 mg daily vitamin daily Promethazine 25 mg p.o. every 6 hours as needed nausea and vomiting Objective - Vital Signs/Intake & Output Vital Signs: Vital Signs x48h Temp Pulse Resp BP Pulse Ox 05/27/24 07:59 36.4 C L 63 18 144/80 H 98 Intake & Output: Intake & Output 05/24/24 05/25/24 05/26/24 05/27/24 23:59 23:59 23:59 23:59 Intake Total 2055.333 3326.667 3870 700 Output Total 1575 2600 3275 1700 Balance 480.333 726.667 595 -1000 - Objective General Appearance: positive: Mild distress, Anxious Eyes Bilateral: positive: Normal inspection ENT: positive: ENT inspection nml Neck: positive: Nml inspection Respiratory: positive: Chest non-tender, No respiratory distress, Breath sounds nml. negative: Wheezes, Rales, Rhonchi Cardiovascular: positive: Regular rate & rhythm, No murmur, No gallop. negative: Friction rub Abdomen: positive: Non-tender, No organomegaly, Nml bowel sounds Skin: positive: Color nml, No rash, Warm, Dry Neurologic/Psychiatric: positive: Oriented x3, CN's nml (2-12) - Lab Results Fish Bones: 05/27/24 05:35 05/27/24 05:35 Other Labs: Lab Results x24hrs 05/27/24 05/27/24 Range/Units 05:35 05:35 WBC 4.1 L (4.8-10.8) x10^3/uL RBC 3.51 L (4.70-6.10) 10^6/uL Hgb 12.2 L (14.0-18.0) g/dL Hct 35.3 L (42.0-52.0) % MCV 100.6 H (80.0-94.0) fL MCH 34.8 H (27.0-31.0) pg MCHC 34.6 (32.0-36.0) g/dL RDW 13.2 (12.0-15.0) % Plt Count 115 L (130-450) 10^3/uL MPV 10.3 (7.4-11.4) fL Neut # (Auto) 2.3 (1.5-6.6) 10^3/uL Lymph # (Auto) 1.1 L (1.5-3.5) 10^3/uL [place] # (Auto) 0.4 (0.0-1.0) 10^3/uL Eos # (Auto) 0.3 (0.0-0.7) 10^3/uL Baso # (Auto) 0.0 (0.0-0.1) 10^3/uL Absolute Nucleated RBC 0.00 x10^3/uL Nucleated RBC % 0.0 /100WBC Sodium 137 (135-145) mmol/L Potassium 4.2 (3.5-4.5) mmol/L Chloride 104 (101-111) mmol/L Carbon Dioxide 29 (21-32) mmol/L Anion Gap 4.0 L (6-13) BUN 6 (6-20) mg/dL Creatinine 0.5 L (0.6-1.3) mg/dL Estimated GFR (MDRD) 165 (>89) Glucose 98 (74-104) mg/dL Calcium 8.9 (8.5-10.3) mg/dL Phosphorus 4.7 (2.5-5.0) mg/dL Magnesium 1.8 (1.7-2.3) mg/dL Albumin 3.2 (3.2-5.5) g/dL Assessment/Plan - Problem List (1) Hydronephrosis of right kidney Impression: He did not require stent placement. He did have takedown of stricture in the urethra and has a Eli catheter in place. Improving (2) Pyelonephritis Impression: He has been changed over to p.o. cefpodoxime for now. He seems to be tolerating (3) Acute on chronic low back pain Impression: He has been changed over to an oral regimen of medication and is not complaining of severe pain today. (4) Fractured coccyx Impression: Continue to work with physical therapy and Occupational Therapy. He is currently awaiting subacute rehabilitation. According to the discharge planners he possibly will be able to go as early as tomorrow. (5) Bilateral pubic rami fractures Impression: As above (6) Intractable nausea and vomiting Impression: His nausea and vomiting syndrome much better controlled. He did have an episode of vomiting this morning after taking pills on a relatively empty stomach. He has antiemetics available as needed (7) Alcohol use disorder Impression: The patient denies that he has a problem drinking. However his alcohol level was 376 when he came into the hospital. I believe it is more untreated PTSD. We are trying to get his anxiety under better control. Will try some p.o. Seroquel at bedtime tonight. (8) Alcohol withdrawal Impression: Resolved. This was mild. (9) Marijuana use Impression: He only occasionally uses marijuana for appetite and anxiety (11) GERD (gastroesophageal reflux disease) Impression: I have changed him to twice daily PPI (12) PTSD (post-traumatic stress disorder) Impression: Continue prazosin. He did not like the Haldol last night. We will try Seroquel at bedtime tonight and see how that goes (13) Syncope Impression: I believe this was due to acute intoxication. No further workup unless he has further symptoms (14) Constipation Impression: Resolved. Continue bowel regimen (15) Ambulatory dysfunction Impression: Continue to work with physical therapy and Occupational Therapy. He has ambulatory dysfunction due to his coccyx fracture from pubic ramus fractures. He will be pursuing subacute rehabilitation with possible discharge tomorrow Disposition: Inpatient hospitalization remains necessary for placement in a correction facility for rehabilitation. He is stable for transfer whenever a bed is found. Time spent: 35 minutes
[2024-05-27] MEDS: QUEtiapine 100 MG TABLET PO SCH (21:45)
[2024-05-28 05:44] LABS: BASOPHILS % (AUTO) 0.8 %; EOSINOPHILS # (AUTO) 0.3 10^3/uL (0.0-0.7); EOSINOPHILS % (AUTO) 6.3 %; HCT - HEMATOCRIT 37.5 % (42.0-52.0); HGB - HEMOGLOBIN 12.4 g/dL (14.0-18.0); LYMPHOCYTES # (AUTO) 1.3 10^3/uL (1.5-3.5); LYMPHOCYTES % (AUTO) 32.1 %; MEAN CORPUSCULAR HEMOGLOBIN 33.6 pg (27.0-31.0); MEAN CORPUSCULAR HGB CONC 33.1 g/dL (32.0-36.0); MEAN CORPUSCULAR VOLUME 101.6 fL (80.0-94.0); MEAN PLATELET VOLUME 10.7 fL (7.4-11.4); MONOCYTES # (AUTO) 0.4 10^3/uL (0.0-1.0); MONOCYTES % (AUTO) 9.8 %; NEUTROPHILS % (AUTO) 50.7 %; PLT - PLATELET COUNT 123 10^3/uL (130-450); RED BLOOD COUNT 3.69 10^6/uL (4.70-6.10)
[2024-05-28 06:00] LABS: ALBUMIN 3.5 g/dL (3.2-5.5); CALCIUM 9.3 mg/dL (8.5-10.3); CREATININE 0.5 mg/dL (0.6-1.3); MAGNESIUM 1.6 mg/dL (1.7-2.3); PHOSPHORUS 4.9 mg/dL (2.5-5.0); POTASSIUM 4.1 mmol/L (3.5-4.5)
[2024-05-28] MEDS: MAGNESIUM OXIDE 400 MG TABLET PO SCH (08:55)
[2024-05-28] MEDS ORDERED: CEFPODOXIME PROXETIL 100 MG TABLET PO SCH (09:07)
[2024-05-28] MEDS: CEFPODOXIME PROXETIL 100 MG TABLET PO ONE (10:49)
--- NOTE | 2024-05-28 13:15 | PROVIDER PROGRESS NOTE ---
Subjective - Prog Note Date Prog Note Date: 05/28/24 Prog Note Time: 13:15 - Subjective Subjective: The patient is resting in his bed. Seroquel worked quite well for him last night and he slept well and did not have any nightmares. Currently awaiting [facility] for subacute rehabilitation. He is tolerating his diet today and has had no further episodes of nausea or vomiting. Objective - Vital Signs/Intake & Output Reviewed Vital Signs: Yes Vital Signs: Vital Signs x48h Temp Pulse Resp BP Pulse Ox 05/28/24 10:00 36.4 C L 77 18 123/64 97 Intake & Output: Intake & Output 05/25/24 05/26/24 05/27/24 05/28/24 23:59 23:59 23:59 23:59 Intake Total 3326.667 3870 2420 490 Output Total 2600 3275 3575 2325 Balance 726.667 290 -7107 -4865 - Objective General Appearance: positive: No acute distress Eyes Bilateral: positive: Normal inspection ENT: positive: ENT inspection nml Neck: positive: Nml inspection Respiratory: positive: Chest non-tender, No respiratory distress, Breath sounds nml Cardiovascular: positive: Regular rate & rhythm, No murmur, No gallop. negative: Friction rub Abdomen: positive: Non-tender, No organomegaly, Nml bowel sounds, No distention Skin: positive: Color nml, No rash, Warm, Dry Extremities: positive: Non-tender, Full ROM Neurologic/Psychiatric: positive: Oriented x3, CN's nml (2-12) - Lab Results Fish Bones: 05/28/24 05:26 05/28/24 05:26 Other Labs: Lab Results x24hrs 05/28/24 05/28/24 Range/Units 05:26 05:26 WBC 4.0 L (4.8-10.8) x10^3/uL RBC 3.69 L (4.70-6.10) 10^6/uL Hgb 12.4 L (14.0-18.0) g/dL Hct 37.5 L (42.0-52.0) % MCV 101.6 H (80.0-94.0) fL MCH 33.6 H (27.0-31.0) pg MCHC 33.1 (32.0-36.0) g/dL RDW 13.0 (12.0-15.0) % Plt Count 123 L (130-450) 10^3/uL MPV 10.7 (7.4-11.4) fL Neut # (Auto) 2.0 (1.5-6.6) 10^3/uL Lymph # (Auto) 1.3 L (1.5-3.5) 10^3/uL [place] # (Auto) 0.4 (0.0-1.0) 10^3/uL Eos # (Auto) 0.3 (0.0-0.7) 10^3/uL Baso # (Auto) 0.0 (0.0-0.1) 10^3/uL Absolute Nucleated RBC 0.00 x10^3/uL Nucleated RBC % 0.0 /100WBC Sodium 136 (135-145) mmol/L Potassium 4.1 (3.5-4.5) mmol/L Chloride 101 (101-111) mmol/L Carbon Dioxide 30 (21-32) mmol/L Anion Gap 5.0 L (6-13) BUN 7 (6-20) mg/dL Creatinine 0.5 L (0.6-1.3) mg/dL Estimated GFR (MDRD) 165 (>89) Glucose 106 H (74-104) mg/dL Calcium 9.3 (8.5-10.3) mg/dL Phosphorus 4.9 (2.5-5.0) mg/dL Magnesium 1.6 L (1.7-2.3) mg/dL Albumin 3.5 (3.2-5.5) g/dL Assessment/Plan - Problem List (1) Hydronephrosis of right kidney Impression: Status post cystoscopy. He did not require stent placement. However the s tricture in his urethra was taken down and he has a Eli catheter in place. This is improved (2) Pyelonephritis Impression: He has been transitioned over to cefpodoxime. (3) Acute on chronic low back pain Impression: Stable on current regimen (4) Fractured coccyx Impression: Continue to work with physical therapy and Occupational Therapy. He is awaiting subacute rehabilitation (5) Bilateral pubic rami fractures Impression: As above (6) Intractable nausea and vomiting Impression: Much improved. Continue p.o. Reglan (7) Alcohol use disorder Impression: The patient denies heavy alcohol use however his alcohol level on admission was 376 and he had mild alcohol withdrawal. The recommendation would be to abstain (8) Alcohol withdrawal Impression: Resolved (9) Marijuana use Impression: He uses this for appetite and for anxiety on occasion. He cannot afford to use it on a regular basis. (10) Hiatal hernia Impression: Continue PEEP continue twice daily Protonix (11) GERD (gastroesophageal reflux disease) Impression: As above (12) PTSD (post-traumatic stress disorder) Impression: Continue Seroquel at night and prazosin (13) Syncope Impression: Likely due to alcohol intoxication. No further workup unless he develops further symptoms (14) Constipation Impression: Continue bowel regimen. He has had a bowel movement and this is resolved (15) Ambulatory dysfunction Impression: Continue to work with physical therapy and Occupational Therapy. He is awaiting subacute rehabilitation Disposition: The patient is currently waiting on subacute rehabilitation. He will be transferred to a facility whenever a bed is found. He is medically cleared for discharge at this time Time spent: 35 minutes
[2024-05-28] MEDS: CEFPODOXIME PROXETIL 100 MG TABLET PO SCH (22:40)
[2024-05-29 06:43] LABS: ALBUMIN 3.6 g/dL (3.2-5.5); CALCIUM 9.3 mg/dL (8.5-10.3); CREATININE 0.6 mg/dL (0.6-1.3); MAGNESIUM 1.8 mg/dL (1.7-2.3); PHOSPHORUS 4.9 mg/dL (2.5-5.0); POTASSIUM 4.3 mmol/L (3.5-4.5)
[2024-05-29 07:40] LABS: BASOPHILS # (AUTO) 0.1 10^3/uL (0.0-0.1); BASOPHILS % (AUTO) 1.3 %; EOSINOPHILS # (AUTO) 0.3 10^3/uL (0.0-0.7); EOSINOPHILS % (AUTO) 6.9 %; HCT - HEMATOCRIT 39.8 % (42.0-52.0); LYMPHOCYTES # (AUTO) 1.2 10^3/uL (1.5-3.5); LYMPHOCYTES % (AUTO) 31.2 %; MEAN CORPUSCULAR HEMOGLOBIN 33.8 pg (27.0-31.0); MEAN CORPUSCULAR HGB CONC 32.7 g/dL (32.0-36.0); MEAN CORPUSCULAR VOLUME 103.4 fL (80.0-94.0); MEAN PLATELET VOLUME 11.3 fL (7.4-11.4); MONOCYTES # (AUTO) 0.6 10^3/uL (0.0-1.0); MONOCYTES % (AUTO) 15.2 %; NEUTROPHILS # (AUTO) 1.7 10^3/uL (1.5-6.6); NEUTROPHILS % (AUTO) 45.4 %; PLT - PLATELET COUNT 135 10^3/uL (130-450); RED BLOOD COUNT 3.85 10^6/uL (4.70-6.10); RED CELL DISTRIBUTION WIDTH 13.1 % (12.0-15.0); WHITE BLOOD COUNT 3.8 x10^3/uL (4.8-10.8)
--- NOTE | 2024-05-29 11:45 | PROVIDER PROGRESS NOTE ---
Subjective - Prog Note Date Prog Note Date: 05/29/24 Prog Note Time: 11:45 - Subjective Subjective: The patient is resting in his bed. He said he did not sleep as well last night but did not have any nightmares. He denies fever or chills. No chest pain or heart palpitations. He said no evidence of nausea or vomiting this morning. No abdominal pain. He remains with Eli catheter in place. Current Medications - Current Medications Current Medications: Active Medications Acetaminophen (Acetaminophen 500 Mg Tablet) 1,000 mg PO Q6H [facility] Last Admin: 05/29/24 08:35 Dose: 1,000 mg Cefuroxime Axetil (Cefpodoxime Proxetil 100 Mg Tablet) 200 mg PO BID [facility] Stop: 06/01/24 22:00 Last Admin: 05/29/24 08:34 Dose: 200 mg Docusate Sodium (Docusate Sodium 100 Mg Capsule) 100 mg PO BID [facility] Last Admin: 05/29/24 08:34 Dose: 100 mg Gabapentin (Gabapentin 300 Mg Capsule) 300 mg PO BID [facility] Last Admin: 05/29/24 08:35 Dose: 300 mg Hydromorphone HCl (Hydromorphone 2 Mg Tablet) 2 mg PO Q4H PRN PRN Reason: Severe Pain (Level 7-10) Last Admin: 05/29/24 08:35 Dose: 2 mg Lorazepam (Lorazepam 1 Mg Tablet) 1 mg PO Q6H PRN PRN Reason: Anxiety Last Admin: 05/29/24 06:50 Dose: 1 mg Magnesium Oxide (Magnesium Oxide 400 Mg Tablet) 400 mg PO BID [facility] Last Admin: 05/29/24 08:35 Dose: 400 mg Multi-Ingredient Mouthwash/Gargle (Gi Cocktail 120 Ml Bottle) 30 ml PO Q4H PRN PRN Reason: HEARTBURN Last Admin: 05/22/24 14:10 Dose: 30 ml Ondansetron HCl (Ondansetron 4 Mg/2 Ml Vial) 4 mg IVP Q4HR PRN PRN Reason: Nausea / Vomiting Last Admin: 05/29/24 06:50 Dose: 4 mg Pantoprazole Sodium (Pantoprazole 40 Mg Tablet) 40 mg PO BID [facility] Last Admin: 05/29/24 08:34 Dose: 40 mg Polyethylene Glycol (Polyethylene Glycol 3350 17 Gm Packet) 17 gm PO DAILY [facility] Last Admin: 05/29/24 08:36 Dose: Not Given Prazosin HCl (Prazosin 1 Mg Capsule) 4 mg PO QPM PRN PRN Reason: Insomnia Multivit/Folic Acid/Iron ( Vitamin Tablet) 1 tab PO DAILYWM S Last Admin: 05/29/24 08:36 Dose: 1 tab Promethazine HCl (Promethazine 25 Mg Tablet) 25 mg PO Q6HR PRN PRN Reason: Nausea / Vomiting Last Admin: 05/29/24 11:12 Dose: 25 mg Quetiapine Fumarate (Quetiapine 100 Mg Tablet) 100 mg PO QPM [facility] Last Admin: 05/28/24 22:41 Dose: 100 mg Sodium Chloride (Sodium Chloride Flush 0.9% 10 Ml Syringe) 10 ml IVP PRN PRN PRN Reason: NEEDED PER PROVIDER ORDERS Last Admin: 05/29/24 06:50 Dose: 10 ml Sodium Chloride (Sodium Chloride Flush 0.9% 10 Ml Syringe) 10 ml IVP 0100,0900,1700 [facility] Last Admin: 05/29/24 08:36 Dose: 10 ml Thiamine HCl (Thiamine 100 Mg Tablet) 100 mg PO DAILY [facility] Last Admin: 05/29/24 08:35 Dose: 100 mg Home meds: Omeprazole 20 mg PO DAILY 04/22/24 Ondansetron HCl 4 mg PO Q8H PRN 05/21/24 Prazosin [Minipress] 4 - 6 mg PO QPM PRN 05/21/24 Promethazine [Phenergan] 12.5 mg PO Q6H PRN 05/21/24 traMADol [Ultram] 50 mg PO Q4-6H PRN 05/21/24 Objective - Vital Signs/Intake & Output Reviewed Vital Signs: Yes Vital Signs: Vital Signs x48h Temp Pulse Resp BP Pulse Ox 05/29/24 07:53 36.8 C 75 18 127/70 97 Intake & Output: Intake & Output 05/26/24 05/27/24 05/28/24 05/29/24 23:59 23:59 23:59 23:59 Intake Total 3870 2420 2170 420 Output Total 9418 3704 3978 9591 Balance 317 -9369 -1331 -0759 - Objective General Appearance: positive: No acute distress, Alert Eyes Bilateral: positive: Normal inspection ENT: positive: ENT inspection nml Neck: positive: Nml inspection Respiratory: positive: Chest non-tender, No respiratory distress Cardiovascular: positive: Regular rate & rhythm, No murmur, No gallop. negative: Friction rub Abdomen: positive: Non-tender Skin: positive: Color nml, No rash, Warm, Dry Extremities: positive: Non-tender Neurologic/Psychiatric: positive: Oriented x3, CN's nml (2-12) - Lab Results Fish Bones: 05/29/24 06:57 05/29/24 06:03 Other Labs: Lab Results x24hrs 05/29/24 05/29/24 Range/Units 06:57 06:03 WBC 3.8 L (4.8-10.8) x10^3/uL RBC 3.85 L (4.70-6.10) 10^6/uL Hgb 13.0 L (14.0-18.0) g/dL Hct 39.8 L (42.0-52.0) % MCV 103.4 H (80.0-94.0) fL MCH 33.8 H (27.0-31.0) pg MCHC 32.7 (32.0-36.0) g/dL RDW 13.1 (12.0-15.0) % Plt Count 135 (130-450) 10^3/uL MPV 11.3 (7.4-11.4) fL Neut # (Auto) 1.7 (1.5-6.6) 10^3/uL Lymph # (Auto) 1.2 L (1.5-3.5) 10^3/uL [place] # (Auto) 0.6 (0.0-1.0) 10^3/uL Eos # (Auto) 0.3 (0.0-0.7) 10^3/uL Baso # (Auto) 0.1 (0.0-0.1) 10^3/uL Absolute Nucleated RBC 0.00 x10^3/uL Nucleated RBC % 0.0 /100WBC Sodium 135 (135-145) mmol/L Potassium 4.3 (3.5-4.5) mmol/L Chloride 100 L (101-111) mmol/L Carbon Dioxide 29 (21-32) mmol/L Anion Gap 6.0 (6-13) BUN 12 (6-20) mg/dL Creatinine 0.6 (0.6-1.3) mg/dL Estimated GFR (MDRD) 134 (>89) Glucose 106 H (74-104) mg/dL Calcium 9.3 (8.5-10.3) mg/dL Phosphorus 4.9 (2.5-5.0) mg/dL Magnesium 1.8 (1.7-2.3) mg/dL Albumin 3.6 (3.2-5.5) g/dL Assessment/Plan - Problem List (1) Hydronephrosis of right kidney Impression: The patient did not have a stent placed but did have a stricture in his urethra taken down. Improving. Nausea and vomiting are greatly improved after his procedure (2) Pyelonephritis Impression: He has been changed over to p.o. cefpodoxime. He will complete a 10-day course of treatment (3) Acute on chronic low back pain Impression: Pain is stable on scheduled Tylenol. He has p.o. hydromorphone available for breakthrough pain. (4) Fractured coccyx Impression: As above (5) Bilateral pubic rami fractures Impression: As above (6) Intractable nausea and vomiting Impression: Likely multifactorial. However his intractable nausea and vomiting stopped after he had his cystoscopy and was treated for pyelonephritis. Much improved at this point. He has antiemetics available as needed (7) Alcohol use disorder Impression: The patient denies that he has any issues with drinking. His alcohol level was 376 when he came into the hospital. Would recommend abstinence going forward. (8) Alcohol withdrawal Impression: Resolved. (9) Marijuana use Impression: He only uses this occasionally for appetite and anxiety. I do not believe that this was the cause of his intractable nausea and vomiting (10) Hiatal hernia Impression: Continue Protonix 40 mg p.o. twice daily (11) GERD (gastroesophageal reflux disease) Impression: As above (12) PTSD (post-traumatic stress disorder) Impression: The patient has significant anxiety and issues with PTSD. He has been taking Seroquel 100 mg at night and he is sleeping much better. He said he did wake up at last night and have trouble going back to sleep but he was not having nightmares. Also continue prazosin (13) Syncope Impression: No further workup. I believe this was due to alcohol intoxication at the time of admission (14) Constipation Impression: Resolved. Continue bowel regimen (15) Ambulatory dysfunction Impression: Continue to work with physical therapy and Occupational Therapy. He is pursuing subacute rehabilitation at discharge Disposition: The patient is remaining in inpatient in the hospital as we are waiting for a bed to become available for subacute rehabilitation. He is medically cleared for discharge as soon as a bed is found. Time spent: 35 minutes
[2024-05-29] MEDS: ONDANSETRON ODT 4 MG TABLET TL PRN (16:53)
--- NOTE | 2024-05-30 10:06 | PROVIDER PROGRESS NOTE ---
Subjective - Prog Note Date Prog Note Date: 05/30/24 Prog Note Time: 10:05 - Subjective Pt reports feeling: Improved Subjective: The patient is sitting up on the side of the bed. He is tolerating his diet. He slept well last night and is doing quite well. He is currently waiting on placement for subacute rehabilitation. Today he denies fever or chills. No chest pain, shortness of breath or cough. No nausea vomiting or diarrhea. Still with pain That is adequately controlled on the current regimen. He still has a Eli catheter in place that will be removed tomorrow morning. Current Medications - Current Medications Current Medications: Active Medications Acetaminophen (Acetaminophen 500 Mg Tablet) 1,000 mg PO Q6H [facility] Last Admin: 05/30/24 09:30 Dose: 1,000 mg Cefuroxime Axetil (Cefpodoxime Proxetil 100 Mg Tablet) 200 mg PO BID [facility] Stop: 06/01/24 22:00 Last Admin: 05/30/24 08:58 Dose: 200 mg Docusate Sodium (Docusate Sodium 100 Mg Capsule) 100 mg PO BID [facility] Last Admin: 05/30/24 08:57 Dose: 100 mg Gabapentin (Gabapentin 300 Mg Capsule) 300 mg PO BID [facility] Last Admin: 05/30/24 08:57 Dose: 300 mg Hydromorphone HCl (Hydromorphone 2 Mg Tablet) 2 mg PO Q4H PRN PRN Reason: Severe Pain (Level 7-10) Last Admin: 05/30/24 06:45 Dose: 2 mg Lorazepam (Lorazepam 1 Mg Tablet) 1 mg PO Q6H PRN PRN Reason: Anxiety Last Admin: 05/30/24 07:49 Dose: 1 mg Magnesium Oxide (Magnesium Oxide 400 Mg Tablet) 400 mg PO BID [facility] Last Admin: 05/29/24 20:18 Dose: 400 mg Multi-Ingredient Mouthwash/Gargle (Gi Cocktail 120 Ml Bottle) 30 ml PO Q4H PRN PRN Reason: HEARTBURN Last Admin: 05/22/24 14:10 Dose: 30 ml Ondansetron HCl (Ondansetron Odt 4 Mg Tablet) 4 mg TL Q6HR PRN PRN Reason: Nausea / Vomiting Last Admin: 05/30/24 06:44 Dose: 4 mg Pantoprazole Sodium (Pantoprazole 40 Mg Tablet) 40 mg PO BID [facility] Last Admin: 05/30/24 08:58 Dose: 40 mg Polyethylene Glycol (Polyethylene Glycol 3350 17 Gm Packet) 17 gm PO DAILY [facility] Last Admin: 05/30/24 09:23 Dose: Not Given Prazosin HCl (Prazosin 1 Mg Capsule) 4 mg PO QPM PRN PRN Reason: Insomnia Multivit/Folic Acid/Iron ( Vitamin Tablet) 1 tab PO DAILYWM [facility] Last Admin: 05/30/24 08:57 Dose: 1 tab Promethazine HCl (Promethazine 25 Mg Tablet) 25 mg PO Q6HR PRN PRN Reason: Nausea / Vomiting Last Admin: 05/29/24 11:12 Dose: 25 mg Quetiapine Fumarate (Quetiapine 100 Mg Tablet) 100 mg PO QPM [facility] Last Admin: 05/29/24 20:17 Dose: 100 mg Sodium Chloride (Sodium Chloride Flush 0.9% 10 Ml Syringe) 10 ml IVP PRN PRN PRN Reason: NEEDED PER PROVIDER ORDERS Last Admin: 05/29/24 06:50 Dose: 10 ml Sodium Chloride (Sodium Chloride Flush 0.9% 10 Ml Syringe) 10 ml IVP 0100,0900,1700 [facility] Last Admin: 05/30/24 09:04 Dose: 10 ml Thiamine HCl (Thiamine 100 Mg Tablet) 100 mg PO DAILY [facility] Last Admin: 05/30/24 08:58 Dose: 100 mg Omeprazole 20 mg PO DAILY 04/22/24 Ondansetron HCl 4 mg PO Q8H PRN 05/21/24 Prazosin [Minipress] 4 - 6 mg PO QPM PRN 05/21/24 Promethazine [Phenergan] 12.5 mg PO Q6H PRN 05/21/24 traMADol [Ultram] 50 mg PO Q4-6H PRN 05/21/24 Objective - Vital Signs/Intake & Output Reviewed Vital Signs: Yes Vital Signs: Vital Signs x48h Temp Pulse Resp BP Pulse Ox 05/30/24 08:48 36.6 C 78 18 103/72 96 Intake & Output: Intake & Output 05/27/24 05/28/24 05/29/24 05/30/24 23:59 23:59 23:59 23:59 Intake Total 2420 2170 2560 240 Output Total 2512 1635 5300 2100 Balance -0645 -1805 -2740 -1860 - Objective General Appearance: positive: No acute distress Eyes Bilateral: positive: Normal inspection ENT: positive: ENT inspection nml Neck: positive: Nml inspection Respiratory: positive: Chest non-tender, No respiratory distress, Breath sounds nml Cardiovascular: positive: Regular rate & rhythm, No murmur, No gallop. negative: Friction rub Abdomen: positive: Non-tender, No organomegaly, Nml bowel sounds Rectal: positive: Non-tender Skin: positive: Color nml, No rash, Warm, Dry Extremities: positive: Non-tender Neurologic/Psychiatric: positive: Oriented x3, CN's nml (2-12) - Lab Results Fish Bones: 05/29/24 06:57 05/29/24 06:03 Assessment/Plan - Problem List (1) Hydronephrosis of right kidney Impression: The patient is status post cystoscopy on May 24, 2024. He did not require stent placement. He did have takedown of a stricture in his urethra and currently has a Eli catheter in place. Patient's symptoms have improved dramatically since this procedure. (2) Pyelonephritis Impression: He will complete 10 days of therapy. Currently he has been transition to p.o. cefpodoxime (3) Acute on chronic low back pain Impression: He is stable on the current regimen. He is on scheduled Tylenol with p.o. hydromorphone for breakthrough pain (4) Fractured coccyx Impression: As above (5) Bilateral pubic rami fractures Impression: As above (6) Intractable nausea and vomiting Impression: Possibly due to his pyelonephritis and hydronephrosis. He is stable on his current regimen and his intractable nausea and vomiting have resolved. (7) Alcohol use disorder Impression: The patient denies having any issues with alcohol. He was intoxicated with alc ohol level of 376 when he came to the hospital. He is advised to not drink at this point. (8) Alcohol withdrawal Impression: The patient was going through mild alcohol withdrawal at the time of admission. Resolved (9) Marijuana use Impression: He only uses this sporadically for appetite and anxiety (10) Hiatal hernia Impression: He is following with a doctor at [facility]. Continue twice daily PPI (11) GERD (gastroesophageal reflux disease) Impression: As above (12) PTSD (post-traumatic stress disorder) Impression: The patient has a therapist in the outpatient setting. He is on prazosin for nightmares and PTSD. He will continue that. We have added Seroquel at bedtime and this has made a tremendous difference in his anxiety and ability to sleep (13) Syncope Impression: No further workup unless he develops further symptoms. I believe his syncopal episode was due to alcohol intoxication at the time of admission (14) Constipation Impression: Resolved. Continue bowel regimen (15) Ambulatory dysfunction Impression: The patient is working with physical therapy and Occupational Therapy. He is going to pursue subacute rehabilitation at discharge. He should ambulate with a rolling walker Disposition: Inpatient hospitalization remains necessary for safe disposition. The patient is waiting on bed placement for subacute rehabilitation. He will be transferred to a facility as soon as a bed is found. Time spent: 35 minutes Meds/Allgy - Home Medications Home Medications: Ambulatory Orders Medication Instructions Recorded Confirmed Docusate Sodium 100Mg Capsule 100 mg PO DAILY #20 cap 04/22/24 05/21/24 [Colace 100Mg Capsule] Gabapentin [Neurontin] 100 mg PO BID 15 Days #30 cap 04/22/24 05/21/24 Meloxicam [Mobic] 7.5 mg PO BID 10 Days #20 tablet 04/22/24 05/21/24 Omeprazole 20 mg PO DAILY 04/22/24 05/21/24 Ondansetron HCl 4 mg PO Q8H PRN 05/21/24 05/21/24 Prazosin [Minipress] 4 - 6 mg PO QPM PRN 05/21/24 05/21/24 Promethazine [Phenergan] 12.5 mg PO Q6H PRN 05/21/24 05/21/24 traMADol [Ultram] 50 mg PO Q4-6H PRN 05/21/24 05/21/24 - Allergies Allergies/Adverse Reactions: Allergies Allergy/AdvReac Type Severity Reaction Status Date / Time doxycycline Allergy Unknown Verified 05/20/24 22:32 ibuprofen Allergy Emesis Verified 05/20/24 22:32 methotrexate Allergy Anxiety Verified 05/20/24 22:32 Penicillins Allergy Unknown Verified 05/20/24 22:32 prednisone Allergy Hallucinati Verified 05/20/24 22:32 ons
[2024-05-30] MEDS: LORazepam 1 MG TABLET PO STA (17:30)
[2024-05-30] MEDS: LORazepam 2 MG/ML VIAL IVP STA (17:42)
[2024-05-30] MEDS: PRAZOSIN 1 MG CAPSULE PO PRN (22:03)
--- NOTE | 2024-05-31 08:13 | Discharge Plan ---
Discharge Plan Problem Reviewed?: Yes Disposition: Home Health Service Condition: Fair Prescriptions: LORazepam [Ativan] 1 mg PO Q6H PRN #30 tab PRN Reason: Anxiety Docusate Sodium 100Mg Capsule [Colace 100Mg Capsule] 100 mg PO BID #60 cap HYDROmorphone [Dilaudid] 2 mg PO Q4H PRN #18 tab PRN Reason: Severe Pain (Level 7-10) Magnesium Oxide [Mag Ox] 400 mg PO BID #60 tab polyethylene glycoL 3350 [Miralax] 17 gm PO DAILY #30 packet Gabapentin [Neurontin] 300 mg PO BID #60 cap Pantoprazole [Protonix] 40 mg PO BID #60 tab QUEtiapine [SEROquel] 100 mg PO QPM #30 tab Acetaminophen [Tylenol] 1,000 mg PO Q6H #100 tab Cefpodoxime Proxetil [Vantin] 200 mg PO BID 3 Days #12 tab Diet: Regular Activity Restrictions: Activity as Tolerated Assistance Devices: Walker Weight Bearing: Full Weight Instruction Topics: Syncope, Addiction Alcohol Plan of Treatment: You were admitted to the hospital after having an episode where he lost consciousness at home. Your alcohol level was extremely elevated at the time of admission. You had recently had a fall and had a coccyx fracture. You also were having issues with acute nausea and vomiting. You were quite anxious and having extreme difficulty sleeping. During the course of this hospitalization imaging revealed that you also had subacute bilateral pubic ramus fractures (fractured pelvis) which was contributing to your pain. Imaging also revealed that you had an extremely dilated bladder and a kidney infection. Urology was consulted and you had a cystoscopy performed. You had a stricture in your urethra which was taken down during the procedure and you had a Eli catheter placed. You are placed on antibiotics for your kidney infection and after all of this you began to improve. We were able to stabilize the nausea and vomiting and you are now tolerating a diet. We are treating your underlying infection. You have been extremely anxious and we have added Seroquel to your regimen at night. You are sleeping much better. I am going to discharge you with a 3-day supply of pain medication as well as some Ativan. If you need refills of these you will need to discuss with your primary care physician going forward. Initially efforts were underway to get you into a rehab facility however you are not able to get into the rehab facility that you would like and you have opted to go home today. I am going to set up home health physical therapy and Occupational Therapy for you. You should follow-up with your primary care physician next week. Assessment: 1. Hydronephrosis of the right kidney Status post cystoscopy on May 24, 2024. He did not require stent placement. 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 His Eli catheter was removed this morning at the recommendation of urology. The patient has already voided and is doing quite well. The patient's symptoms have dramatically improved since he had this procedure 2. Pyelonephritis He initially was on IV ceftriaxone and was transitioned to p.o. cefpodoxime. He will complete a course of antibiotic therapy as an outpatient. He needs 3 more days of therapy 3. Acute on chronic low back pain Pain was a significant issue during this hospitalization and he was quite miserable. He has been stabilized on a regimen of scheduled Tylenol with p.o. hydromorphone for breakthrough pain. I am writing a 3-day supply of hydromorphone at discharge. Pain control likely will be an issue going forward and I will do a for to his primary care physician on how to manage this 4. Fractured coccyx; bilateral pubic rami fractures This is the cause of his acute pain. Pain control as outlined above 5. Intractable nausea and vomiting This was likely due to pyelonephritis and hydronephrosis. He also has a known hiatal hernia. His nausea and vomiting stopped when we started treating the pyelonephritis and after he had his cystoscopy. He still has issues with mild nausea every now and then but no intractable nausea and vomiting like when he came into the hospital 6. Alcohol use disorder The patient states that he was only drinking a lot because of the pain from his fall. At the time of admission his alcohol level was 376 when he came into the hospital. I have discussed with him that with all of the GI issues that he has had he should abstain from alcohol altogether going forward. 7. Alcohol withdrawal The patient did have some evidence of mild alcohol withdrawal at the time of admission. CIWA protocol was followed. This resolved without any issues. 8. Marijuana use He says he only uses this sporadically for appetite and anxiety. He says he cannot afford to use this every day 9. Hiatal hernia He is following at [facility]. I have started him on twice daily Protonix and written a prescription for this at discharge for now. 10. GERD Plan as outlined above 11. PTSD with severe anxiety The patient has a therapist in the outpatient setting. His anxiety was initially significantly out of control. He was having nightmares and was tearful and having panic attacks. He was stabilized with Haldol which he initially thought was a wonder drug. Telepsych consult was ordered and they recommended giving him Haldol at night or if that did not work Seroquel. After a couple of days the patient felt that the Haldol was causing him to have tach Henrik nightmares. The Haldol was stopped. He has been on Seroquel 100 mg nightly for the past several nights and is doing well. I have written a prescription for this at discharge 12. Syncope Further workup was not obtained. Due to the extremely high alcohol level at the time of admission it was felt that this could have been due to alcohol intoxication. He has had no further syncopal episodes since he came into the hospital 13. Constipation Resolved. He will continue a bowel regimen 14. Ambulatory dysfunction The patient has been working with physical therapy and Occupational Therapy. Subacute rehabilitation was recommended. The patient did not get into the facility that he was hoping to. He became quite upset about this yesterday. He now wants to go home with home health physical therapy and Occupational Therapy. I have talked to him about this at length. He says he has a good support system and people that are going to be helping him at home. He is advised that he has up to 30 days to pursue his rehab after this hospitalization if he does not do well at home. Additional Instructions or Follow Up instructions: You are seen in the emergency department for fainting episode and for alcohol intoxication. Please follow-up with your primary care provider for further evaluation since you may benefit from an outpatient echocardiogram and cardiology Referral. Outpatient heart monitoring can be done as well for patients with Multiple fainting episodes. Return to the emergency department if you have new or worsening symptoms or other concerns. Please consider cutting back on the amount of alcohol you are drinking because this is significantly affecting your health. Follow-Up Care: Home Health - PT, Home Health - OT No Smoking: If you smoke, Please STOP! Call for help. Follow-up with: Rosaura Rizo ARNP [Primary Care Provider] -
--- NOTE | 2024-05-31 08:38 | DISCHARGE SUMMARY ---
Discharge Summary Admit Date: 05/21/24 Discharge Date: 05/31/24 Discharging Provider: Blanca Lynn PA-C Primary Care Provider: Isabella Rizo MD Code Status: Do Not Attempt Resuscitation Condition at Discharge: Fair Discharge Disposition: Home Health Service - DIAGNOSES Discharge Diagnoses with Status of Each Condition: 1. Hydronephrosis of the right kidney Status post cystoscopy on May 24, 2024. He did not require stent placement. 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 His Eli catheter was removed this morning at the recommendation of urology. The patient has already voided and is doing quite well. The patient's symptoms have dramatically improved since he had this procedure 2. Pyelonephritis He initially was on IV ceftriaxone and was transitioned to p.o. cefpodoxime. He will complete a course of antibiotic therapy as an outpatient. He needs 3 more days of therapy 3. Acute on chronic low back pain Pain was a significant issue during this hospitalization and he was quite miserable. He has been stabilized on a regimen of scheduled Tylenol with p.o. hydromorphone for breakthrough pain. I am writing a 3-day supply of hydromorp laine at discharge. Pain control likely will be an issue going forward and I will do a for to his primary care physician on how to manage this 4. Fractured coccyx; bilateral pubic rami fractures This is the cause of his acute pain. Pain control as outlined above 5. Intractable nausea and vomiting This was likely due to pyelonephritis and hydronephrosis. He also has a known hiatal hernia. His nausea and vomiting stopped when we started treating the pyelonephritis and after he had his cystoscopy. He still has issues with mild nausea every now and then but no intractable nausea and vomiting like when he came into the hospital 6. Alcohol use disorder The patient states that he was only drinking a lot because of the pain from his fall and fractures. At the time of admission his alcohol level was 376 when he came into the hospital. I have discussed with him that with all of the GI issues that he has had he should abstain from alcohol altogether going forward. 7. Alcohol withdrawal The patient did have some evidence of mild alcohol withdrawal at the time of admission. [place] protocol was followed. This resolved without any issues. 8. Marijuana use He says he only uses this sporadically for appetite and anxiety. He says he cannot afford to use this every day 9. Hiatal hernia He is following at [facility]. I have started him on twice daily Protonix and written a prescription for this at discharge for now. 10. GERD Plan as outlined above 11. PTSD with severe anxiety The patient has a therapist in the outpatient setting. His anxiety was initially significantly out of control. He was having nightmares and was tearful and having panic attacks. He was stabilized with Haldol which he initially thought was a wonder drug. Telepsych consult was ordered and they recommended giving him Haldol at night or if that did not work Seroquel. After a couple of days the patient felt that the Haldol was causing him to have tecnicolor nightmares. The Haldol was stopped. He has been on Seroquel 100 mg nightly for the past several nights and is doing well. I have written a prescription for this at discharge 12. Syncope Further workup was not obtained. Due to the extremely high alcohol level at the time of admission it was felt that this could have been due to alcohol intoxication. He has had no further syncopal episodes since he came into the hospital 13. Constipation Resolved. He will continue a bowel regimen 14. Ambulatory dysfunction The patient has been working with physical therapy and Occupational Therapy. Subacute rehabilitation was recommended. The patient did not get into the facility that he was hoping to. He became quite upset about this yesterday. He now wants to go home with home health physical therapy and Occupational Therapy. I have talked to him about this at length. He says he has a good support system and people that are going to be helping him at home. He is advised that he has up to 30 days to pursue his rehab after this hospitalization if he does not do well at home. - HPI History of Present Illness: From the admission HP: The patient is a pleasant 68 year old male. He has a past mendical history significant for a hiatal hernia, currently going through outpatient process of getting set up for surgical repair. In addition the patient has a history of significant PTSD. He has a history of alcohol abuse. He had a fall last month and injured his lower back and coccyx. He says he has 2 fractures in the coccyx. Since then he has had terrible pain. Yesterday he says he stood up and passed out and fell. He is having even worse pain now - HOSPITAL COURSE Hospital Course: Please see complete medical record for details. This was a prolonged hospitalization and this will be a brief summary. The patient was admitted to the hospital. Initially he was going through alcohol withdrawal and was having a significant amount of pain. He was having issues with intractable nausea and vomiting. Initially the nausea and vomiting was attributed to possible alcohol withdrawal but after about 3 days the alcohol withdrawal symptoms improved but he was still having significant issues. Due to the ongoing nausea and vomiting a CT scan of the abdomen and pelvis was obtained. He was found to have moderate right-sided hydronephrosis and hydroureter. Questionable tiny 1 to 2 mm calcification were seen in the distal right ureter proximal to the right UVJ. He had a markedly distended urinary bladder with bladder wall thickening and trabeculation. He prostate gland was mildly enlarged. It was felt that he may have chronic urinary outlet obstruction. He did have right perinephric fat stranding concerning for pyelonephritis. The patient was started on IV ceftriaxone. Urology was consulted. He did have a cystoscopy during this hospitalization. He was not found to have any obstructing stones and he did not require stent placement. 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 After he had his cystoscopy and started his IV antibiotic therapy the patient quickly began to improve. He was still extremely anxious and tearful. He was given IV Haldol which worked amazingly well. He was given this at night and he was finally able to sleep. His nausea and vomiting improved. Telepsych was consulted due to the severity of his anxiety for recommendations on outpatient management. They indicated that since the Haldol was working so well that we should continue that or we could consider a transition to Seroquel. After a couple of days on Haldol the patient began to have worsening nightmares that he attributed to the Haldol. He was switched to Seroquel and since that time has been quite stable. His anxiety is improved and he is sleeping well. He was significantly weak and debilitated after this prolonged hospitalization. Discharge planning was working on getting him into subacute rehabilitation and he was kept in the hospital for placement. However he was declined by the facility that he wished to go to. He did have a bed offer yesterday at a different facility and he became quite upset and now has decided that he wants to go home. He is requesting that I set up home health physical therapy and Occupational Therapy which I have done. I did talk to him at length about the benefits of going to rehab. He says that he has a good support system in place with friends that are going to be helping him. He was able to get out of bed by himself and ambulate about the room this morning with a rolling walker. He should use a walker to ambulate for now. I have consulted our social workers to set up home health physical therapy and Occupational Therapy. His pain has been stabilized on a regimen of scheduled Tylenol with p.o. hydromorphone. I have written for a 3-day supply of this. I will defer to his primary care physician on how to manage his pain going forward. I did discuss his drinking prior to leaving the hospital. The patient maintains that he has been drinking so much to help manage the pain from the fractures. He says now that his pain is under better control he does not need to drink. I did stress the importance of not drinking due to the severity of his GI symptoms and he seems to understand. At this point maximum hospital benefit has been reached. The patient will be discharged today in stable condition. - ALLERGIES Allergies/Adverse Reactions: Allergies Allergy/AdvReac Type Severity Reaction Status Date / Time doxycycline Allergy Unknown Verified 05/20/24 22:32 ibuprofen Allergy Emesis Verified 05/20/24 22:32 methotrexate Allergy Anxiety Verified 05/20/24 22:32 Penicillins Allergy Unknown Verified 05/20/24 22:32 prednisone Allergy Hallucinati Verified 05/20/24 22:32 ons - MEDICATIONS Home Medications: Ambulatory Orders Medication Instructions Recorded Confirmed Ondansetron HCl 4 mg PO Q8H PRN 05/21/24 05/21/24 Prazosin [Minipress] 4 - 6 mg PO QPM PRN 05/21/24 05/21/24 Promethazine [Phenergan] 12.5 mg PO Q6H PRN 05/21/24 05/21/24 Acetaminophen [Tylenol] 1,000 mg PO Q6H #100 tab 05/31/24 Cefpodoxime Proxetil [Vantin] 200 mg PO BID 3 Days #12 tab 05/31/24 Docusate Sodium 100Mg Capsule 100 mg PO BID #60 cap 05/31/24 [Colace 100Mg Capsule] Gabapentin [Neurontin] 300 mg PO BID #60 cap 05/31/24 HYDROmorphone [Dilaudid] 2 mg PO Q4H PRN #18 tab 05/31/24 LORazepam [Ativan] 1 mg PO Q6H PRN #30 tab 05/31/24 Magnesium Oxide [Mag Ox] 400 mg PO BID #60 tab 05/31/24 Pantoprazole [Protonix] 40 mg PO BID #60 tab 05/31/24 QUEtiapine [SEROquel] 100 mg PO QPM #30 tab 05/31/24 polyethylene glycoL 3350 [Miralax] 17 gm PO DAILY #30 packet 05/31/24 - PHYSICAL EXAM AT DISCHARGE General Appearance: positive: No acute distress, Anxious Eyes Bilateral: positive: Normal inspection ENT: positive: ENT inspection nml Neck: positive: Nml inspection Respiratory: positive: Chest non-tender, No respiratory distress. negative: Wheezes, Rales, Rhonchi Cardiovascular: positive: Regular rate & rhythm, No murmur, No gallop. negative: Friction rub Abdomen: positive: Non-tender, No organomegaly, Nml bowel sounds, No distention. negative: Tenderness, Guarding, Rebound Skin: positive: Color nml, No rash, Warm, Dry Extremities: positive: Non-tender Neurologic/Psychiatric: positive: Oriented x3, CN's nml (2-12) - LABS Result Diagrams: 05/29/24 06:57 05/29/24 06:03 - FOLLOW UP Follow Up: The patient should follow up with Dr Isabella Rizo in 1 week - TIME SPENT Time Spent in Discharge (Minutes): 45
[2024-05-31 12:55] VITALS: BP 113/73; O2SAT 97
== END 2024-05-31 12:54 | disposition home health service (06) | DRG 690 ==
LOC: EDUNIT# → ED 22:21 → MS2 05-21 08:16 → OBSVTOIN 05-22 10:09
PROVIDERS: ADMIT Physician Assistant; ATTEND Physician Assistant
PROC: 0T9B80Z Drainage of Bladder with Drainage Device, Via Natural or Artificial Opening Endoscopic (ICD-10-PCS; 2024-05-24)
PROC: 0TJ98ZZ Inspection of Ureter, Via Natural or Artificial Opening Endoscopic (ICD-10-PCS; 2024-05-24)
PROC: 0T7D8ZZ Dilation of Urethra, Via Natural or Artificial Opening Endoscopic (ICD-10-PCS; principal; 2024-05-24 12:15)
DX: N13.6 Pyonephrosis (principal); S32.2XXA Fracture of coccyx, initial encounter for closed fracture; R62.7 Adult failure to thrive; S32.592A Other specified fracture of left pubis, initial encounter for closed fracture; F10.120 Alcohol abuse with intoxication, uncomplicated; S32.591A Other specified fracture of right pubis, initial encounter for closed fracture; F10.139 Alcohol abuse with withdrawal, unspecified; N35.919 Unspecified urethral stricture, male, unspecified site; G89.29 Other chronic pain; K44.9 Diaphragmatic hernia without obstruction or gangrene; W19.XXXA Unspecified fall, initial encounter; K21.9 Gastro-esophageal reflux disease without esophagitis; Y90.8 Blood alcohol level of 240 mg/100 ml or more; R07.9 Chest pain, unspecified; I25.2 Old myocardial infarction; R11.2 Nausea with vomiting, unspecified; F43.10 Post-traumatic stress disorder, unspecified; F41.9 Anxiety disorder, unspecified; R55 Syncope and collapse; K59.00 Constipation, unspecified; R26.9 Unspecified abnormalities of gait and mobility; N32.89 Other specified disorders of bladder; F32.A Depression, unspecified; G47.9 Sleep disorder, unspecified; Z79.899 Other long term (current) drug therapy; Z87.828 Personal history of other (healed) physical injury and trauma; Z88.0 Allergy status to penicillin; Z88.1 Allergy status to other antibiotic agents; Z88.6 Allergy status to analgesic agent; Z88.8 Allergy status to other drugs, medicaments and biological substances; Z98.890 Other specified postprocedural states
CPT/HCPCS: 36415; 71045; 74177; 80053; 80069; 80306; 81001; 83690; 83735; 85025; 85610; 93005; 96365; 96366; 96367; 96375; 96376; 97116; 97162; 97166; 97530; 97535; 99284; 99285; A9270; C1758; G0378; G0480; J0131; J1170; J1650; J2060; J2765; J3411; J7040; J7120; J8499; Q0162; Q0169; Q9967; 82077; 87086; Q9966

== ENCOUNTER 2024-06-03 19:00 | Outpatient (CLI) | payer MEDICARE | END 2024-06-03 19:01 | disposition critical access hospital (66) | LOC: EMS 19:00 | DX: R55 Syncope and collapse (principal) | CPT/HCPCS: A0425; A0429 ==

== ENCOUNTER 2024-06-03 19:27 | Emergency (ER) | payer MEDICARE ==
[2024-06-03 19:44] LABS: BASOPHILS # (AUTO) 0.1 10^3/uL (0.0-0.1); BASOPHILS % (AUTO) 1.4 %; EOSINOPHILS # (AUTO) 0.2 10^3/uL (0.0-0.7); EOSINOPHILS % (AUTO) 4.1 %; HCT - HEMATOCRIT 35.6 % (42.0-52.0); HGB - HEMOGLOBIN 11.7 g/dL (14.0-18.0); LYMPHOCYTES % (AUTO) 27.2 %; MEAN CORPUSCULAR HGB CONC 32.9 g/dL (32.0-36.0); MEAN CORPUSCULAR VOLUME 103.5 fL (80.0-94.0); MEAN PLATELET VOLUME 10.6 fL (7.4-11.4); MONOCYTES # (AUTO) 0.3 10^3/uL (0.0-1.0); MONOCYTES % (AUTO) 9.3 %; NEUTROPHILS # (AUTO) 2.1 10^3/uL (1.5-6.6); NEUTROPHILS % (AUTO) 57.7 %; PLT - PLATELET COUNT 227 10^3/uL (130-450); RED BLOOD COUNT 3.44 10^6/uL (4.70-6.10); RED CELL DISTRIBUTION WIDTH 12.9 % (12.0-15.0); WHITE BLOOD COUNT 3.7 x10^3/uL (4.8-10.8)
--- NOTE | 2024-06-03 19:44 | ED Physician Documentation ---
History of Present Illness - Stated complaint Stated Complaint: SYNCOPE - Chief complaint Chief Complaint: Neuro - Additonal information Additional information: Patient is a 68-year-old male well-known to the emergency department for past medical history of hypertension, abdominal pain and history of nausea and vomiting. He notes he had about 3 syncopal episodes today. Patient was brought in by EMS after calling them for his third syncopal episode. He notes he only ate breakfast did not eat lightly during the day today. He notes he got up and felt lightheaded sat on his couch and fainted. Unsure for how long he was out no incontinence. He denies any tongue biting. Patient denies drinking any alcohol today. He did take some hydromorphone that he has prescribed but only took 1 this morning. He denies hitting his head or pain in his upper or lower extremities. Patient was seen here 2 days ago for persistent nausea and vomiting Notably had hydronephrosis and concerning findings for pyelonephritis he had cystoscopy that was reassuring and was discharged home on cefpodoxime that he appears to still be taking. Patient also reports similar symptoms PD PAST MEDICAL HISTORY - Past Medical History Cardiovascular: None Respiratory: None Neuro: None Endocrine/Autoimmune: None GI: GERD : Other HEENT: None Psych: Depression Musculoskeletal: None Derm: None - Past Surgical History Past Surgical History: Yes General: Cholecystectomy - Present Medications Home Medications: Ambulatory Orders Medication Instructions Recorded Confirmed Ondansetron HCl 4 mg PO Q8H PRN 05/21/24 05/21/24 Prazosin [Minipress] 4 - 6 mg PO QPM PRN 05/21/24 05/21/24 Promethazine [Phenergan] 12.5 mg PO Q6H PRN 05/21/24 05/21/24 Acetaminophen [Tylenol] 1,000 mg PO Q6H #100 tab 05/31/24 Cefpodoxime Proxetil [Vantin] 200 mg PO BID 3 Days #12 tab 05/31/24 Docusate Sodium 100Mg Capsule 100 mg PO BID #60 cap 05/31/24 [Colace 100Mg Capsule] Gabapentin [Neurontin] 300 mg PO BID #60 cap 05/31/24 HYDROmorphone [Dilaudid] 2 mg PO Q4H PRN #18 tab 05/31/24 LORazepam [Ativan] 1 mg PO Q6H PRN #30 tab 05/31/24 Magnesium Oxide [Mag Ox] 400 mg PO BID #60 tab 05/31/24 Pantoprazole [Protonix] 40 mg PO BID #60 tab 05/31/24 QUEtiapine [SEROquel] 100 mg PO QPM #30 tab 05/31/24 polyethylene glycoL 3350 [Miralax] 17 gm PO DAILY #30 packet 05/31/24 - Allergies Allergies/Adverse Reactions: Allergies Allergy/AdvReac Type Severity Reaction Status Date / Time doxycycline Allergy Unknown Verified 06/03/24 19:38 ibuprofen Allergy Emesis Verified 06/03/24 19:38 methotrexate Allergy Anxiety Verified 06/03/24 19:38 Penicillins Allergy Unknown Verified 06/03/24 19:38 prednisone Allergy Hallucinati Verified 06/03/24 19:38 ons - Social History Does the pt smoke?: No Smoking Status: Never smoker Does the pt drink ETOH?: No Does the pt have substance abuse?: Yes - Immunizations Immunizations are current?: No Immunizations: TDAP >10years/unknown - POLST Patient has POLST: No Results - Vitals Vitals: Vital Signs - 24 hr 06/03/24 06/03/24 06/03/24 19:25 21:25 21:27 Temperature 36.3 C L Heart Rate 72 64 Heart Rate [ 74 Sitting] Heart Rate [ 74 Standing] Heart Rate [ 73 Supine] Respiratory 14 17 Rate Blood Pressure 126/83 H 136/80 H Blood Pressure 138/94 H [Sitting] Blood Pressure 136/80 H [Standing] Blood Pressure 126/72 [Supine] O2 Saturation 99 98 Oxygen O2 Source Room air - EKG (time done) 193 EKG releavant findings:: EKG personally interpreted by author of this note. Relevant findings are: Rate: Rate (enter#), Guzman, Tachy, Other Rhythm: NSR [place]: Normal Intervals: Normal [place] QRS: Normal Ischemia: Normal ST segments Compare to prior EKG: Unchanged from prior EKG Computer interpretation: Agree with computer - Labs Labs: Laboratory Tests 06/03/24 06/03/24 06/03/24 19:30 19:30 19:30 WBC 3.7 L RBC 3.44 L Hgb 11.7 L Hct 35.6 L MCV 103.5 H MCH 34.0 H MCHC 32.9 RDW 12.9 Plt Count 227 MPV 10.6 Neut # (Auto) 2.1 Lymph # (Auto) 1.0 L [place] # (Auto) 0.3 Eos # (Auto) 0.2 Baso # (Auto) 0.1 Absolute Nucleated RBC 0.00 Nucleated RBC % 0.0 Magnesium 1.8 Troponin I High Sens 2.8 Ethyl Alcohol 10.5 PD Medical Decision Making - ED course Complexity details: reviewed old records, reviewed results ED course: Patient is a 68-year-old male well-known to emergency department recently admitted for pyelonephritis currently on cefpodoxime comes in by EMS after he had 3 syncopal episodes at home. Patient notes he was sitting on his couch went to get up and felt lightheaded. Patient did not hit his head. He is not on any blood thinners. Vitals are stable on arrival. Initial EKG shows no acute findings. Labs are reassuring no leukocytosis hemoglobin is stable no electrolyte abnormality or significant NEVAEH. Chest x-ray shows no acute findings. Urine attempted to be obtained here in the emergency department. However patient had bladder scan showing over 700 cc in the bladder. He refused straight cath here in emergency department he is requesting to leave he notes toro redmond has had urethroplasty in the past and does not do well with straight catheters or Eli catheters. Patient declined needing any straight cath he denies any pressure in his abdomen. Patient feels safe to discharge home. Patient instructed to increase fluid intake to follow-up with his PCP as he is scheduled tomorrow instructed him to continue on oral antibiotics. Departure - Departure Disposition: 01 Home, Self Care Clinical Impression: Syncope, Urinary retention Condition: Good Comments: Your workup here in the emergency department showed no acute findings I cannot explain due to your fainting episodes however you are cleared here in the [facility] department for no acute findings. You need to follow-up with your PCP as instructed tomorrow. Continue with home antibiotics for your UTI this could explain the large amount of urine in your bladder. Return with any fevers nausea vomiting abdominal pain headaches dizziness, lightheadedness, chest pain, shortness of breath. Forms: PCP List Discharge Date/Time: 06/03/24 21:49
--- NOTE | 2024-06-03 20:03 | XRAY Report ---
PROCEDURE: Chest 1V INDICATIONS: chest pain TECHNIQUE: One view of the chest was acquired. COMPARISON: Chest radiograph 05/20/2024. FINDINGS: Surgical changes and devices: None. Lungs and pleura: No pleural effusions or pneumothorax. Lungs are clear. Kyphotic positioning is no anup. Patient's head projects over the lung apices. Mediastinum: Mediastinal contours appear normal. Heart size is normal. Bones and chest wall: No suspicious bony lesions. Overlying soft tissues appear unremarkable. IMPRESSION: No acute cardiopulmonary process. Reviewed by: Milad Gracía MD on 06/03/2024 8:02 PM PDT Approved by: Milad García MD on 06/03/2024 8:02 PM PDT Station ID: [id number]
[2024-06-03 20:04] LABS: ETOH - ETHANOL 10.5 mg/dL; MAGNESIUM 1.8 mg/dL (1.7-2.3)
[2024-06-03] MEDS: SODIUM CHLORIDE 0.9% 1,000 ML IV STA (21:25)
[2024-06-03 21:41] VITALS: BP 126/72; O2SAT 98
== END 2024-06-03 21:49 | disposition home or self-care (01) ==
LOC: EDUNIT# → ED 19:27
DX: R55 Syncope and collapse (principal); R33.9 Retention of urine, unspecified
CPT/HCPCS: 36415; 71045; 83735; 84484; 85025; 93005; 99284; G0480; 80053; 82077; 83690

== ENCOUNTER 2024-06-23 11:36 | Outpatient (CLI) | payer MEDICARE | END 2024-06-23 23:59 | disposition critical access hospital (66) | LOC: EMS 11:36 | DX: R10.812 Left upper quadrant abdominal tenderness (principal); R11.2 Nausea with vomiting, unspecified; K46.9 Unspecified abdominal hernia without obstruction or gangrene; R55 Syncope and collapse | CPT/HCPCS: A0425; A0429 ==

== ENCOUNTER 2024-06-23 12:06 | Emergency (ER) | payer MEDICARE ==
--- NOTE | 2024-06-23 12:15 | ED Physician Documentation ---
History of Present Illness - Stated complaint Stated Complaint: ABD PX - Chief complaint Chief Complaint: Neuro - History obtained from History obtained from: Patient, EMS - Additonal information Additional information: The right this is a 68-year-old male with a past medical history of recurrent syncope/fainting episodes, intractable nausea and vomiting, prior pyelonephritis, prior coccyx and pelvic fracture, alcohol use disorder, and has a hiatal hernia that has been bothering him for quite some time. He presented today via EMS after calling adult family services asking if he could get a life alert button because he has been falling frequently at home. [facility] sent EMS out to check on the patient because he had fallen this morning. Patient states he had gone to the bathroom, felt dizzy, fell to the ground but did not lose consciousness, and had some difficulty getting up and that is why he called adult family services. He states he has been having issues with nausea and vomiting for the last day or so, and has a lot of pain around his hiatal hernia, and also having a lot of coccyx and lower back pain that he has had for quite some time. He currently is not taking any pain medication, previously has been on various different medications including tramadol, fentanyl, hydromorphone. He also previously was here with concerns for alcohol withdrawal, he states that since his episode in May, he has not been consuming alcohol, denies any concern for withdrawal today. Review of Systems Constitutional: reports: Reviewed and negative Eyes: reports: Reviewed and negative Ears: reports: Reviewed and negative Nose: reports: Reviewed and negative Throat: reports: Reviewed and negative Cardiac: reports: Reviewed and negative Respiratory: reports: Reviewed and negative GI: reports: Abdominal Pain, Nausea, Vomiting : reports: Reviewed and negative Skin: reports: Reviewed and negative Musculoskeletal: reports: Back pain PD PAST MEDICAL HISTORY - Past Medical History Past Medical History: Yes Cardiovascular: None Respiratory: None Neuro: None Endocrine/Autoimmune: None GI: GERD, Hiatal hernia : Other HEENT: None Psych: Depression, Anxiety Musculoskeletal: None Derm: None - Past Surgical History Past Surgical History: Yes General: Cholecystectomy - Present Medications Home Medications: Ambulatory Orders Medication Instructions Recorded Confirmed Ondansetron HCl 4 mg PO Q8H PRN 05/21/24 05/21/24 Prazosin [Minipress] 4 - 6 mg PO QPM PRN 05/21/24 05/21/24 Promethazine [Phenergan] 12.5 mg PO Q6H PRN 05/21/24 05/21/24 Acetaminophen [Tylenol] 1,000 mg PO Q6H #100 tab 05/31/24 Cefpodoxime Proxetil [Vantin] 200 mg PO BID 3 Days #12 tab 05/31/24 Docusate Sodium 100Mg Capsule 100 mg PO BID #60 cap 05/31/24 [Colace 100Mg Capsule] Gabapentin [Neurontin] 300 mg PO BID #60 cap 05/31/24 HYDROmorphone [Dilaudid] 2 mg PO Q4H PRN #18 tab 05/31/24 LORazepam [Ativan] 1 mg PO Q6H PRN #30 tab 05/31/24 Magnesium Oxide [Mag Ox] 400 mg PO BID #60 tab 05/31/24 Pantoprazole [Protonix] 40 mg PO BID #60 tab 05/31/24 QUEtiapine [SEROquel] 100 mg PO QPM #30 tab 05/31/24 polyethylene glycoL 3350 [Miralax] 17 gm PO DAILY #30 packet 05/31/24 clonazePAM [Clonazepam] 0.25 mg PO BID PRN #6 tab 06/23/24 hydrOXYzine HCL [Hydroxyzine HCl] 10 mg PO QPM PRN #10 tablet 06/23/24 - Allergies Allergies/Adverse Reactions: Allergies Allergy/AdvReac Type Severity Reaction Status Date / Time doxycycline Allergy Unknown Verified 06/23/24 12:19 ibuprofen Allergy Emesis Verified 06/23/24 12:19 methotrexate Allergy Anxiety Verified 06/23/24 12:19 Penicillins Allergy Unknown Verified 06/23/24 12:19 prednisone Allergy Hallucinati Verified 06/23/24 12:19 ons - Social History Does the pt smoke?: No Smoking Status: Never smoker Does the pt drink ETOH?: No Does the pt have substance abuse?: Yes - Immunizations Immunizations are current?: No Immunizations: TDAP >10years/unknown - POLST Patient has POLST: No PD ED PE NORMAL - Vitals Vital signs reviewed: Yes - General General: Alert and oriented X 3, No acute distress, Well developed/nourished - HEENT HEENT: Atraumatic, Moist mucous membranes - Cardiac Cardiac: RRR, No murmur, No gallop, No rub - Respiratory Respiratory: No respiratory distress, Clear bilaterally - Abdomen Abdomen: Normal bowel sounds, Soft, Non tender, Non distended, Other (He had no abdominal pain on palpation but continued to complain of pain) - Back Back: No CVA TTP, No spinal TTP - Derm Derm: Normal color, Warm and dry - Extremities Extremities: No deformity, No tenderness to palpate, Normal ROM s pain, No edema, No calf tenderness / cord - Neuro Neuro: Alert and oriented X 3 Eye Opening: Spontaneous Motor: Obeys Commands Verbal: Oriented GCS Score: 15 - Psych Psych: Other (Anxious, no tremor, no other signs of withdrawal.) Results - Vitals Vitals: Vital Signs - 24 hr 06/23/24 06/23/24 06/23/24 12:06 14:16 16:30 Temperature 37.2 C Heart Rate 67 68 60 Respiratory 22 18 12 Rate Blood Pressure 156/82 H 154/78 H 134/66 H O2 Saturation 100 100 95 06/23/24 17:01 Temperature 36.5 C Heart Rate 51 L Respiratory 11 L Rate Blood Pressure 148/69 H O2 Saturation 100 Oxygen O2 Source Room air - EKG (time done) No standard instances EKG releavant findings:: EKG personally interpreted by author of this note. Relevant findings are: Rate: Rate (enter#) (61) Rhythm: NSR [place]: Normal Intervals: Normal NC QRS: Normal Ischemia: Normal ST segments Computer interpretation: Agree with computer - Labs Labs: Laboratory Tests 06/23/24 06/23/24 06/23/24 12:24 12:24 12:24 WBC 4.2 L RBC 4.05 L Hgb 13.0 L Hct 40.5 L MCV 100.0 H MCH 32.1 H MCHC 32.1 RDW 13.0 Plt Count 81 L MPV 10.5 Neut # (Auto) 3.3 Lymph # (Auto) 0.6 L [place] # (Auto) 0.3 Eos # (Auto) 0.0 Baso # (Auto) 0.0 Absolute Nucleated RBC 0.00 Nucleated RBC % 0.0 Sodium 141 Potassium 3.6 Chloride 104 Carbon Dioxide 28 Anion Gap 9.0 BUN 10 Creatinine 0.6 Estimated GFR (MDRD) 134 Glucose 113 H Lactic Acid 1.9 Calcium 9.2 Total Bilirubin 1.5 H AST 20 ALT 11 Alkaline Phosphatase 91 Troponin I High Sens Total Protein 6.7 Albumin 4.1 Globulin 2.6 Albumin/Globulin Ratio 1.6 Lipase 83 H Urine Color Urine Clarity Urine pH Ur Specific [place] Urine Protein Urine Glucose (UA) Urine Ketones Urine Occult Blood Urine Nitrite Urine Bilirubin Urine Urobilinogen Ur Leukocyte Esterase Urine RBC Urine WBC Ur Squamous Epith Cells Urine Bacteria Ur Microscopic Review Urine Culture Comments Urine Opiates Screen Ur Buprenorphine Scrn Ur Oxycodone Screen Urine Methadone Screen Ur Barbiturates Screen Ur Tricyclics Screen Ur Phencyclidine Scrn Ur Amphetamine Screen U Methamphetamines Scrn U Benzodiazepines Scrn Urine Cocaine Screen U Cannabinoids Screen Ur Drug Screen Comment Ethyl Alcohol < 10.0 06/23/24 06/23/24 12:24 16:13 WBC RBC Hgb Hct MCV MCH MCHC RDW Plt Count MPV Neut # (Auto) Lymph # (Auto) [place] # (Auto) Eos # (Auto) Baso # (Auto) Absolute Nucleated RBC Nucleated RBC % Sodium Potassium Chloride Carbon Dioxide Anion Gap BUN Creatinine Estimated GFR (MDRD) Glucose Lactic Acid Calcium Total Bilirubin AST ALT Alkaline Phosphatase Troponin I High Sens 3.4 Total Protein Albumin Globulin Albumin/Globulin Ratio Lipase Urine Color DARK YELLOW Urine Clarity CLEAR Urine pH 6.5 Ur Specific [place] 1.020 Urine Protein NEGATIVE Urine Glucose (UA) NEGATIVE Urine Ketones NEGATIVE Urine Occult Blood MODERATE H Urine Nitrite NEGATIVE Urine Bilirubin NEGATIVE Urine Urobilinogen 0.2 (NORMAL) Ur Leukocyte Esterase NEGATIVE Urine RBC 6-10 H Urine WBC 0-3 Ur Squamous Epith Cells NONE SEEN Urine Bacteria None Seen Ur Microscopic Review INDICATED Urine Culture Comments NOT INDICATED Urine Opiates Screen NEGATIVE Ur Buprenorphine Scrn NEGATIVE Ur Oxycodone Screen NEGATIVE Urine Methadone Screen NEGATIVE Ur Barbiturates Screen NEGATIVE Ur Tricyclics Screen NEGATIVE Ur Phencyclidine Scrn NEGATIVE Ur Amphetamine Screen NEGATIVE U Methamphetamines Scrn NEGATIVE U Benzodiazepines Scrn NEGATIVE Urine Cocaine Screen NEGATIVE U Cannabinoids Screen POSITIVE H Ur Drug Screen Comment CUTOFF CONC BELOW: Ethyl Alcohol - Rads (name of study) No standard instances Relevant Findings:: Final report received PD Medical Decision Making - ED course Complexity details: reviewed old records, reviewed results, re-evaluated patient, considered differential, d/w patient ED course: 68-year-old male presented with multiple different concerns today including concern about recurrent falls/syncopal episodes at home, patient has been seen in the past for same. It is difficult to pin down exactly why the patient is here today. He has been concerned about his hiatal hernia stating he has frequent left upper abdominal pain, he also has nausea and vomiting, pain in his coccyx since a fall couple months ago. He is fixated on the hiatal hernia stating that he has persistent pain in this area, and has seen multiple specialist however tells me that his surgeon at either [place] or [facility] has "fired him," and he is therefore going to be seen at [facility] for this hiatal hernia. He has had a lot of issues with reflux and chronic nausea and vomiting that may be attributed to this. In any case, this is not new today and the nausea and vomiting is not new. He has also been seen multiple times for syncope/fainting episodes/falls. Previously some of this likely was related to his alcohol use so he has not been using alcohol recently and had a fall today. He has not no acute injuries on his physical exam, no bony injuries, no contusions, did not hit his head, and there was no loss of con sciousness. He had no prodromal symptoms, and his cardiac work appears stable. Advised patient to follow-up with his PCP for this, consider outpatient Zio patch monitoring to see if there is any acute arrhythmia that is causing his symptoms. He is not orthostatic, not currently using alcohol or having withdrawal symptoms. He is also complaining of generalized pain, pain in the coccyx from prior injury, pain in his abdomen from hiatal hernia. He is not currently on any pain medicine at home. He has however had lots of issues with pain in the past per chart review and has been on various different medications. We obtained a CT abdomen pelvis given patient has persistent pain and other no acute findings as listed above, labs are stable and I have lower suspicion for acute abdominal process. The pain does seem to be chronic and I advised Him to discuss chronic pain management with his PCP. Given his history of alcohol use I am reluctant to prescribe any additional pain medication today. The patient did receive a dose of Ativan here for anxiety which gave him substantial relief. He again was not showing signs of alcohol withdrawal and is adamant he hasn't had any alcohol since May, but was extremely anxious. His anxiety is likely precipitating his symptoms. He is not on any medication for generalized anxiety disorder and has stopped taking his Seroquel due to side effects. He has not been sleeping well because of this. I encouraged him to discuss chronic anxiety management with PCP or mental health. In the meantime we will give him prn hydroxyzine for sleep/anxiety with low dose clonazepam temporarily as needed. Given stable labs and a physical exam, I do believe he is stable for discharge home at this time. Return precautions reviewed in detail if any new or worsening symptoms. Of note, the patient had difficulty providing a urine sample here but has not had any issues with urinary retention at home And voided without difficulty this morning, was not complaining of any urinary symptoms or urinary retention. He ultimately had an In-N-Out catheter with about 1000 mL of drainage though the patient had just received 1000 mL of IV fluid. He declined at indwelling catheter but advised to return if urinary retention/inability to void at home at which time he would need catheter. Departure - Departure Disposition: Home, Self Care Clinical Impression: Anxiety Fall Qualifiers: Encounter type: initial encounter Qualified Code(s): W19.XXXA - Unspecified fall, initial encounter Condition: Good Instructions: ED Stress React, ED Weakness UKO Prescriptions: clonazePAM [Clonazepam] 0.25 mg PO BID PRN #6 tab PRN Reason: Anxiety hydrOXYzine HCL [Hydroxyzine HCl] 10 mg PO QPM PRN #10 tablet PRN Reason: insomnia, anxiety Comments: Please schedule follow-up with your primary doctor as soon as possible to discuss your anxiety and generalized weakness. You may benefit from physical therapy for strengthening your legs. Your workup here was otherwise reassuring. Return if you develop a fever or worsening symptoms. I have prescribed you short-term medication to help with sleep and anxiety. Use these only if absolutely necessary as they have side effects as we discussed. It is also not recommended to be on these medications long-term. There are other, better, long-term choices for generalized anxiety disorder. Forms: PCP List Discharge Date/Time: 06/23/24 17:26
[2024-06-23 12:29] LABS: BASOPHILS % (AUTO) 0.2 %; EOSINOPHILS % (AUTO) 0.5 %; HCT - HEMATOCRIT 40.5 % (42.0-52.0); LYMPHOCYTES # (AUTO) 0.6 10^3/uL (1.5-3.5); LYMPHOCYTES % (AUTO) 13.4 %; MEAN CORPUSCULAR HEMOGLOBIN 32.1 pg (27.0-31.0); MEAN CORPUSCULAR HGB CONC 32.1 g/dL (32.0-36.0); MEAN PLATELET VOLUME 10.5 fL (7.4-11.4); MONOCYTES # (AUTO) 0.3 10^3/uL (0.0-1.0); MONOCYTES % (AUTO) 6.4 %; NEUTROPHILS # (AUTO) 3.3 10^3/uL (1.5-6.6); NEUTROPHILS % (AUTO) 79.3 %; PLT - PLATELET COUNT 81 10^3/uL (130-450); RED BLOOD COUNT 4.05 10^6/uL (4.70-6.10); WHITE BLOOD COUNT 4.2 x10^3/uL (4.8-10.8)
[2024-06-23 12:42] LABS: ALBUMIN 4.1 g/dL (3.2-5.5); ALBUMIN/GLOBULIN RATIO 1.6 (1.0-2.2); ALKALINE PHOSPHATASE 91 IU/L (42-121); ALT ALANINE AMINOTRANSFERASE 11 IU/L (10-60); AST ASPARTATE AMINOTRANSFERASE 20 IU/L (10-42); BILIRUBIN,TOTAL 1.5 mg/dL (0.2-1.0); BUN - BLOOD UREA NITROGEN 10 mg/dL (6-20); CALCIUM 9.2 mg/dL (8.5-10.3); CARBON DIOXIDE - CO2 28 mmol/L (21-32); CHLORIDE 104 mmol/L (101-111); CREATININE 0.6 mg/dL (0.6-1.3); ETOH - ETHANOL < 10.0 mg/dL; GFR - MDRD 134 (>89); GLUCOSE 113 mg/dL (74-104); LIPASE 83 U/L (11-82); POTASSIUM 3.6 mmol/L (3.5-4.5); SODIUM 141 mmol/L (135-145); TOTAL PROTEIN 6.7 g/dL (6.4-8.9)
[2024-06-23] MEDS: LIDOCAINE VISCOUS 2% 15 ML UDC MM STA (12:54)
[2024-06-23] MEDS: MAG HYDROX/AL HYDROX/SIMETH 30 ML UDC PO STA (12:54)
[2024-06-23] MEDS: SODIUM CHLORIDE 0.9% 1,000 ML IV STA (14:07)
[2024-06-23] MEDS ORDERED: iohexoL-300 100 ML VIAL ONE (15:38)
[2024-06-23] MEDS: LORazepam 2 MG/ML VIAL IVP STA (15:45)
[2024-06-23 16:22] LABS: BILIRUBIN,URINE NEGATIVE (NEGATIVE); GLUCOSE, URINE (UA) NEGATIVE (NEGATIVE); KETONES,URINE (UA) NEGATIVE (NEGATIVE); LEUKOCYTE ESTERASE, URINE NEGATIVE (NEGATIVE); NITRITE,URINE NEGATIVE (NEGATIVE); OCCULT BLOOD,URINE MODERATE (NEGATIVE); PH,URINE 6.5 PH (5.0-7.5); PROTEIN,URINE NEGATIVE (NEGATIVE); UROBILINOGEN,URINE 0.2 (NORMAL) E.U./dL (NORMAL)
[2024-06-23 16:23] LABS: CLARITY,URINE CLEAR (CLEAR)
[2024-06-23] MEDS: iohexoL-300 100 ML VIAL IVP ONE (16:23)
[2024-06-23 16:35] LABS: AMPHETAMINE SCREEN,URINE NEGATIVE (NEGATIVE); BACTERIA,URINE None Seen /HPF (None Seen); BARBITURATE SCREEN,UR NEGATIVE (NEGATIVE); BENZODIAZEPINES SCREEN, URINE NEGATIVE (NEGATIVE); BUPRENORPHINE SCREEN, URINE NEGATIVE (NEGATIVE); COCAINE SCREEN URINE NEGATIVE (NEGATIVE); METHADONE SCREEN, URINE NEGATIVE (NEGATIVE); METHAMPHETAMINES SCREEN, URINE NEGATIVE (NEGATIVE); OPIATE SCREEN, URINE NEGATIVE (NEGATIVE); OXYCODONE SCREEN, URINE NEGATIVE (NEGATIVE); SQUAMOUS EPITHELIAL CELL,UR NONE SEEN (<= Few); THC CANNABINOID SCREEN, URINE POSITIVE (NEGATIVE); TRICYCLIC ANTIDEPRESSANT,URINE NEGATIVE (NEGATIVE); WBC,URINE 0-3 /HPF (0-3)
--- NOTE | 2024-06-23 16:35 | CT Report ---
PROCEDURE: Abdomen/Pelvis W INDICATIONS: pain CONTRAST: Omni 300 100ml TECHNIQUE: After the administration of intravenous contrast, a CT scan of the abdomen and pelvis was performed. Images were recorded and evaluated at appropriate window settings. Reformats: coronal and sagittal. F or radiation dose reduction, the following was used: automated exposure control, adjustment of mA and /or kV according to patient size. COMPARISON: 05/23/2024 FINDINGS: Image quality: Diagnostic. Lower chest: Unremarkable. Liver: Moderate diffuse hepatic steatosis. No solid masses. Gallbladder: Absent Biliary tree: No intrahepatic or extrahepatic dilation, accounting for age. Spleen: No splenomegaly. Pancreas: No pancreatic ductal dilation. Adrenals: No adrenal nodule. Kidneys and ureters: No hydronephrosis. No renal cystic lesion which requires follow up. No solid mas s. Stomach, bowel and peritoneum: No gastric or small bowel dilation. No abnormal wall thickening. No pa thologic free fluid. Mild diverticulosis without evidence of acute diverticulitis. Lymph nodes: No central or retroperitoneal adenopathy. Vessels: No infrarenal aortic aneurysm. Patent portal vein. PELVIS Reproductive organs: Unremarkable. Bladder: Bladder is now decompressed with diffuse wall thickening. Pelvic lymph nodes: No pelvic adenopathy by size criteria. Bones: No aggressive osseous abnormality. Other: Fat-containing left inguinal hernia. IMPRESSION: 1. No acute abdominal process noted. 2. Bladder is now decompressed with diffuse wall thickening. 3. Moderate diffuse hepatic steatosis. 4. Mild diverticulosis. 5. Fat-containing left inguinal hernia. Reviewed by: Syed Chau MD on 06/23/2024 4:34 PM PDT Approved by: Syed Chau MD on 06/23/2024 4:34 PM PDT Station ID: [id number]
[2024-06-23 17:06] VITALS: BP 148/69; O2SAT 100
== END 2024-06-23 17:26 | disposition home or self-care (01) ==
LOC: EDUNIT# → ED 12:06
DX: S39.92XA Unspecified injury of lower back, initial encounter (principal); W18.30XA Fall on same level, unspecified, initial encounter; Y92.009 Unspecified place in unspecified non-institutional (private) residence as the place of occurrence of the external cause; R29.6 Repeated falls; R10.10 Upper abdominal pain, unspecified; R11.2 Nausea with vomiting, unspecified; F41.9 Anxiety disorder, unspecified; Z91.81 History of falling; Z79.899 Other long term (current) drug therapy
CPT/HCPCS: 36415; 74177; 80053; 80306; 81001; 83605; 83690; 84484; 85025; 93005; 99284; A9270; G0480; J2060; Q9967; 81003; 82077; 87086

== ENCOUNTER 2024-11-17 11:59 | Inpatient (IN) ==
[2024-11-17 12:38] LABS: BASOPHILS % (AUTO) 0.7 %; EOSINOPHILS % (AUTO) 0.7 %; HCT - HEMATOCRIT 43.7 % (42.0-52.0); HGB - HEMOGLOBIN 14.6 g/dL (14.0-18.0); LYMPHOCYTES # (AUTO) 0.7 10^3/uL (1.5-3.5); LYMPHOCYTES % (AUTO) 15.9 %; MEAN CORPUSCULAR HGB CONC 33.4 g/dL (32.0-36.0); MEAN CORPUSCULAR VOLUME 98.6 fL (80.0-94.0); MEAN PLATELET VOLUME 9.9 fL (7.4-11.4); MONOCYTES # (AUTO) 0.2 10^3/uL (0.0-1.0); MONOCYTES % (AUTO) 5.9 %; NEUTROPHILS # (AUTO) 3.1 10^3/uL (1.5-6.6); NEUTROPHILS % (AUTO) 76.6 %; PLT - PLATELET COUNT 116 10^3/uL (130-450); RED BLOOD COUNT 4.43 10^6/uL (4.70-6.10); RED CELL DISTRIBUTION WIDTH 14.5 % (12.0-15.0); WHITE BLOOD COUNT 4.1 x10^3/uL (4.8-10.8)
[2024-11-17 12:51] LABS: ALBUMIN 4.5 g/dL (3.2-5.5); ALBUMIN/GLOBULIN RATIO 1.8 (1.0-2.2); CALCIUM 8.9 mg/dL (8.5-10.3); CREATININE 0.7 mg/dL (0.6-1.3); POTASSIUM 3.6 mmol/L (3.5-4.5)
--- NOTE | 2024-11-17 13:07 | ED Physician Documentation ---
PD HPI SYNCOPE Stated complaint Stated Complaint: DIZZINESS Chief complaint Chief Complaint: Neuro History obtained from History obtained from: Patient History of Present Illness Witnessed: Unwitnessed Timing - onset: Last night Duration: Unknown Preceding symptoms: Nausea / vomiting, Light headed and Other (profound dizziness) Associated symptoms: Nausea / vomiting Contributing factors: Other (The patient has a history of vertigo and has developed dizziness for 3 days.) Injury occurred: Fell (Patient is complaining of pain to his right shoulder and his low back.); No Head injury or Neck injury 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 He has had a new episode and that it dizziness has been profound over the last several days he has developed some nausea and vomiting and he has had a syncopal episode last night falling injuring his right shoulder and lower back. He denies any injury to his head or neck. He is not taking blood thinners. Gerardo Coma Scale Assess Eye opening: Spontaneous Verbal response: Oriented Motor response: Obeys Commands Total score: 15 Review of Systems Constitutional Denies: Fever or Chills Cardiovascular Denies: chest pain or palpitations Respiratory Denies: Cough Gastrointestinal Reports: Nausea and Vomiting; Denies: Abdominal pain Musculoskeletal Reports: Back pain and Joint pain (R shoulder) Neurological Denies: Headache Meds/Allgy Home Medications Ambulatory Orders Medication Instructions Recorded Confirmed omeprazole 20 mg capsule,delayed 20 mg PO BID 11/17/24 11/17/24 release Allergies Allergies Allergy/AdvReac Type Severity Reaction Status Date / Time ampicillin Allergy Unknown Unknown Verified 11/17/24 12:08 Cephalosporins Allergy Unknown Unknown Verified 11/17/24 12:08 doxycycline Allergy Unknown Verified 11/17/24 12:08 ibuprofen Allergy Emesis Verified 11/17/24 12:08 methotrexate Allergy Anxiety Verified 11/17/24 12:08 Penicillins Allergy Unknown Verified 11/17/24 12:08 prednisone Allergy Hallucinati Verified 11/17/24 12:08 ons quetiapine (From [email or web address]) AdvReac Unknown Hallucinati Verified 11/17/24 12:08 ons [facility] Medical History Medical History (Updated 11/17/24 @ 16:35 by Marco Kong MD) Hx of vertigo Hiatal hernia Hx of renal calculi History of diverticulitis Psoriatic arthritis Surgical History Surgical History (Updated 11/17/24 @ 12:17 by Tayo Watts, RN) History of bladder repair surgery Social History Social History (Updated 11/17/24 @ 12:16 by Tayo Watts RN) Smoking Status: Never smoker Second hand tobacco smoke exposure: No Do you dip or chew tobacco?: No Do you vape?: No Living arrangement: At home Living Condition: Alone Support Person: Yes Relationship: Friend Level: Independent Do you feel safe in your home environment?: Yes Suffered physical, verbal, emotional, or financial abuse?: No History of Abuse: No ETOH Use: None Frequency: Occasional Substance Use: cannabis (any form) Substance Use Details: gummies - appetite and pain Are you sexually active?: No POLST Patient has POLST: No Exam Exam 69-year-old male laying supine on a gurney appears unaffected until he is moved. Even slight movement of the head results and significant dizziness and nausea. Patient is complaining of pain to the right shoulder and lower back with movement he appears to be in pain. Constitutional normal general appearance and average body habitus HENMT normocephalic, head/scalp atraumatic and hearing grossly normal bilaterally Eyes PERRL and EOMs intact bilaterally There is nystagmus bilaterally Neck/C-Spine visual inspection normal and trachea midline Respiratory breath sounds equal bilaterally, normal respiratory effort and clear to auscultation bilaterally Cardiovascular normal heart rate noted, regular rhythm noted and no murmur Gastrointestinal abdomen normal to inspection, abdomen soft to palpation and nontender to palpation Genitourinary no CVA tenderness Back/Pelvis There is lower lumbar paraspinous muscle point tenderness bilaterally Extremities There is tenderness to the right shoulder but with fair movement of the shoulder joint. Neurology fisher swordfish II-XII intact Psychiatry mental status grossly normal, oriented x3, thought process normal, cooperative, affect normal, psychomotor activity normal and memory normal Results Vitals Vitals: Vital Signs - 24 hr 11/17/24 12:09 11/17/24 12:45 11/17/24 14:57 Temperature 37 C Temperature Source Temporal Artery Scan Pulse Rate 92 88 Respiratory Rate 16 18 Blood Pressure 156/99 H 146/99 H O2 Saturation 97 97 O2 Source Room air Room air Pain Intensity 7 10 11/17/24 15:51 Temperature Temperature Source Pulse Rate Respiratory Rate Blood Pressure O2 Saturation O2 Source Pain Intensity 7 Oxygen O2 Source Room air EKG (time done) 12:04: EKG releavant findings:: EKG personally interpreted by author of this note. Relevant findings are: Rate: Rate (enter#) (90) [place]: Other (early transition ) Ischemia: Normal ST segments Compare to prior EKG: Changed from prior EKG (SPT 06/23/24 rate has increased) Computer interpretation: Agree with computer Labs Labs: Laboratory Tests 11/17/24 11/17/24 12:23 12:32 WBC 4.1 L RBC 4.43 L Hgb 14.6 Hct 43.7 MCV 98.6 H MCH 33.0 H MCHC 33.4 RDW 14.5 Plt Count 116 L MPV 9.9 Neut # (Auto) 3.1 Lymph # (Auto) 0.7 L [place] # (Auto) 0.2 Eos # (Auto) 0.0 Baso # (Auto) 0.0 Absolute Nucleated RBC 0.00 Nucleated RBC % 0.0 Sodium 141 Potassium 3.6 Chloride 106 Carbon Dioxide 24 Anion Gap 11.0 BUN 13 Creatinine 0.7 Estimated GFR (MDRD) 111 Glucose 93 POC Whole Bld Glucose 97 Calcium 8.9 Total Bilirubin 1.0 AST 22 ALT 13 Alkaline Phosphatase 74 Troponin I High Sens 3.0 Total Protein 7.0 Albumin 4.5 Globulin 2.5 Albumin/Globulin Ratio 1.8 Lipase 58 Rads (name of study) CT head: Relevant Findings:: Final report received and EMP independent interpretation of test (No bleed) Interpretation: Impression: 1. No acute intracranial process. Moderate atrophy and chronic microvascular ischemic changes. shoulder: Relevant Findings:: Final report received and EMP independent interpretation of test (No fx) Interpretation: Impression: No acute right shoulder fracture or dislocation. Mild right shoulder joint osteoarthritis. lumbar spine: Relevant Findings:: Final report received and EMP independent interpretation of test (L 5 looks like old compression fx) Interpretation: Impression: No acute lumbar spine vertebral body compression fracture or spondylolisthesis. Degenerative disc disease throughout the lumbar spine as above. Procedures IVC sono (time) 1300: Bedside IVC sono: IVC measures (cm) (0.83) and Dehydration (est 2 liter deficit) PD Medical Decision Making ED course Complexity details: reviewed old records, reviewed results, re-evaluated patient, considered differential and d/w patient Reviewed Lab Results: We reviewed a complete blood count showing a white blood cell count depressed at 4.1 similar to what the patient has had previously hemoglobin hematocrit and were similar to the patient's prior at 14.6 and 43.7 platelets were depressed at 116,000 patient's had similar previously chemistries show today normal electrolytes normal kidney and liver function these laboratory studies are similar to what the patient has had previously and do not contribute to a specific diagnosis. ED course: Jose Vogel is a 69-year-old male presents to the emergency department with acute vertigo, nausea and vomiting as well as a syncopal episode last night. He presented by ambulance. He is injured his right shoulder and his lower back and a fall at home. He found himself on the floor at home. He has had a similar episode previously which was attributed to labyrinthitis. Here in the emergency department today he is found to be dehydrated and his electrolytes are normal. He is treated with meclizine, Zofran and Toradol. As well as saline. He has some improvement in his dizziness but with any movement of his head he has profound symptoms. After hours in the emergency department patient continues to have symptoms and he is unsafe for discharge to home. Discharge Plan Discharge Patient Disposition: ED Place in Observation Condition: Fair Clinical Impression: Vertigo, Nausea, Dehydration Shoulder contusion Qualifiers: Encounter type: initial encounter Laterality: right Qualified Code(s): S40.011A - Contusion of right shoulder, initial encounter Acute lumbar myofascial strain Qualifiers: Encounter type: initial encounter Qualified Code(s): S39.012A - Strain of muscle, fascia and tendon of lower back, initial encounter Prescriptions: No Action omeprazole 20 mg capsule,delayed release(DR/EC) 20 mg PO BID Patient Comments: take 1 capsule by mouth twice a day 30 MINUTES BEFORE A MEAL Print Language: Indonesian Stand Alone Forms: PCP List
[2024-11-17] MEDS: SODIUM CHLORIDE 0.9% 1,000 ML IV STA (13:10)
[2024-11-17] MEDS: MECLIZINE 12.5 MG TABLET PO STA (13:36)
[2024-11-17] MEDS: ONDANSETRON ODT 4 MG TABLET TL STA (13:37)
--- NOTE | 2024-11-17 13:52 | XRAY Report ---
PROCEDURE: XR Lumbar Spine 2-3V INDICATIONS: ssyncope fall back injury TECHNIQUE: 3 views of the lumbar spine were acquired. COMPARISON: None. FINDINGS: Surgical change: None. Bones: 5 [id number] vertebrae are present. There is straightening of normal lumbar lordosis. De generative endplate changes, loss of disc height and bilateral facet arthrosis throughout lumbar spin e is seen most notably at L5-S1 level. No vertebral body compression fractures. No suspicious bony l esions. Soft tissues: Overlying bowel gas pattern is normal. No suspicious soft tissue calcifications. IMPRESSION: No acute lumbar spine vertebral body compression fracture or spondylolisthesis. Degenerative disc dis ease throughout lumbar spine as above. Reviewed by: Manuel Angela MD on 11/17/2024 1:50 PM PST Approved by: Manuel Angela MD on 11/17/2024 1:50 PM PST Station ID: [id number]
--- NOTE | 2024-11-17 13:54 | XRAY Report ---
PROCEDURE: XR Shoulder 2+V RT INDICATIONS: fall R shoulder pain TECHNIQUE: 3 views of the shoulder were acquired. COMPARISON: None. FINDINGS: Bones: No fractures or dislocations. Mild acromioclavicular joint and glenohumeral joint osteoarthri tic changes are seen. No suspicious bony lesions. Visualized ribs appear intact. Soft tissues: No suspicious soft tissue calcifications. The visualized lungs are within normal limi ts. IMPRESSION: No acute right shoulder fracture or dislocation. 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 Reviewed by: Manuel Angela MD on 11/17/2024 1:53 PM PST Approved by: Manuel Angela MD on 11/17/2024 1:53 PM PST Station ID: [id number]
--- NOTE | 2024-11-17 14:01 | CT Report ---
PROCEDURE: CT Head WO INDICATIONS: severe vertigo/syncope head injury TECHNIQUE: Noncontrast 4.5 mm thick angled axial sections acquired from the foramen magnum to the vertex. For r adiation dose reduction, the following was used: automated exposure control, adjustment of mA and/or kV according to patient size. COMPARISON: CT head 2017 FINDINGS: Image quality: Excellent. The ventricular system and cortical sulci demonstrate atrophy, consistent for patient's stated age. There are areas of hypodensity in the periventricular and subcortical white matter. There is no acut e intra or extra-axial fluid collection. No acute hemorrhage, mass lesion or midline shift. Brainst em is unremarkable. Globes are symmetrical. Sinuses are aerated. Osseous structures are intact. IMPRESSION: 1. No acute intracranial process. 2. Moderate atrophy and chronic microvascular ischemic changes. Reviewed by: Andreia Palmer MD on 11/17/2024 2:00 PM PST Approved by: Andreia Palmer MD on 11/17/2024 2:00 PM PST Station ID: [id number]
[2024-11-17] MEDS: KETOROLAC 30 MG/ML VIAL IVP STA (14:57)
[2024-11-17] MEDS: ONDANSETRON 4 MG/2 ML VIAL IVP STA (16:22)
--- NOTE | 2024-11-17 17:14 | HISTORY & PHYSICAL EXAMINATION ---
Chief Complaint Chief Complaint Chief Complaint: Syncope and collapse History of Present Illness Admitted From Admitted From:: Home History Obtained From History obtained from: Patient interview, EMR Exam Limitations: None History of Present Illness HPI Comment/Other: 69-year-old male Hx vertigo, hiatal hernia, diverticulitis, psoriatic arthritis presents to the hospital with increasing episodes of dizziness. He reports room spinning dizziness, causing nausea and occasional vomiting. He reports 1 episode where he got up too fast and walked into the next room and passed out, waking up on the floor. This was what led to the decision to present to the hospital. He reports spasmic back pain in his middle back In the ER, L-spine x-ray, shoulder x-ray, CT head were performed and found to be negative. CBC, CMP unremarkable. Hospitalist was contacted for observation for syncope and collapse, intractable back pain, rule out cerebellar stroke Meds/Allgy Home Medications Ambulatory Orders Medication Instructions Recorded Confirmed omeprazole 20 mg capsule,delayed 20 mg PO BID 11/17/24 11/17/24 release Allergies Allergies Allergy/AdvReac Type Severity Reaction Status Date / Time ampicillin Allergy Unknown Unknown Verified 11/17/24 12:08 Cephalosporins Allergy Unknown Unknown Verified 11/17/24 12:08 doxycycline Allergy Unknown Verified 11/17/24 12:08 ibuprofen Allergy Emesis Verified 11/17/24 12:08 methotrexate Allergy Anxiety Verified 11/17/24 12:08 Penicillins Allergy Unknown Verified 11/17/24 12:08 prednisone Allergy Hallucinati Verified 11/17/24 12:08 ons quetiapine (From Seroquel) AdvReac Unknown Hallucinati Verified 11/17/24 12:08 ons [facility] Medical History Medical History (Updated 11/17/24 @ 18:12 by Colt Schneider DNP) Hx of vertigo Hiatal hernia Hx of renal calculi History of diverticulitis Psoriatic arthritis Surgical History Surgical History (Updated 11/17/24 @ 12:17 by Tayo Watts RN) History of bladder repair surgery Social History Social History (Updated 11/17/24 @ 12:16 by Tayo Watts RN) Smoking Status: Never smoker Second hand tobacco smoke exposure: No Do you dip or chew tobacco?: No Do you vape?: No Living arrangement: At home Living Condition: Alone Support Person: Yes Relationship: Friend Level: Independent Do you feel safe in your home environment?: Yes Suffered physical, verbal, emotional, or financial abuse?: No History of Abuse: No ETOH Use: None Frequency: Occasional Substance Use: cannabis (any form) Substance Use Details: gummies - appetite and pain Are you sexually active?: No POLST Patient has POLST: No Review of Systems Status of ROS: 10 or more systems reviewed and unremarkable except as noted in history and below Constitutional Denies: Fever or Chills Ears, nose, mouth, and throat Reports: Vertigo; Denies: Ear pain or Ear discharge Cardiovascular Denies: Irregular heart rate, chest pain, palpitations or shortness of breath with exertion Respiratory Denies: Shortness of breath Gastrointestinal Reports: Nausea and Vomiting; Denies: Abdominal pain or Abdominal distention Musculoskeletal Reports: Back pain Neurological Reports: Vertigo; Denies: General weakness Exam Constitutional normal general appearance and no apparent distress HENMT normocephalic and head/scalp atraumatic Eyes PERRL Neck/C-Spine visual inspection normal Lymph no lymphadenopathy noted Chest inspection of chest normal Respiratory breath sounds equal bilaterally and normal respiratory effort Cardiovascular normal heart rate noted, regular rhythm noted and peripheral pulses 2+ throughout Gastrointestinal abdomen normal to inspection Genitourinary bladder normal to palpation Back/Pelvis spine normal to inspection Extremities normal to inspection Neurology GCS 15 Psychiatry oriented x3 Skin Scattered psoriatic rash Conclusion/Plan Problem List (1) Syncope and collapse: Plan: Reports history of vertigo, symptoms becoming worse. Describes room spinning dizziness. This vertigo has caused significant nausea and vomiting. MRI, echo PT/OT Telemetry I suspect some small component of dehydration, I have ordered 1 L NS to be infused overnight (2) Acute lumbar myofascial strain: Plan: Spinal x-rays were negative for acute abnormality. Pain is described as spasmic, likely myofascial strain. No radiation to his legs, no urinary, fecal Incontinence or retention Pain was severe at time of my interview in spite of IV Toradol Dilaudid 0.5 mg every 2 hours as needed's for severe pain Oxycodone 5 mg p.o. as needed moderate pain Scheduled Tylenol Scheduled Flexeril Qualifiers: Encounter type: initial encounter Qualified Code(s): S39.012A - Strain of muscle, fascia and tendon of lower back, initial encounter Plan Placed in observation DNR His friend Emily is his surrogate decision-maker Lab Results Lab results reviewed: Yes 11/17/24 12:32 11/17/24 12:32 Core Measures Anticipated LOS I expect patient to be DC'd or transferred within 96 hours.: Yes DVT/VTE - Prophylaxis VTE/DVT Prophylaxis med ordered at admit?: Yes
[2024-11-17] MEDS ORDERED: oxyCODONE 5 MG TABLET PO PRN (18:05)
[2024-11-17] MEDS: SODIUM CHLORIDE 0.9% 1,000 ML IV SCH (18:34)
[2024-11-17] MEDS: CYCLOBENZAPRINE 10 MG TABLET PO SCH (18:40)
[2024-11-17] MEDS: ACETAMINOPHEN 500 MG TABLET PO SCH (18:40)
[2024-11-17] MEDS: PROCHLORPERAZINE 10 MG/2 ML VIAL IVP PRN (18:41)
[2024-11-17] MEDS: MECLIZINE 12.5 MG TABLET PO PRN (18:52)
[2024-11-17] MEDS: HYDROmorphone 0.5 MG/0.5 ML SYRINGE IVP PRN (19:18)
[2024-11-17] MEDS: PANTOPRAZOLE 40 MG TABLET PO SCH (22:28)
[2024-11-18] MEDS: ONDANSETRON ODT 4 MG TABLET TL PRN (01:27)
[2024-11-18] MEDS: SODIUM CHLORIDE FLUSH 0.9% 10 ML SYRINGE IVP SCH (01:34)
[2024-11-18] MEDS ORDERED: hydrOXYzine PAMOATE 25 MG CAPSULE PO PRN ×2 (02:21→15:02)
--- NOTE | 2024-11-18 03:01 | PROVIDER PROGRESS NOTE ---
Irrigator Head Note Irrigator Head Note Irrigator Head Note: RN paged "Pt admitted for N/V, Dizziness & Fall @ home. Pt very anxious, 12.5 mg Vistaril ordered, only comes in a 25 mg capsule. Can we change the dose or order ativan please. Thanks" elderly patient with dizziness and on meclizine already at increase risk for delirium + fall. concerned about addition of ativan. will ordered one time judicious low dose ativan and day team to reassess if patient can tolerate additional Ruhong Mason Aiken
[2024-11-18] MEDS: LORazepam 2 MG/ML VIAL IVP PRN (03:28)
[2024-11-18] MEDS: ONDANSETRON 4 MG/2 ML VIAL IVP PRN (03:29)
[2024-11-18] MEDS: CYCLOBENZAPRINE 10 MG TABLET PO SCH (03:30)
[2024-11-18 05:38] LABS: BASOPHILS % (AUTO) 0.7 %; EOSINOPHILS % (AUTO) 2.1 %; HCT - HEMATOCRIT 37.8 % (42.0-52.0); HGB - HEMOGLOBIN 12.7 g/dL (14.0-18.0); LYMPHOCYTES % (AUTO) 25.8 %; MEAN CORPUSCULAR HEMOGLOBIN 33.8 pg (27.0-31.0); MEAN CORPUSCULAR HGB CONC 33.6 g/dL (32.0-36.0); MEAN CORPUSCULAR VOLUME 100.5 fL (80.0-94.0); MONOCYTES % (AUTO) 8.5 %; NEUTROPHILS % (AUTO) 62.9 %; PLT - PLATELET COUNT 64 10^3/uL (130-450); RED BLOOD COUNT 3.76 10^6/uL (4.70-6.10); RED CELL DISTRIBUTION WIDTH 14.1 % (12.0-15.0); WHITE BLOOD COUNT 2.8 x10^3/uL (4.8-10.8)
[2024-11-18 05:40] LABS: ABNORMAL LYMPHS % (MANUAL) 0 %
[2024-11-18 05:52] LABS: CALCIUM 7.8 mg/dL (8.5-10.3); CREATININE 0.7 mg/dL (0.6-1.3); POTASSIUM 3.3 mmol/L (3.5-4.5)
[2024-11-18 06:05] LABS: BAND NEUTROPHILS % (MANUAL) 1 %; DIFFERENTIAL COMMENT MANUAL DIFFERENTIAL; EOSINOPHILS # (MANUAL) 0.1 10^3/uL (0-0.7); LYMPHOCYTES # (MANUAL) 0.6 10^3/uL (1.5-3.5); LYMPHOCYTES % (MANUAL) 22 %; MONOCYTES # (MANUAL) 0.1 10^3/uL (0.0-1.0); PLATELET ESTIMATE, MANUAL DECREASED (<130,000) (NORMAL); RBC MORPHOLOGY (MULTIPLE) NORMAL APPEARANCE (NORMAL)
[2024-11-18] MEDS: ENOXAPARIN 40 MG/0.4 ML SYRINGE SUBQ SCH (09:52)
--- NOTE | 2024-11-18 10:10 | PHARMACY PROGRESS NOTE ---
Best Possible Medication History Admit Date and Time: 11/17/24 1710 Home Medications Medication Instructions Recorded Confirmed Type omeprazole 20 mg capsule,delayed 20 mg PO BID 11/17/24 11/17/24 History release Processed by: Nursing Medications reviewed in ED?: Yes [facility] Statement: As the person ultimately responsible for medication therapy, providers are able to order a medication from an existing home medication list in [facility] via the "Reconcile Routine" prior to Confirmation of that medication by network support. Such practice is discouraged except when the physician, in their clinical judgment, deems that a medical need exists for a medication without regard to previous use.
--- NOTE | 2024-11-18 13:35 | OT Plan of Care ---
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 In the ER, L-spine x-ray, shoulder x-ray, CT head were performed and found to be negative. CBC, CMP unremarkable. Hospitalist was contacted for observation for syncope and collapse, intractable back pain, rule out cerebellar stroke - Pt refusing MRI at this time. Met supine in bed, A&Ox4, willing to participate. Pt endorses dizziness and nausea during session - increased dizziness with position change which does not resolve and appears persistent. Difficult to assess nystagmus - does not appear acute with position change. Noted ortho static drop with sit to stand as above - Resolving with time. Rn aware. Eply performed 2/2 pts PMHx with vertigo - Does not appear to be causing this acute dizziness. Pts symptoms appear cardiac or cerebellar related. Encouraged to undergo MRI and follow up with outpt PT for vestibular rehab needs. MMT, visual tracking, and sensation appear WFL per assessment. Pt educated on plan and in agreement. No further skilled OT needed at acute level of care - pt reports assistance from family/friends upon d/c. Rec d/c home with outpatient services. OT Inpatient Plan PLAN Treatment Frequency: Evaluation only, no further O.T. Duration: Until discharge -Discharge Recommendations Discharge Location: Previous Living Situation Support/Services Needed: With assist and Outpt. O.T. Recommended Equipment: Raised Toilet Seat, Commode, Grab bars, Shower/bath chair, Adaptive Self Care Devices and Other Transport Needs at Discharge: Personal vehicle
--- NOTE | 2024-11-18 13:40 | PT Plan of Care ---
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 MEDICAL/SURGICAL HISTORY Medical History (Updated 11/17/24 @ 18:12 by Colt Schneider DNP) Hx of vertigo Hiatal hernia Hx of renal calculi History of diverticulitis Psoriatic arthritis Surgical History (Updated 11/17/24 @ 12:17 by Tayo Watts RN) History of bladder repair surgery BALANCE/FUNCTIONAL RESULTS Sitting Balance: Good Standing Balance: Good Yao Balance Test Interpretation: Medium Fall Risk Balance and Functional Test Comments: Jackelin-Hallpike negative for nystagmus however d/t pt reported h/o BPPV and stated increased dizziness with L head rotation, Cruz maneuver completed with L rotation. No increased nor decrease in symptoms. Clinical impression of orthostasis, no clinical s/sx of BPPV at this time. ASSESSMENT Assessment: Pt is a 69yo M referred for PT eval d/t syncopal episode resulting in GLF. Of note pt has h/o of similar and was hospitalized in May 2024 with syncope and fall resulting in coccyx and pubic rami fractures s/p cystoscopy on 05/24/24. Pt lives at home alone and is reportedly indep at baseline. Today pt states he normally walks 1-2 miles daily. Upon PT eval, pt reports dizziness in all positions and nothing increases nor decreases symptoms. Symptoms are not waxing/waning and are not increased with head turns. Positive orthostasis with 34 point systolic drop from seated to standing. 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 For this reason, Cruz completed with L head rotation. No change in symptoms and no nystagmus present. Pt reports continued dizziness and requests to remain in bed. Nausea but no emesis. At end of session pt left supine with needs met, in reach. Pt may benefit from PT in acute setting. When medically clear, PT rec dc home with CG support and follow up with OP vestibular PT. GOALS Improve supine to sit to:: Independent Improve sit to stand to:: Independent Improve pivot transfer ability to:: Independent Improve sit to supine to:: Independent Improve gait ability to:: Ind Advance Assistive Device to:: None Increase distance walked to (in feet):: 100 Improve Sitting Balance to:: Good PLAN Frequency: 1-2x/day Duration: Until goals are met DISCHARGE RECOMMENDATIONS Discharge Location: Previous Living Situation Support/Services Needed: With assist DC Equipment Recommended: Front wheeled walker Other Discharge Equipment: may need FWW Transport Needs at Discharge: Personal vehicle
[2024-11-18] MEDS ORDERED: MECLIZINE 12.5 MG TABLET PO PRN (13:42)
[2024-11-18] MEDS: SODIUM CHLORIDE 0.9% 1,000 ML IV ONE (14:09)
--- NOTE | 2024-11-18 14:59 | PROVIDER PROGRESS NOTE ---
Subjective Prog Note Date Prog Note Date: 11/18/24 Subjective Pt reports feeling: No change Current Medications Current Medications Current Medications: Current Medications Generic Name Dose Route Start Last Admin Trade Name Freq PRN Reason Stop Dose Admin Acetaminophen 1,000 mg 11/17/24 18:05 11/18/24 09:52 Acetaminophen 500 Mg Tablet PO 1,000 mg Q8H ROSA Administration Cyanocobalamin 500 mcg 11/19/24 09:00 Cyanocobalamin 500 Mcg Tablet PO DAILY ROSA Cyclobenzaprine HCl 10 mg 11/18/24 04:00 11/18/24 12:18 Cyclobenzaprine 10 Mg Tablet PO 10 mg Q8H ROSA Administration Enoxaparin Sodium 40 mg 11/18/24 09:00 11/18/24 09:52 Enoxaparin 40 Mg/0.4 Ml Syringe SUBQ 40 mg DAILY ROSA Administration Hydromorphone HCl 0.5 mg 11/17/24 18:45 11/18/24 12:18 Hydromorphone 0.5 Mg/0.5 Ml Syringe IVP 0.5 mg Q2H PRN Administration Severe Pain (Level 7-10) Lorazepam 0.25 mg 11/18/24 02:58 11/18/24 03:28 Lorazepam 2 Mg/Ml Vial IVP 11/19/24 02:57 0.25 mg ONCE PRN Administration Anxiety Meclizine HCl 25 mg 11/18/24 13:42 Meclizine 12.5 Mg Tablet PO Q6HR PRN Dizziness Ondansetron HCl 4 mg 11/17/24 18:05 11/18/24 01:27 Ondansetron Odt 4 Mg Tablet TL 4 mg Q6HR PRN Administration Nausea / Vomiting Ondansetron HCl 4 mg 11/17/24 18:05 11/18/24 10:45 Ondansetron 4 Mg/2 Ml Vial IVP 4 mg Q6HR PRN Administration Nausea / Vomiting Oxycodone HCl 5 mg 11/17/24 18:05 Oxycodone 5 Mg Tablet PO Q4HR PRN Pain 5 to 7 Pantoprazole Sodium 40 mg 11/17/24 21:00 11/18/24 09:53 Pantoprazole 40 Mg Tablet PO 40 mg BID [facility] Administration Multivit/Folic Acid/Iron 1 tab 11/19/24 08:00 Vitamin Tablet PO DAILYWM [facility] Prochlorperazine Edisylate 10 mg 11/17/24 18:29 11/17/24 18:41 Prochlorperazine 10 Mg/2 Ml Vial IVP 10 mg Q6HR PRN Administration Nausea / Vomiting Sodium Chloride 10 ml 11/17/24 18:05 Sodium Chloride Flush 0.9% 10 Ml Syringe IVP PRN PRN NEEDED PER PROVIDER ORDERS Sodium Chloride 10 ml 11/18/24 01:00 11/18/24 09:53 Sodium Chloride Flush 0.9% 10 Ml Syringe IVP Not Given 0100,0900,1700 [facility] Objective Vital Signs/Intake & Output Reviewed Vital Signs: Yes Vital Signs: Vital Signs x48h Temp Pulse Pulse Pulse Pulse Resp BP 11/18/24 13:26 11/18/24 12:27 36.5 C 70 20 138/82 H 11/18/24 10:00 75 85 68 11/18/24 07:39 36.6 C 63 20 131/83 H BP BP BP Pulse Ox 11/18/24 13:26 149/84 H 118/83 11/18/24 12:27 98 11/18/24 10:00 147/83 H 113/73 149/84 H 11/18/24 07:39 97 Intake & Output: Intake & Output 11/15/24 11/16/24 11/17/24 11/18/24 23:59 23:59 23:59 23:59 Intake Total 1600 / 1600 1220 / 1220 Balance 1600 / 1600 1220 / 1220 Weight (kg) 78.5 kg Objective General Appearance: positive No acute distress, Alert and Anxious Eyes Bilateral: positive PERRL ENT: positive Dry mucous membranes Neck: positive No JVD Respiratory: positive Breath sounds nml Cardiovascular: positive Regular rate & rhythm Abdomen: positive Non-tender Skin: positive Color nml Extremities: positive Non-tender Neurologic/Psychiatric: positive Oriented x3 Lab Results 11/18/24 05:30 11/18/24 05:30 Other Labs: Lab Results x24hrs 11/18/24 Range/Units 05:30 WBC 2.8 L (4.8-10.8) x10^3/uL RBC 3.76 L (4.70-6.10) 10^6/uL Hgb 12.7 L (14.0-18.0) g/dL Hct 37.8 L (42.0-52.0) % MCV 100.5 H (80.0-94.0) fL MCH 33.8 H (27.0-31.0) pg MCHC 33.6 (32.0-36.0) g/dL RDW 14.1 (12.0-15.0) % Plt Count 64 L (130-450) 10^3/uL MPV 10.0 (7.4-11.4) fL Neut # (Auto) Not Reportable Lymph # (Auto) Not Reportable Vilas # (Auto) Not Reportable Eos # (Auto) Not Reportable Baso # (Auto) Not Reportable Absolute Nucleated RBC Not Reportable Total Counted 100 Band Neuts % (Manual) 1 (0 - 10) % Abnorm Lymph % (Manual) 0 % Nucleated RBC % Not Reportable Neutrophils # (Manual) 2.0 (1.5-6.6) 10^3/uL Lymphocytes # (Manual) 0.6 L (1.5-3.5) 10^3/uL Monocytes # (Manual) 0.1 (0.0-1.0) 10^3/uL Eosinophils # (Manual) 0.1 (0-0.7) 10^3/uL Basophils # (Manual) 0.0 (0-0.1) 10^3/uL Differential Comment MANUAL DIFFERENTIAL Platelet Estimate DECREASED (<130,000) (NORMAL) RBC Morph Micro Appear NORMAL APPEARANCE (NORMAL) Sodium 134 L (135-145) mmol/L Potassium 3.3 L (3.5-4.5) mmol/L Chloride 104 (101-111) mmol/L Carbon Dioxide 21 (21-32) mmol/L Anion Gap 9.0 (6-13) BUN 17 (6-20) mg/dL Creatinine 0.7 (0.6-1.3) mg/dL Estimated GFR (MDRD) 111 (>89) Glucose 94 (74-104) mg/dL Calcium 7.8 L (8.5-10.3) mg/dL Vitamin B12 100 L (180-914) pg/mL Folate 5.3 L (5.90 - >24.8) ng/mL Assessment/Plan Problem List (1) Syncope and collapse: Impression: Reports history of vertigo, symptoms becoming worse. Describes room spinning dizziness. This vertigo has caused significant nausea and vomiting. MRI, echo PT/OT Telemetry 11/18/2024: Echo has been performed. Patient has history of PTSD and claustrophobia which will complicate getting an MRI. The only other MRI he has ever had was under general anesthesia, which we are not capable of doing at this hospital. PT/OT evaluated, they report that his vertigo symptoms did not improve for worsen with any of the maneuvers that they attempted. I have increased his meclizine to 25 mg p.o. every 6 as needed. I am working with MRI, nursing, anesthesia to figure out a course of action to obtain an MRI to rule out cerebellar stroke without using general anesthesia. If MRI is capable of monitoring his heart rate, I will place him on a Precedex drip and give him a dose of Ativan. He will go to MRI escorted by an ICU nurse. If that is not possible, we may attempt giving him a cocktail of Ativan, Benadryl, Haldol for anxiolysis If we are unable to perform this MRI, and cannot find any other cause of his symptoms, we will need to reach out to an outside facility for potential neurology input or for MRI under general sedation. Care of this patient, Chart review, med orders to support successfully obtaining MRI, planning with multiple departments including anesthesia, MRI, nursing has taken a significant amount of time. Total time spent on this patient in excess of 65 minutes 1625: After discussion with all parties involved, current plan is to administer 1 mg IV Ativan and 25 mg IV Benadryl now, and plan for another dose of IV Ativan when he is called back to MRI, estimated MRI time at 1730 (2) Acute lumbar myofascial strain: Impression: Spinal x-rays were negative for acute abnormality. Pain is described as spasmic, likely myofascial strain. No radiation to his legs, no urinary, fecal Incontinence or retention Pain was severe at time of my interview in spite of IV Toradol Dilaudid 0.5 mg every 2 hours as needed's for severe pain Oxycodone 5 mg p.o. as needed moderate pain Scheduled Tylenol Scheduled Flexeril Qualifiers: Encounter type: initial encounter Qualified Code(s): S39.012A - Strain of muscle, fascia and tendon of lower back, initial encounter
[2024-11-18] MEDS: CYANOCOBALAMIN 1,000 MCG/ML VIAL IM ONE (16:59)
[2024-11-18] MEDS: LORazepam 2 MG/ML VIAL IVP STA ×2 (17:25→18:05)
[2024-11-18] MEDS: diphenhydrAMINE INJ 50 MG/ML VIAL IVP STA (17:25)
--- NOTE | 2024-11-18 18:18 | MRI Report ---
PROCEDURE: MRI Brain WO INDICATIONS: Syncope and collapse, dizziness TECHNIQUE: Noncontrast axial T1 spin echo, axial T2 fast spin echo, sagittal and axial FLAIR, coronal T2 fast sp in echo, axial gradient echo, axial diffusion and ADC through the brain. COMPARISON: 11/17/[address] FINDINGS: Image quality: Motion degraded CSF spaces: Basal cisterns are patent. Lateral ventricles are symmetric. Volume: Periventricular white matter signal abnormality is commonly seen with chronic microangiopathy . Volume loss is present. These findings are mild to moderate. Brain: No significant parenchymal edema. There is no acute diffusion restriction or hematoma. Craniofacial structures: No significant paranasal sinus opacity in the visualized region. Lens replac ements are seen. IMPRESSION: Limited MRI with motion artifact. No acute infarct or hematoma Reviewed by: Ramin Chance MD on 11/18/2024 6:16 PM PST Approved by: Ramin Chance MD on 11/18/2024 6:16 PM PST Station ID: [id number]
[2024-11-19 06:14] LABS: ABSOLUTE RETICS # AUTO 0.058 10^6/uL (0.020-0.110); RED BLOOD COUNT 3.9 10^6/uL (4.70-6.10); RETICULOCYTE COUNT % (AUTO) 1.48 % (0.5-2.3)
[2024-11-19 06:21] LABS: BASOPHILS % (AUTO) 0.9 %; EOSINOPHILS # (AUTO) 0.1 10^3/uL (0.0-0.7); EOSINOPHILS % (AUTO) 3.4 %; HCT - HEMATOCRIT 38.1 % (42.0-52.0); LYMPHOCYTES # (AUTO) 0.6 10^3/uL (1.5-3.5); LYMPHOCYTES % (AUTO) 18.9 %; MEAN CORPUSCULAR HEMOGLOBIN 33.5 pg (27.0-31.0); MEAN CORPUSCULAR HGB CONC 34.1 g/dL (32.0-36.0); MEAN CORPUSCULAR VOLUME 98.2 fL (80.0-94.0); MONOCYTES # (AUTO) 0.2 10^3/uL (0.0-1.0); MONOCYTES % (AUTO) 5.5 %; NEUTROPHILS # (AUTO) 2.3 10^3/uL (1.5-6.6); PLT - PLATELET COUNT 73 10^3/uL (130-450); RED BLOOD COUNT 3.88 10^6/uL (4.70-6.10); RED CELL DISTRIBUTION WIDTH 13.9 % (12.0-15.0); WHITE BLOOD COUNT 3.3 x10^3/uL (4.8-10.8)
[2024-11-19 06:29] LABS: CREATININE 0.6 mg/dL (0.6-1.3); POTASSIUM 3.2 mmol/L (3.5-4.5)
[2024-11-19 06:30] LABS: CALCIUM 8.1 mg/dL (8.5-10.3)
[2024-11-19 07:29] LABS: FERRITIN 267.7 ng/mL (23.9-336.2)
[2024-11-19] MEDS: PRENATAL VITAMIN TABLET PO SCH (07:40)
[2024-11-19] MEDS: POTASSIUM CHLORIDE 20 MEQ TABLET PO ONE (09:17)
[2024-11-19] MEDS: CYANOCOBALAMIN 500 MCG TABLET PO SCH (09:18)
[2024-11-19] MEDS ORDERED: PROCHLORPERAZINE 5 MG TABLET PO PRN (12:48)
[2024-11-19] MEDS: MECLIZINE 12.5 MG TABLET PO SCH (14:03)
--- NOTE | 2024-11-19 18:58 | PROVIDER PROGRESS NOTE ---
Subjective Prog Note Date Prog Note Date: 11/19/24 Subjective Pt reports feeling: No change Current Medications Current Medications Current Medications: Current Medications Generic Name Dose Route Start Last Admin Trade Name Freq PRN Reason Stop Dose Admin Acetaminophen 1,000 mg 11/17/24 18:05 11/19/24 17:44 Acetaminophen 500 Mg Tablet PO 1,000 mg Q8H ROSA Administration Cyanocobalamin 500 mcg 11/19/24 09:00 11/19/24 09:18 Cyanocobalamin 500 Mcg Tablet PO 500 mcg DAILY ROSA Administration Cyclobenzaprine HCl 10 mg 11/18/24 04:00 11/19/24 12:21 Cyclobenzaprine 10 Mg Tablet PO 10 mg Q8H ROSA Administration Enoxaparin Sodium 40 mg 11/18/24 09:00 11/19/24 09:18 Enoxaparin 40 Mg/0.4 Ml Syringe SUBQ 40 mg DAILY ROSA Administration Hydromorphone HCl 0.5 mg 11/17/24 18:45 11/19/24 16:11 Hydromorphone 0.5 Mg/0.5 Ml Syringe IVP 0.5 mg Q2H PRN Administration Severe Pain (Level 7-10) Hydroxyzine Pamoate 25 mg 11/18/24 15:02 Hydroxyzine Pamoate 25 Mg Capsule PO QPM PRN Insomnia Lorazepam 1 mg 11/19/24 19:00 Lorazepam 2 Mg/Ml Vial IVP Q8H PENDING SALE TO [facility] Meclizine HCl 25 mg 11/19/24 14:00 11/19/24 17:44 Meclizine 12.5 Mg Tablet PO 25 mg Q6HR ROSA Administration Ondansetron HCl 4 mg 11/17/24 18:05 11/18/24 01:27 Ondansetron Odt 4 Mg Tablet TL 4 mg Q6HR PRN Administration Nausea / Vomiting Ondansetron HCl 4 mg 11/17/24 18:05 11/19/24 18:29 Ondansetron 4 Mg/2 Ml Vial IVP 4 mg Q6HR PRN Administration Nausea / Vomiting Oxycodone HCl 5 mg 11/17/24 18:05 Oxycodone 5 Mg Tablet PO Q4HR PRN Pain 5 to 7 Pantoprazole Sodium 40 mg 11/17/24 21:00 11/19/24 09:18 Pantoprazole 40 Mg Tablet PO 40 mg BID ROSA Administration Multivit/Folic Acid/Iron 1 tab 11/19/24 08:00 11/19/24 07:40 Vitamin Tablet PO 1 tab DAILYWM ROSA Administration Prochlorperazine Edisylate 10 mg 11/17/24 18:29 11/17/24 18:41 Prochlorperazine 10 Mg/2 Ml Vial IVP 10 mg Q6HR PRN Administration Nausea / Vomiting Prochlorperazine Maleate 5 mg 11/19/24 12:48 Prochlorperazine 5 Mg Tablet PO Q6HR PRN Nausea / Vomiting Sodium Chloride 10 ml 11/17/24 18:05 Sodium Chloride Flush 0.9% 10 Ml Syringe IVP PRN PRN NEEDED PER PROVIDER ORDERS Sodium Chloride 10 ml 11/18/24 01:00 11/19/24 16:12 Sodium Chloride Flush 0.9% 10 Ml Syringe IVP 10 ml 0100,0900,1700 ROSA Administration Objective Vital Signs/Intake & Output Reviewed Vital Signs: Yes Vital Signs: Vital Signs x48h Temp Pulse Resp BP Pulse Ox 11/19/24 16:14 36.6 C 88 18 131/92 H 94 11/19/24 16:10 36.5 C 78 16 133/81 H 99 11/19/24 12:49 36.6 C 96 16 122/76 97 Intake & Output: Intake & Output 11/16/24 11/17/24 11/18/24 11/19/24 23:59 23:59 23:59 23:59 Intake Total 1600 / 1600 2790 / 2790 400 / 400 Balance 1600 / 1600 2790 / 2790 400 / 400 Weight (kg) 78.5 kg Objective General Appearance: positive No acute distress, Alert and Anxious Eyes Bilateral: positive PERRL ENT: positive Dry mucous membranes Neck: positive No JVD Respiratory: positive Breath sounds nml Cardiovascular: positive Regular rate & rhythm Abdomen: positive Non-tender Skin: positive Color nml Extremities: positive Non-tender Neurologic/Psychiatric: positive Oriented x3 Lab Results 11/19/24 05:31 11/19/24 05:31 Other Labs: Lab Results x24hrs 11/19/24 11/19/24 Range/Units 05:31 05:31 WBC 3.3 L (4.8-10.8) x10^3/uL RBC 3.90 L 3.88 L (4.70-6.10) 10^6/uL Hgb 13.0 L (14.0-18.0) g/dL Hct 38.1 L (42.0-52.0) % MCV 98.2 H (80.0-94.0) fL MCH 33.5 H (27.0-31.0) pg MCHC 34.1 (32.0-36.0) g/dL RDW 13.9 (12.0-15.0) % Plt Count 73 L (130-450) 10^3/uL MPV 11.0 (7.4-11.4) fL Reticulocyte % (Auto) 1.48 (0.5-2.3) % Neut # (Auto) 2.3 (1.5-6.6) 10^3/uL Lymph # (Auto) 0.6 L (1.5-3.5) 10^3/uL [place] # (Auto) 0.2 (0.0-1.0) 10^3/uL Eos # (Auto) 0.1 (0.0-0.7) 10^3/uL Baso # (Auto) 0.0 (0.0-0.1) 10^3/uL Absolute Nucleated RBC 0.00 x10^3/uL Nucleated RBC % 0.0 /100WBC Absolute Retic 0.058 (0.020-0.110) 10^6/uL Sodium 134 L (135-145) mmol/L Potassium 3.2 L (3.5-4.5) mmol/L Chloride 104 (101-111) mmol/L Carbon Dioxide 22 (21-32) mmol/L Anion Gap 8.0 (6-13) BUN 11 (6-20) mg/dL Creatinine 0.6 (0.6-1.3) mg/dL Estimated GFR (MDRD) 133 (>89) Glucose 108 H (74-104) mg/dL Calcium 8.1 L (8.5-10.3) mg/dL Iron 44 L (50-212) ug/dL TIBC 246 L (250-450) ug/dL % Saturation 18 L (20-50) % Transferrin 176 L (203-362) mg/dL Ferritin 267.7 (23.9-336.2) ng/mL Lactate Dehydrogenase 157 (140-271) IU/L Assessment/Plan Problem List (1) Syncope and collapse: Impression: Reports history of vertigo, symptoms becoming worse. Describes room spinning dizziness. This vertigo has caused significant nausea and vomiting. MRI, echo PT/OT Telemetry 11/18/2024: Echo has been performed. Patient has history of PTSD and claustrophobia which will complicate getting an MRI. The only other MRI he has ever had was under general anesthesia, which we are not capable of doing at this hospital. PT/OT evaluated, they report that his vertigo symptoms did not improve for worsen with any of the maneuvers that they attempted. I have increased his meclizine to 25 mg p.o. every 6 as needed. I am working with MRI, nursing, anesthesia to figure out a course of action to obtain an MRI to rule out cerebellar stroke without using general anesthesia. If MRI is capable of monitoring his heart rate, I will place him on a Precedex drip and give him a dose of Ativan. He will go to MRI escorted by an ICU nurse. If that is not possible, we may attempt giving him a cocktail of Ativan, Benadryl, Haldol for anxiolysis If we are unable to perform this MRI, and cannot find any other cause of his symptoms, we will need to reach out to an outside facility for potential neurology input or for MRI under general sedation. Care of this patient, Chart review, med orders to support successfully obtaining MRI, planning with multiple departments including anesthesia, MRI, nursing has taken a significant amount of time. Total time spent on this patient in excess of 65 minutes 1625: After discussion with all parties involved, current plan is to administer 1 mg IV Ativan and 25 mg IV Benadryl now, and plan for another dose of IV Ativan when he is called back to MRI, estimated MRI time at 1730 11/19/2024: MRI limited by motion artifact, but does not show any acute infarct or hematoma. Cruz maneuver attempted. No nystagmus, dizziness did not resolve after Cruz. I have changed his meclizine to 25 mg p.o. every 6 scheduled. Echocardiogram shows no reduction in EF, no significant valvular disease. I believe this is likely vestibular neuritis. Guidelines suggest combination therapy of high-dose meclizine, parenteral antiemetics and benzodiazepines. I will hold in 1 more night as he requires parenteral medication (2) Acute lumbar myofascial strain: Impression: Spinal x-rays were negative for acute abnormality. Pain is described as spasmic, likely myofascial strain. No radiation to his legs, no urinary, fecal Incontinence or retention Pain was severe at time of my interview in spite of IV Toradol Dilaudid 0.5 mg every 2 hours as needed's for severe pain Oxycodone 5 mg p.o. as needed moderate pain Scheduled Tylenol Scheduled Flexeril PT/OT Qualifiers: Encounter type: initial encounter Qualified Code(s): S39.012A - Strain of muscle, fascia and tendon of lower back, initial encounter
[2024-11-19] MEDS: LORazepam 2 MG/ML VIAL IVP SCH (19:54)
[2024-11-19] MEDS ORDERED: LIDOCAINE PATCH 4% TOP SCH (20:05)
[2024-11-19] MEDS: KETOROLAC 15 MG/ML VIAL IVP SCH (22:13)
[2024-11-19] MEDS: SODIUM CHLORIDE FLUSH 0.9% 10 ML SYRINGE IVP PRN (22:14)
[2024-11-20] MEDS: DICLOFENAC SODIUM 1% GEL 50 GM TUBE TOP PRN (02:45)
[2024-11-20] MEDS: KETOROLAC 15 MG/ML VIAL IVP SCH (04:37)
[2024-11-20 05:15] LABS: BASOPHILS % (AUTO) 1.1 %; EOSINOPHILS # (AUTO) 0.1 10^3/uL (0.0-0.7); EOSINOPHILS % (AUTO) 4.1 %; HCT - HEMATOCRIT 35.6 % (42.0-52.0); HGB - HEMOGLOBIN 11.9 g/dL (14.0-18.0); LYMPHOCYTES # (AUTO) 0.6 10^3/uL (1.5-3.5); LYMPHOCYTES % (AUTO) 23.7 %; MEAN CORPUSCULAR HEMOGLOBIN 33.1 pg (27.0-31.0); MEAN CORPUSCULAR HGB CONC 33.4 g/dL (32.0-36.0); MEAN CORPUSCULAR VOLUME 98.9 fL (80.0-94.0); MEAN PLATELET VOLUME 10.8 fL (7.4-11.4); MONOCYTES # (AUTO) 0.2 10^3/uL (0.0-1.0); MONOCYTES % (AUTO) 8.9 %; NEUTROPHILS # (AUTO) 1.7 10^3/uL (1.5-6.6); NEUTROPHILS % (AUTO) 62.2 %; PLT - PLATELET COUNT 75 10^3/uL (130-450); RED CELL DISTRIBUTION WIDTH 13.6 % (12.0-15.0); WHITE BLOOD COUNT 2.7 x10^3/uL (4.8-10.8)
[2024-11-20 05:30] LABS: CALCIUM 7.9 mg/dL (8.5-10.3); CREATININE 0.6 mg/dL (0.6-1.3); POTASSIUM 3.3 mmol/L (3.5-4.5)
[2024-11-20 05:54] LABS: DIFFERENTIAL COMMENT MANUAL=AUTO DIFF
[2024-11-20] MEDS: POTASSIUM CHLORIDE 20 MEQ TABLET PO ONE ×2 (09:05→10:08)
--- NOTE | 2024-11-20 10:59 | Discharge Summary ---
Discharge Summary Admit Date: 11/17/24 Discharge Date: 11/20/24 Discharging Provider: Colt Schneider NP Primary Care Provider: Rosaura Rizo Code Status: Do Not Attempt Resuscitation DIAGNOSES Admission Diagnoses: Syncope and collapse Acute lumbar myofascial strain Dehydration Discharge Diagnoses with Status of Each Condition: Vestibular neuritisactive Syncope and collapseresolved Acute lumbar myofascial strainactive Dehydrationresolved HPI History of Present Illness: 69-year-old male Hx vertigo, hiatal hernia, diverticulitis, psoriatic arthritis presents to the hospital with increasing episodes of dizziness. He reports room spinning dizziness, causing nausea and occasional vomiting. He reports 1 episode where he got up too fast and walked into the next room and passed out, waking up on the floor. This was what led to the decision to present to the hospital. He reports spasmic back pain in his middle back In the ER, L-spine x-ray, shoulder x-ray, CT head were performed and found to be negative. CBC, CMP unremarkable. Hospitalist was contacted for observation for syncope and collapse, intractable back pain, rule out cerebellar stroke HOSPITAL COURSE Hospital Course: Patient was admitted to the hospital and underwent echocardiogram which showed EF 55%, no severe valvular disease. MRI brain, while limited by motion artifact, did not show any acute infarct or hematoma. Cruz maneuvers were performed with no palliation of symptoms. Today, after being on scheduled max dose of meclizine for a day, his symptoms have improved. He reports his symptoms today as feeling as if he is on a boat, but he no longer has full room spinning dizziness. He is still having significant pain from back strain, he is being discharged with a muscle relaxer, Voltaren cream, and a very short dose of oxycodone. He has been instructed to follow-up with his PCP within a week or 2 ALLERGIES Allergies Allergy/AdvReac Type Severity Reaction Status Date / Time ampicillin Allergy Unknown Unknown Verified 11/17/24 12:08 Cephalosporins Allergy Unknown Unknown Verified 11/17/24 12:08 doxycycline Allergy Unknown Verified 11/17/24 12:08 ibuprofen Allergy Emesis Verified 11/17/24 12:08 methotrexate Allergy Anxiety Verified 11/17/24 12:08 Penicillins Allergy Unknown Verified 11/17/24 12:08 prednisone Allergy Hallucinati Verified 11/17/24 12:08 ons quetiapine (From Seroquel) AdvReac Unknown Hallucinati Verified 11/17/24 12:08 ons MEDICATIONS Ambulatory Orders Medication Instructions Recorded Confirmed omeprazole 20 mg capsule,delayed 20 mg PO BID 11/17/24 11/17/24 release acetaminophen 500 mg tablet 1,000 mg (2 x 500 mg) PO Q8H 5 11/20/24 days #30 tabs cyanocobalamin (vitamin B-12) 500 500 mcg PO DAILY 30 days #30 tabs 11/20/24 mcg tablet cyclobenzaprine 10 mg tablet 10 mg PO Q8H 10 days #30 tabs 11/20/24 diclofenac sodium 1 % topical gel 2 g topical QID PRN Mild Pain 11/20/24 (Arthritis Pain (diclofenac)) (Level 1-3) 10 days #100 grams meclizine 12.5 mg tablet 25 mg (2 x 12.5 mg) PO Q6HR 10 11/20/24 days #90 tabs oxycodone 5 mg tablet 5 mg PO Q4HR PRN Pain 5 to 7 3 11/20/24 days #14 tabs vit,calcium 27-ferrous 1 tab PO DAILYWM 30 days #30 tabs 11/20/24 fum 60 mg iron-folic acid 1 mg tablet (Trinatal Rx 1) prochlorperazine maleate 5 mg 5 mg PO Q6HR PRN Nausea / Vomiting 11/20/24 tablet 10 days #30 tabs PHYSICAL EXAM AT DISCHARGE General Appearance: positive No acute distress and Alert Eyes Bilateral: positive Normal inspection and PERRL ENT: positive ENT inspection nml Neck: positive Nml inspection Respiratory: positive Chest non-tender and No respiratory distress Cardiovascular: positive Regular rate & rhythm and No murmur Peripheral Pulses: positive 2+ Abdomen: positive Non-tender Back: positive Other (Psoriatic rash on back) Skin: positive Skin rash (History of psoriasis) Extremities: positive Non-tender Neurologic/Psychiatric: positive Oriented x3 LABS 11/20/24 04:55 11/20/24 04:55 DIAGNOSTIC IMAGING Diagnostic Imaging Results Comments: MRI, echocardiogram unremarkable FOLLOW UP Follow Up: With PCP and with vestibular specialist TIME SPENT Time Spent in Discharge (Minutes): 25 Discharge Plan Discharge Patient Disposition: Home, Self Care Condition: Fair Medically Cleared Date:: 11/20/24 Prescriptions: New acetaminophen 500 mg Tablet 1,000 mg PO Q8H 5 Days Qty: 30 0RF cyanocobalamin (vitamin B-12) 500 mcg Tablet 500 mcg PO DAILY 30 Days Qty: 30 0RF cyclobenzaprine 10 mg Tablet 10 mg PO Q8H 10 Days Qty: 30 0RF diclofenac sodium [Arthritis Pain (diclofenac)] 1 % Gel 2 g topical QID PRN (Reason: Mild Pain (Level 1-3)) 10 Days Qty: 100 0RF meclizine 12.5 mg Tablet 25 mg PO Q6HR 10 Days Qty: 90 0RF oxycodone 5 mg Tablet 5 mg PO Q4HR PRN (Reason: Pain 5 to 7) 3 Days Qty: 14 0RF Trinatal Rx 1 60 mg iron-1 mg Tablet 1 tab PO DAILYWM 30 Days Qty: 30 0RF prochlorperazine maleate 5 mg Tablet 5 mg PO Q6HR PRN (Reason: Nausea / Vomiting) 10 Days Qty: 30 0RF Continued omeprazole 20 mg capsule,delayed release(DR/EC) 20 mg PO BID Patient Comments: take 1 capsule by mouth twice a day 30 MINUTES BEFORE A MEAL Activity Restrictions: Activity as Tolerated Diet: Regular Health Concerns: You are a 69-year-old male with history significant for vertigo and vestibular neuritis. You are already established with a vestibular specialist. You came in with such severe vertigo like symptoms that you had experienced vomiting and passed out. You were brought into the hospital so you could undergo MRI and echocardiogram. Both of these were unremarkable, and did not explain your symptoms. We attempted what are called Cruz maneuvers, which should fix any vertigo. This did not help, so your symptoms are likely due to vestibular neuritis. The treatment for this is largely supportive. I am sending you home with meclizine 25 mg p.o. every 6 hours as well as Compazine 5 mg p.o. every 6 hours as needed for nausea. You were noted to have an anemia due to vitamin deficiencies. We gave you dose of vitamin B12 intramuscularly, I am sending you home on a B12 supplement and a vitamin with folate. You also have been having back pain. I am sending you home with a prescription for Voltaren cream To put on your back. You could also use any [id number] pain relief creams if they are cheaper. I have written for Tylenol, but this is also available [id number]. I gave you a very short course of oxycodone 5 mg p.o. every 6 hours for severe pain. Please follow-up with your primary care physician within the next week or 2 for any further management of your symptoms. I would also encourage you to see your vestibular specialist. Please remain as active as possible given your symptoms. I believe you to be fully capable of performing activities of daily living Print Language: Panamanian Patient Instructions: Dizziness Vertigo Balance Safety Stand Alone Forms: PCP List
[2024-11-20 12:20] VITALS: BP 137/82; TEMP 97.3; O2SAT 95
== END 2024-11-20 12:30 | disposition home or self-care (01) | DRG 149 ==
LOC: MS2 11:59 → ED 11:59 → MS2 18:10
PROVIDERS: ADMIT Nurse Practitioner Acute Care; ATTEND Nurse Practitioner Acute Care